=== PATIENT | female | born 1960 | race Caucasian/White ===

== ENCOUNTER → 2018-03-20 10:08 | Outpatient (CLI) | payer OTHER, SELFPAY ==
--- NOTE | 2018-03-20 10:01 | DI.REPORT_ITS ---
SYMPTOM/DIAGNOSIS: RIGHT BIMALLEOLAR FRACTURE RIGHT ANKLE: 03/20 Three views were obtained and show previously described bimalleolar fracture. The fracture appears to be healing with no gross interval change in alignment of fracture fragments in comparison with examination of February 18.
== END ==
PROVIDERS: Visit Provider Physician Assistant
DX: S82.841D Displaced bimalleolar fracture of right lower leg, subsequent encounter for closed fracture with routine healing (principal)
CPT/HCPCS: 73610

== ENCOUNTER 2018-04-28 17:05 | Outpatient (REF) | payer OTHER, SELFPAY | END 2018-04-28 17:25 | LOC: NCHCN 17:05 | PROVIDERS: Visit Provider Internal Medicine | DX: Z87.440 Personal history of urinary (tract) infections (principal) | CPT/HCPCS: 87077; 87086; 87186 ==

== ENCOUNTER 2019-01-13 14:50 | Outpatient (REF) | payer BC, SELFPAY ==
[2019-01-13 21:48] LABS: Anion Gap 11.3 mmol/L (3-11); BUN 12 mg/dL (7-18); CO2 27.7 mmol/L (21.0-32.0); CREATININE 0.53 mg/dL (0.55-1.02); Calcium 9.2 mg/dL (8.5-10.1); Chloride 104 mmol/L (98-107); Glucose 117 mg/dL (70-100); Potassium 3.9 mmol/L (3.5-5.1); Sodium 143 mmol/L (136-145)
[2019-01-13 22:27] LABS: Calculated LDL 113; Cholesterol 217 mg/dL (50-200); HDL Cholesterol 54 mg/dL (40-60); Triglyceride 250 mg/dL (30-150)
== END 2019-01-13 15:10 ==
LOC: NCHCN 14:50
PROVIDERS: PCP Family Medicine; Visit Provider Specialist/Technologist Athletic Trainer
DX: Z00.00 Encounter for general adult medical examination without abnormal findings (principal); Z13.220 Encounter for screening for lipoid disorders; Z13.228 Encounter for screening for other metabolic disorders
CPT/HCPCS: 80048; 80061; 83721

== ENCOUNTER 2019-01-26 00:27 | Outpatient (CLI) | payer BC, SELFPAY ==
--- NOTE | 2019-01-26 13:09 | DI.CTLCSR_ITS ---
SYMPTOM/DIAGNOSIS: SMOKER, F17.[address] FOR LUNG CANCER SCREENING: Comparison is made with 11/06/17. The heart size is normal. Coronary artery calcifications and mild aortic calcifications are noted. There are no pleural or pericardial effusions or evidence of adenopathy. There is underlying centrilobular emphysema. There is mild scarring in the medial right middle lobe and lingula. No pulmonary nodules are seen. Scoliosis and degenerative changes are noted in the spine. Gallstones are incidentally noted. IMPRESSION: Lung Rads, Category 1. Negative. Yearly low dose screening CT is recommended. Lung-RAD Category: Lung RADS Category 1- Negative
== END 2019-01-26 00:47 ==
PROVIDERS: PCP Family Medicine; Visit Provider Specialist/Technologist Athletic Trainer
DX: Z12.2 Encounter for screening for malignant neoplasm of respiratory organs (principal); F17.210 Nicotine dependence, cigarettes, uncomplicated; J98.4 Other disorders of lung
CPT/HCPCS: G0297

== ENCOUNTER 2020-01-28 00:34 | Outpatient (CLI) | payer OTHER, SELFPAY ==
--- NOTE | 2020-01-28 12:35 | DI.CTLCSR_ITS ---
EXAM: CT CHEST LUNG CANCER SCREEN CLINICAL HISTORY: The patient reportedly has a History of Smoking 30 pack years and presently smokes or has quit the past 15 years. TECHNIQUE: Imaging Protocol: Axial computed tomography images with coronal and sagittal reformatted images were created and reviewed COMPARISON: CT CT CHEST LUNG CANCER SCREEN from 01/26/2019 FINDINGS: Tracheobronchial tree: Patent where visualized. Mediastinum and Marquita: No dominant adenopathy or fluid collection. Pulmonary parenchyma: No consolidation or dominant measurable mass. Mild to moderate centrilobular em physema. Scattered areas of parenchymal scarring. Lung Nodules: None. Pleura: No effusion or pneumothorax. Heart: The heart is not dilated. Moderate coronary artery calcification is present. No significant p ericardial effusion. Aorta: Thoracic aorta non-dilated.Atherosclerosis. Upper abdomen: Fatty infiltration of the liver. Bones: Degenerative changes. Left convex scoliosis. Unchanged fusion of multiple left ribs and the left transverse processes in the upper thoracic spine. Soft Tissues: Unremarkable. IMPRESSION: No pulmonary nodules. Lung RADS Cat 1 - Negative: No nodules and definitely benign nodules Lung-RADS 1.0 CATEGORIES: Category 0 - Prior chest CT exam(s) being located for comparison. Category 1 - Annual screening in 12 months. No nodules or definitely benign nodules. Category 2 - Annual screening in 12 months. Benign appearance. Nodules with low likelihood of becomin g active cancer. Category 3 - 6-month follow-up. Probably benign. Short-term follow-up suggested. Nodules with low lik elihood of becoming active cancer. Category 4A - 3-month follow-up and CT/PET if >8 mm in size. Suspicious finding. Findings which requi re additional testing. Category 4B - Findings which require additional testing and tissue sampling. Suspicious finding. C Added to Any of the Above - History of prior lung cancer screening. S Added to Any of the Above - Significant unexpected other finding. RADIATION DOSE DELIVERED: Total DLP DATA REPOSITORY: All CT scans at this facility are submitted to the National Radiology Data Registry (NRDR) Dose Index Registry (DIR) with the [employer] (ACR). RADIATION OPTIMIZATION: All CT scans at this facility use at least one of these dose optimization te chniques: automated exposure control; mA and/or kV adjustment per patient size (includes targeted exa ms where dose is matched to clinical indication); or iterative reconstruction.
== END 2020-01-28 00:54 ==
PROVIDERS: PCP Internal Medicine; Visit Provider Internal Medicine
DX: Z12.2 Encounter for screening for malignant neoplasm of respiratory organs (principal); J43.8 Other emphysema; K76.0 Fatty (change of) liver, not elsewhere classified; Z87.891 Personal history of nicotine dependence
CPT/HCPCS: G0297

== ENCOUNTER 2020-03-26 13:32 | Outpatient (REF) | payer OTHER, SELFPAY | END 2020-03-26 13:52 | LOC: NCHCN 13:32 | PROVIDERS: PCP Internal Medicine; Visit Provider Internal Medicine | DX: R19.7 Diarrhea, unspecified (principal) | CPT/HCPCS: 87505; 82270; 83630 ==

== ENCOUNTER 2020-04-01 02:19 | Outpatient (CLI) | payer OTHER, SELFPAY ==
[2020-04-03 17:57] LABS: COVID-19 RT-PCR Result NEGATIVE (Negative)
== END 2020-04-01 02:39 ==
PROVIDERS: PCP Internal Medicine; Visit Provider Surgery
DX: Z01.818 Encounter for other preprocedural examination (principal)
CPT/HCPCS: U0003

== ENCOUNTER 2020-04-05 10:27 | Day surgery (SDC) | payer OTHER, SELFPAY ==
[2020-04-05 10:39] VITALS: BP 138/78; PULSE 97; RESP 18; TEMP 36.2; O2SAT 94
[2020-04-05] MEDS: Lactated Ringers 1,000 ML 80 ML IV (11:09)
--- NOTE | 2020-04-05 13:28 | BOWEL_PTH ---
PATIENT: Karen Ramos LOC: [facility] U#:[id number] AGE/SX: 60/F ROOM: RE04/05/[address]: Priti Salmeron MD : 1960 BED: DIS: 04/05/2020 SPEC #: [id number] RECD: 04/05/20 17:35 STATUS: JEFF REQ #: [id number] CECY: 04/05/20 13:[address]: Priti Salmeron DEPT: Surgical Specimen RECD BY: Sarah Ralph ENTERED: 04/05/20 17:37 SP TYPE: Bowel OTHR DR: Hawk Miller Tissues: 1 - STOMACH BIOPSY 2 - BIOPSY BOWEL Procedures: GROSS AND MICRO LEVEL 4 Comments: [id number]
--- NOTE | 2020-04-05 14:02 | W.PM.DSUDISC ---
Discharge Plan Disposition Patient Disposition: HOME Condition: Good Discharge Details Reason For Visit: EGD, Colonoscopy Attending Provider: Priti Salmeron Primary Care Provider: Hawk Miller Home Meds and New Rx's Prescriptions: New famotidine [Pepcid] 20 mg tablet 20 mg PO DAILY Qty: 30 RF: 2 Continued venlafaxine 75 mg capsule,extended release 24hr 75 mg PO DAILY RF: 0 Incruse Ellipta 62.5 mcg/actuation blister with device 1 inh IH DAILY RF: 0 naproxen sodium [Aleve] 220 MG tablet 440 mg PO BID RF: 0 albuterol sulfate [ProAir HFA] 8.5 GM HFA aerosol inhaler 2 puff Inhalation Q6H PRN RF: 0 Mucinex 1,200 MG tablet extended release 12hr 1,200 mg PO DAILY RF: 0 Advair HFA 60 PUFF/INH HFA aerosol inhaler 1 puff PO DAILY RF: 0 Discharge Instructions Additional Instructions: Findings: Your upper endoscopy showed inflammation in the esophagus and stomach. My office will contact you with biopsy results. If possible, limit the amount of Aleve taken as this can irritate the stomach. A daily antacid was sent to your pharmacy to treat this. One small polyp was removed from the colon. Follow up: If the colon polyp is adenomatous, plan for a colonoscopy in 5-7 years. Please call if you develop: fevers >101.5 Nausea or Vomiting Abdominal pain that is not transient DAY SURGERY UNIT POST COLONOSCOPY INSTRUCTIONS 1. Because there will be medication in your system for the next 24 hours, you may feel a little sleepy. Your coordination will be affected. Therefore: a. Do not drive or operate dangerous equipment for 24 hours. b. Do not drink alcohol beverages for 24 hours (not even beer). c. Plan to go home and rest for the day. 2. Generally there are no restrictions on your activity after a day or so has gone by, but you may feel a bit fatigued for a few days. 3 After you arrive home you may have a light meal and return to a normal diet as you can tolerate it without feeling sick to your stomach. 4. After surgery, you may feel pain or discomfort. This should be only transient, but if it persists please contact your doctor. 5. If there are any questions regarding the findings of your procedure, please feel free to contact your doctor. 6. If you are unable to contact your doctor with a problem, contact the hospital at [phone]. 7. Continue all your regular medications unless directed otherwise. I understand the above instructions and have no questions. Signature of Patient or Responsible Adult Escort Date/Time Name of Responsible Adult Escort Signature of Nurse Date/Time Activity:: Activity as Tolerated Diet:: As Tolerated Discharge Orders Discharge Orders: Discharge Order (Routine); Ordered 04/05/20 Ordered By: Priti Salmeron DS: Diagnosis Discharge Diagnosis (1) Esophagitis: Status: Acute (2) Gastritis: Status: Acute (3) Diverticulosis: Status: Acute (4) Colon polyp: Status: Acute
--- NOTE | 2020-04-05 14:05 | W.COLOREPORT ---
Date of service: 04/05/20 Time of Service: 14:06 Colonoscopy Report Date of procedure: 04/05/20 Pre-op diagnosis general: Dysphagia, screening colonoscopy Post-op diagnosis procedure note: other (Esophagitis, gastritis, diverticulosis, sigmoid polyp) Procedure: EGD with gastric biopsies Colonoscopy with cold forceps polypectomy Surgeon: Priti Salmeron Anesthesia proc note operative: MAC Indications: This 60 year old patient reports feeling like bread/spaghetti will get stuck in her esophagus. She is due for a screening colonoscopy. Her last one in 2007 showed polyps. No FH colon cancer. Procedure Description: The patient was placed in the left lateral position and propofol titrated to sedation. The endoscope was advanced into the esophagus under direct visualization. The scope was passed through the stomach and into the duodenum. There was mild duodenitis in the bulb but no ulceration noted. The stomach itself showed moderate gastritis including on retroflexed view of the fundus and lesser curvature. The antrum had a few very shallow ulcerations. Biopsies were taken from the gastric antrum. The GE junction was inspected and showed no significant stricture, masses or Barretts. There was mild reflux esophagitis noted. The scope was slowly withdrawn with no other esophageal lesions found. Digital rectal examination revealed no abnormalities. The scope was advanced to the cecum without difficulty. The ileocecal valve and appendiceal orifice were clearly identified. The prep was good. The scope was slowly withdrawn over the course of greater than 6 minutes with no abnormalities seen in the ascending, transverse, descending colon. In the sigmoid colon, mild diverticulosis was noted. A diminuitive polyp at 35cm was removed with the cold forcepts. The rectum was normal including on retroflexed view. The patient tolerated the procedure well and was stable to recovery. Plan for routine screening colonoscopy in 5-7 years if the polyp is adenomatous.
[2020-04-05 14:30] VITALS: BP 114/65; PULSE 81; RESP 16; TEMP 36.2; O2SAT 94
== END 2020-04-05 14:44 | disposition home or self-care (01) ==
PROVIDERS: PCP Internal Medicine; Visit Provider Surgery
PROC: (CPT 45380; principal; 2020-04-05 11:30)
DX: Z12.11 Encounter for screening for malignant neoplasm of colon (principal); D12.5 Benign neoplasm of sigmoid colon; K29.80 Duodenitis without bleeding; K29.70 Gastritis, unspecified, without bleeding; K21.0 Gastro-esophageal reflux disease with esophagitis
CPT/HCPCS: 45380; 43239; 88305; J2001; J2704

== ENCOUNTER 2020-04-22 14:44 | Inpatient (IN) | payer OTHER, SELFPAY ==
[2020-04-22] VITALS (77 sets, daily range): BP systolic 90–153; BP diastolic 45–117; PULSE 80–115; RESP 2–32; TEMP 36.4–37.1; O2SAT 87–100
--- NOTE | 2020-04-22 14:45 | RT.EKG_ITS ---
APPROVED REPORT Exam: Resting ECG Patient Location: E HR:87 bpm ECG Measurements Heart Rate [address] 148 P 0 QRSd 94 QRS 72 QT 394 T 32 QTc 474 Conclusion Sinus rhythm...normal P axis, V-rate 50- 99 Abnormal T, consider ischemia, anterior leads...T <-0.20mV, V2-V4 no old for comaprison
--- NOTE | 2020-04-22 15:00 | DI.RAD_ITS ---
EXAM: XR PORTABLE CHEST AP CLINICAL HISTORY: cough TECHNIQUE: 2D digital imaging was performed. COMPARISON: CR CHEST 2 VIEWS PA,LAT from 08/15/[address] CHEST LUNG CANCER SCREEN from 01/28/2020 FINDINGS: MEDIASTINUM: Normal. HEART: Normal. PULMONARY VASCULATURE: Normal. LUNGS: No focal consolidating infiltrates. Mild diffuse interstitial disease which appears chronic. PLEURAL SPACE: No pleural effusion or pneumothorax. BONE:Within normal limits for the patient's age. OTHER FINDINGS:Normal. IMPRESSION: No acute pulmonary findings. DATA REPOSITORY: RADIATION DOSE DELIVERED:
[2020-04-22 15:24] LABS: Abs Immature Grans 0.07 10^3/uL (0.0-0.06); Absolute Eosinophil Count 0.22 10^3/uL (0.0-0.7); Absolute Lymphocyte Count 3.19 10^3/uL (1.2-3.4); Basophils % 0.6; Eosinophils % 1.4; HCT 48.9 % (36.0-46.0); HGB 16.5 g/dL (11.2-15.7); Immature Grans % 0.5; Lymphocytes % 20.6; MCH 35.6 pg (27.0-33.0); MCHC 33.7 % (32.0-36.0); MCV 105.6 fL (80-95); MPV 10.4 fL (8.0-11.0); Monocytes % 11.5; Neutrophils % 65.4; Nucleated RBC 0 %; Platelet Count 247 10^3/uL (130-400); RBC 4.63 10^6/uL (3.93-5.22); RDW 13.1 % (11.7-14.6); RDW-SD 51.3 fL
[2020-04-22] MEDS: methylPREDNISolone SUCC 125 MG VIAL IVP (15:27)
[2020-04-22 15:34] LABS: Absolute Basophil Count 0.09 10^3/uL (0.0-0.2); Absolute Monocyte Count 1.78 10^3/uL (0.1-0.8); Absolute Neutrophil Count 10.14 10^3/uL (1.2-6.7)
[2020-04-22 15:37] LABS: Lactate 1.1 mmol/L (0.9-1.7)
[2020-04-22 15:43] LABS: Diff Comment Agrees w/ Instrument; Macrocytosis 1+; Polychromasia Present
[2020-04-22 15:56] LABS: ALT 44 U/L (14-59); AST 35 U/L (15-37); Albumin 3.7 g/dL (3.4-5.0); Alkaline Phosphatase 143 U/L (46-116); Anion Gap 8.8 mmol/L (3-11); BUN 5 mg/dL (7-18); Bilirubin, Total 1.3 mg/dL (0.2-1.0); CO2 31.2 mmol/L (21.0-32.0); CREATININE 0.63 mg/dL (0.55-1.02); Calcium 9.4 mg/dL (8.5-10.1); Chloride 98 mmol/L (98-107); Glucose 111 mg/dL (74-106); Potassium 3.1 mmol/L (3.5-5.1); Sodium 138 mmol/L (136-145); Total Protein 8.3 g/dL (6.4-8.2); Troponin I < 0.05 ng/mL (<0.06)
--- NOTE | 2020-04-22 16:00 | DI.CT_ITS ---
EXAM: CT CHEST PE CTA CLINICAL HISTORY: cough, shortness of breath, chest pain. TECHNIQUE: Imaging Protocol: Axial CT angiography was performed with multi-slice acquisition and mu lti-planar and/or 3D reconstructions. CONTRAST MATERIAL: Intravenous: Omnipaque 350 Contrast volume:100 ml COMPARISON: CT CT CHEST LUNG CANCER SCREEN from 01/28/2020 FINDINGS: Pulmonary Arteries: No evidence of filling defect to suggest pulmonary emboli. Tracheobronchial tree: Patent where visualized. Mediastinum and Marquita: No dominant adenopathy or fluid collection. Pulmonary parenchyma: Changes of centrilobular emphysema. Small area of atelectasis or infiltrate an teriorly in the right upper lobe. Pleura: No effusion or pneumothorax. Heart: The heart is not dilated. Moderate coronary artery calcifications are seen. Aorta: Thoracic aorta non-dilated. Upper abdomen: Unremarkable. Bones: Degenerative changes. IMPRESSION: No evidence of pulmonary embolism or other acute abnormality.. RADIATION DOSE DELIVERED: 361.56mGy.cm Total DLP DATA REPOSITORY: All CT scans at this facility are submitted to the National Radiology Data Registry (NRDR) Dose Index Registry (DIR) with the [employer] (ACR). RADIATION OPTIMIZATION: All CT scans at this facility use at least one of these dose optimization te chniques: automated exposure control; mA and/or kV adjustment per patient size (includes targeted exa ms where dose is matched to clinical indication); or iterative reconstruction.
[2020-04-22] MEDS: Omnipaque 350 MG/ML 100 ML BTL IJ (16:34)
[2020-04-22] MEDS: Normal Saline - Diluent 50 ML VIAL IV (16:36)
--- NOTE | 2020-04-22 16:52 | ED.GENADUL_ITS ---
Discharge Plan Disposition Patient Disposition: [facility] INPATIENT Condition: Serious Discharge Details Clinical Impression: Asthma exacerbation in COPD, Hypoxia Primary Care Provider: Hawk Miller ED Provider: Dean Jernigan Home Meds and New Rx's Prescriptions: No Action venlafaxine 75 mg capsule,extended release 24hr 75 mg PO DAILY RF: 0 Incruse Ellipta 62.5 mcg/actuation blister with device 1 inh IH DAILY RF: 0 naproxen sodium [Aleve] 220 MG tablet 440 mg PO BID RF: 0 albuterol sulfate [ProAir HFA] 8.5 GM HFA aerosol inhaler 2 puff Inhalation Q6H PRN RF: 0 Mucinex 1,200 MG tablet extended release 12hr 1,200 mg PO DAILY RF: 0 Advair HFA 60 PUFF/INH HFA aerosol inhaler 1 puff PO DAILY RF: 0 famotidine [Pepcid] 20 mg tablet 20 mg PO DAILY Qty: 30 RF: 2 Medical Decision Making 17:00 -- 60-year-old female with COPD here with productive cough, fatigue, shortness of breath, recent chest pain. Patient is hypoxic and requiring oxygen. Concern for pneumonia with COPD exacerbation versus pulmonary embolism. Patient received Solu-Medrol 125 mg IV. Will give albuterol inhaler. Screening ECG was reviewed and interpreted by me: 87 bpm, T wave inversions are noted anteriorly V1 to V3. Consider ACS. Will check troponin. Will attempt to obtain old ECG. Initial labs reviewed and leukocytosis noted. Lactate normal. Will initiate antibiotic coverage with cefepime 2 g IV. Patient does have hypokalemia of 3.1. I will give potassium chloride IV. Initial troponin negative. Chest x-ray reviewed and interpreted by radiology: No acute cardiopulmonary disease. Consider pulmonary embolism. Will obtain CT of the chest. --CT of the chest was reviewed and interpreted by radiology: No acute findings. Respiratory therapist is evaluating patient. --Increased air movement after neb treatments. 19:19 --despite multiple DuoNeb's and Solu-Medrol, respiratory therapy notes patient desaturating to mid 80s off oxygen at rest. Patient is not typically on oxygen at home. Plan will be to admit for COPD exacerbation. We will contact hospitalist. Will maintain PUI status. 19:25 --I spoke with Dr. Hannon, discussed ED presentation and course, he will admit the patient. Care transition to hospitalist service. HPI General Mode of arrival: EMS . Date/Time Provider Initiated Documentation: 04/22/20 15:05 . Limitations to Documentation: no limitations . Information obtained by: patient and EMS . HPI Narrative: 60-year-old female smoker with history of COPD, presents with chief complaint of difficulty breathing. Patient notes she has had shortness of breath for the past 1 week. Symptoms are worsening. She also notes productive cough. She is concerned that she may have pneumonia. Oxygen saturations lower than normal in the lower 80s today at home. Patient also notes generalized weakness, some dizziness, sinus congestion and headache frontal. Patient also notes that she has had some pain in her left chest that goes to her left shoulder since yesterday. This pain has seemed to be improved today. She denies leg swelling or calf pain. Patient has no recent travel, no contact with known Kovic illness. Related Data Home Medications Medication Instructions Recorded Confirmed Mucinex 1,200 mg PO DAILY 01/21/18 04/22/20 albuterol sulfate [ProAir HFA] 2 puff INHALATION Q6H PRN inhaler 01/21/18 04/22/20 naproxen sodium [Aleve] 440 mg PO BID 01/21/18 04/22/20 Advair HFA 1 puff PO DAILY 03/10/18 04/22/20 umeclidinium 62.5 mcg/actuation 1 inh IH DAILY 04/10/19 04/22/20 blister powder for inhalation venlafaxine 75 mg capsule,extended 75 mg PO DAILY 03/29/20 04/22/20 release 24 hr famotidine [Pepcid] 20 mg PO DAILY #30 tab 04/05/20 04/22/20 Previous Rx's Medication Instructions Recorded famotidine [Pepcid] 20 mg PO DAILY #30 tab 04/05/20 Allergies Allergy/AdvReac Type Severity Reaction Status Date / Time Sulfa (Sulfonamide AdvReac Severe LOWERS BP Unverified 04/22/20 14:59 Antibiotics) General Stated Complaint: SOB RADHA: 2 Review of Systems All systems reviewed & are unremarkable except as noted in HPI and below Constitutional Constitutional: Denies fever(s) Cardiovascular Cardiovascular: Reports as per HPI Respiratory Respiratory: Reports as per HPI [facility] Medical History Adenomatous colon polyp Alcohol abuse COPD (chronic obstructive pulmonary disease) Depression H/O recurrent urinary tract infection Lower back pain Smoker Varicose veins of both lower extremities Surgical History History of shoulder surgery Hx of cataract surgery bilat. Hx of tonsillectomy Tubal ligation status Family History Other Cancer Diabetes Heart disease Social History Smoking/Tobacco Use Status: Current every day Tobacco Type: cigarettes Alcohol Intake: current Alcohol Intake frequency: 0-2 drinks per day Alcohol type: hard liquor Drug use: Never Substance use type: does not use Do you feel safe at home: Yes Do you feel safe in your relationship?: Yes Exam Const General: cooperative HENMT Mouth: moist mucous membranes Eyes Conjunctivae: normal conjunctivae Sclera: normal sclerae Neck Neck: trachea midline and supple Resp Effort & Inspection: able to speak in complete sentences, cough and tachypneic Auscultation: no rales and wheezes Cardio Jugular venous pressure: no JVD Rate: regular rate and not tachycardic Rhythm: regular rhythm GI Palpation: soft, not firm, no guarding, no masses, not rigid and nontender Skin General skin exam: no rashes or lesions noted Neuro General: patient alert, patient awake, patient oriented x3 and tone normal Extrem General: no calf tenderness and no edema Psych Appearance: grossly normal Mental Status: mental status grossly normal Speech and Movement: speech and movement normal Course Vital Signs Vital signs: Vital Signs Temperature 37.1 C 04/22/20 14:48 Pulse 87 04/22/20 14:48 Respiratory Rate 20 04/22/20 14:48 Blood Pressure 134/78 04/22/20 14:48 Pulse Oximetry 97 04/22/20 14:48 Temperature 37.1 C 04/22/20 14:48 Temperature Source Skin 04/22/20 14:48 Pulse 87 04/22/20 14:48 Respiratory Rate 22 04/22/20 15:21 Respiratory Effort Labored 04/22/20 15:21 Respiratory Depth Shallow 04/22/20 15:21 Respiratory Pattern Irregular 04/22/20 15:21 Blood Pressure 134/78 04/22/20 14:48 Blood Pressure Position Supine 04/22/20 14:48 Pulse Oximetry 97 04/22/20 14:48 Oxygen Delivery Method Nasal Cannula 04/22/20 14:48 Oxygen Flow Rate 2 04/22/20 14:48 Pain Level 10 04/22/20 15:21 Lab/Test Results Lab/Test Results: 04/22/20 15:05 Blood Blood Culture - Pending 04/22/20 15:35 Blood Blood Culture - Pending Laboratory Tests Range/Units 04/22/20 04/22/20 04/22/20 15:20 15:20 15:20 WBC (4.4-10.8) 10^3/uL 15.50 H RBC (3.93-5.22) 10^6/uL 4.63 Hgb (11.2-15.7) g/dL 16.5 H Hct (36.0-46.0) % 48.9 H MCV (80-95) fL 105.6 H MCH (27.0-33.0) pg 35.6 H MCHC (32.0-36.0) % 33.7 RDW (11.7-14.6) % 13.1 Plt Count (130-400) 10^3/uL 247 MPV (8.0-11.0) fL 10.4 Immature Gran % 0.5 Neutrophils % 65.4 Lymphocytes % 20.6 Monocytes % 11.5 Eosinophils % 1.4 Basophils % 0.6 Nucleated RBC % % 0 Absolute Neutrophils (1.2-6.7) 10^3/uL 10.14 H Absolute Lymphocytes (1.2-3.4) 10^3/uL 3.19 Absolute Monocytes (0.1-0.8) 10^3/uL 1.78 H Absolute Eosinophils (0.0-0.7) 10^3/uL 0.22 Absolute Basophils (0.0-0.2) 10^3/uL 0.09 RBC Morphology See below Polychromasia Present Macrocytosis 1+ VBG Lactate (0.9-1.7) mmol/L 1.1 Cancelled Sodium (136-145) mmol/L 138 Potassium (3.5-5.1) mmol/L 3.1 L Chloride (98-107) mmol/L 98 Carbon Dioxide (21.0-32.0) mmol/L 31.2 Anion Gap (3-11) mmol/L 8.8 BUN (7-18) mg/dL 5 L Creatinine (0.55-1.02) mg/dL 0.63 Estimated GFR/1.73 m2 (mL/min/1.73m2) >= 60.00 Glucose (74-106) mg/dL 111 H Calcium (8.5-10.1) mg/dL 9.4 Total Bilirubin (0.2-1.0) mg/dL 1.3 H AST (15-37) U/L 35 ALT (14-59) U/L 44 Alkaline Phosphatase (46-116) U/L 143 H Troponin I (<0.06) ng/mL < 0.05 Total Protein (6.4-8.2) g/dL 8.3 H Albumin (3.4-5.0) g/dL 3.7
--- NOTE | 2020-04-22 17:10 | DI.VRAD_ITS ---
PROCEDURE INFORMATION: Exam: CT Angiography Chest With Contrast Exam date and time: 04/22/2020 4:41 PM Age: 60 years old Clinical indication: Shortness of breath TECHNIQUE: Imaging protocol: Computed tomographic angiography of the chest with intravenous contrast. 3D rendering (Not supervised by radiologist): MIP and/or 3D reconstructed images were created by the technologist. Radiation optimization: All CT scans at this facility use at least one of these dose optimization techniques: automated exposure control; mA and/or kV adjustment per patient size (includes targeted exams where dose is matched to clinical indication); or iterative reconstruction. Contrast material: OMNI 350; Contrast volume: 100 ml; Contrast route: INTRAVENOUS (IV); COMPARISON: CT CHEST LUNG CANCER SCREEN 01/28/2020 1:04 PM FINDINGS: Pulmonary arteries: No pulmonary emboli. Aorta: No aortic aneurysm. No aortic dissection. Lungs: Emphysematous change. No acute consolidation. Small nodular lesion in the periphery of the right upper lobe appearing since 01/28/2020, follow-up suggested. Pleural space: No pleural effusion. No pneumothorax. Heart: No cardiomegaly. No pericardial effusion. Coronary artery calcifications. Lymph nodes: No significant adenopathy. Bones/joints: No acute findings. Soft tissues: Unremarkable. IMPRESSION: No acute findings. Dictated and Authenticated by: Gokul Okeefe MD. Ordering:TONY Moran MD
[2020-04-22] MEDS: CEFEPIME 2 GM in Normal Saline 100 ML IVPB (17:36)
[2020-04-22] MEDS: POTASSIUM CHLORIDE 20 MEQ/100 ML BAG 50 MEQ IVPB (17:49)
[2020-04-22] MEDS: Albuterol/Ipratropium 3 ML UPD VIAL UPD ×2 (17:57→18:44)
[2020-04-22] MEDS: Albuterol/Ipratropium 3 ML UPD VIAL (18:24)
--- NOTE | 2020-04-22 19:30 | RT.EKG_ITS ---
APPROVED REPORT Exam: Resting ECG Patient Location: E HR:107 bpm ECG Measurements Heart Rate 107 AXIS [place] 154 P 74 QRSd 87 QRS 77 QT 360 T 132 QTc 479 Conclusion Sinus tachycardia...rate> 99 Atrial premature complex...SV complex w/ short R-R interval T wave inversions V2-3, st dep laterally
[2020-04-22 19:52] LABS: Troponin I < 0.05 ng/mL (<0.06)
--- NOTE | 2020-04-22 22:00 | HPE_ITS ---
Date of service: 04/22/20 Time of Service: 22:01 Assessment and Plan Assessment and plan (1) Asthma exacerbation in COPD: Status: Acute Assessment and plan: She is having marketed shortness of breath. Chest x- ray does not show an infiltrate. She got cefepime in the ER but will hold on further antibiotics given her lack of fever, negative CT scan, physical findings. I most of her symptoms are related to her underlying COPD. COVID is being ruled out. She received Solu-Medrol in the emergency room. I do not see much evidence of bronchospasm at this point. We will hold on further steroids at this point in time. (2) Hypoxia: Status: Acute Assessment and plan: Patient is not on oxygen at baseline. Her sats drop precipitously on room air to 86%. Will continue on supplemental oxygen currently 2 L/min to keep her sats above 90%. COVID testing is pending. (3) Alcohol abuse: Status: Chronic Assessment and plan: She has a history of regular daily alcohol intake described as 2 drinks of hard liquor per day. We will have her on CIWA scoring. She does not appear to be in withdrawal at this time. History of Present Illness History of Present Illness Chief Complaint: COPD exacerbation/rule out COVID Narrative: This is a 60-year-old woman with a heavy tobacco use history who comes in with about a weeks worth of productive cough, fatigue, shortness of breath. She was able to measure her oxygen saturation and found it was lower than normal. She got a reading in the low 80% range today at home. She has had some dizziness, sinus congestion, and frontal headache. She also describes some pain in her left chest that goes into her left shoulder since yesterday, improved today. She has had no swelling in her legs or calf pain. She does not travel. She is not been working at her job at a [employer] and has no known contact with COVID disease. She visits her father on a regular basis who has emphysema. In the emergency room she received oxygen supplementation, nebulizer treatments, Solu-Medrol, cefepime. She wanted to try to go home but when taken off oxygen her saturation plummeted. She received potassium supplementation. She is being admitted to the intensive care unit for closer monitoring. Review of Systems Narrative: She has a chronic cough and some shortness of breath from her 1-1/2 pack/day smoking habit. She is noted her symptoms have been worse in the last week or so. Her boyfriend has not been sick nor has her father been sick. She has not had contact with COVID disease but is concerned she might have COVID. Her cough is been productive of some greenish sputum. She has not had fever. She is not having diarrhea or abdominal discomfort. [facility] Medical History Adenomatous colon polyp Alcohol abuse COPD (chronic obstructive pulmonary disease) Depression H/O recurrent urinary tract infection Lower back pain Smoker Varicose veins of both lower extremities Surgical History History of shoulder surgery Hx of cataract surgery bilat. Hx of tonsillectomy Tubal ligation status Family History Other Cancer Diabetes Heart disease Social History Smoking/Tobacco Use Status: Current every day Tobacco Type: cigarettes Alcohol Intake: current Alcohol Intake frequency: 0-2 drinks per day Alcohol type: hard liquor Drug use: Never Substance use type: does not use Do you feel safe at home: Yes Do you feel safe in your relationship?: Yes Meds Home Medications and Allergies Home Medications Medication Instructions Recorded Confirmed Type Mucinex 1,200 mg PO DAILY 01/21/18 04/22/20 History albuterol sulfate [ProAir HFA] 2 puff INHALATION Q6H PRN inhaler 01/21/18 04/22/20 History naproxen sodium [Aleve] 440 mg PO BID 01/21/18 04/22/20 History Advair HFA 1 puff PO DAILY 03/10/18 04/22/20 History umeclidinium 62.5 mcg/actuation 1 inh IH DAILY 04/10/19 04/22/20 History blister powder for inhalation venlafaxine 75 mg capsule,extended 75 mg PO DAILY 03/29/20 04/22/20 History release 24 hr famotidine [Pepcid] 20 mg PO DAILY #30 tab 04/05/20 04/22/20 Rx Allergies Allergy/AdvReac Type Severity Reaction Status Date / Time Sulfa (Sulfonamide AdvReac Severe LOWERS BP Unverified 04/22/20 14:59 Antibiotics) Exam Narrative Exam Narrative: On exam she has mild dyspnea with normal conversation. She appeared in mild respiratory distress. She was fully cooperative with exam. Her posterior lung exam notable for somewhat distant breath sounds. No adventitial breath sounds were present. I did not hear any rales. Her heart sounds were distant and rapid. Her abdomen was obese but completely nontender. Her lower extremities showed no significant edema bilaterally. Neurologically she is moving all extremities and appears to be fully coherent. Results Imaging Chest x-ray: report reviewed (Read as no acute disease.) Imaging Studies: A CT angiogram showed no evidence of a pulmonary embolism or sequela of COVID disease. Labs Result diagrams: 04/22/20 15:20 04/22/20 15:20 Labs: Laboratory Results - last 24 hr 04/22/20 04/22/20 04/22/20 15:20 15:20 15:20 WBC 15.50 H RBC 4.63 Hgb 16.5 H Hct 48.9 H MCV 105.6 H MCH 35.6 H MCHC 33.7 RDW 13.1 Plt Count 247 MPV 10.4 Immature Gran % 0.5 Neutrophils % 65.4 Lymphocytes % 20.6 Monocytes % 11.5 Eosinophils % 1.4 Basophils % 0.6 Nucleated RBC % 0 Absolute Neutrophils 10.14 H Absolute Lymphocytes 3.19 Absolute Monocytes 1.78 H Absolute Eosinophils 0.22 Absolute Basophils 0.09 RBC Morphology See below Polychromasia Present Macrocytosis 1+ VBG Lactate 1.1 Cancelled Sodium 138 Potassium 3.1 L Chloride 98 Carbon Dioxide 31.2 Anion Gap 8.8 BUN 5 L Creatinine 0.63 Estimated GFR/1.73 m2 >= 60.00 Glucose 111 H Calcium 9.4 Total Bilirubin 1.3 H AST 35 ALT 44 Alkaline Phosphatase 143 H Troponin I < 0.05 Total Protein 8.3 H Albumin 3.7 04/22/20 19:12 WBC RBC Hgb Hct MCV MCH MCHC RDW Plt Count MPV Immature Gran % Neutrophils % Lymphocytes % Monocytes % Eosinophils % Basophils % Nucleated RBC % Absolute Neutrophils Absolute Lymphocytes Absolute Monocytes Absolute Eosinophils Absolute Basophils RBC Morphology Polychromasia Macrocytosis VBG Lactate Sodium Potassium Chloride Carbon Dioxide Anion Gap BUN Creatinine Estimated GFR/1.73 m2 Glucose Calcium Total Bilirubin AST ALT Alkaline Phosphatase Troponin I < 0.05 Total Protein Albumin Last Vital Signs Temp 37.1 C 04/22/20 14:48 Pulse 89 04/22/20 21:00 Resp 13 04/22/20 21:01 BP 112/54 L 04/22/20 21:00 Pulse Ox 93 04/22/20 21:01 COVID-19 Screening Have you,or household,traveled outside [place] in last 14 days?: No Had IN PERSON contact w/suspected or confirmed C-19 person: No
[2020-04-22] MEDS: POTASSIUM CHLORIDE/0.9% NACL 1,000 ML 100 MEQ IV (22:36)
[2020-04-23] VITALS (31 sets, daily range): BP systolic 88–142; BP diastolic 57–84; PULSE 70–102; RESP 8–27; TEMP 36.4–36.9; O2SAT 87–99
[2020-04-23] MEDS: Acetaminophen 325 MG TAB 650 MG PO ×2 (03:36→12:54)
[2020-04-23] MEDS: Nicotine 14 MG/24 HR PATCH TD (03:37)
[2020-04-23 06:03] LABS: Abs Immature Grans 0.11 10^3/uL (0.0-0.06); Absolute Monocyte Count 1.34 10^3/uL (0.1-0.8); Basophils % 0.2; HCT 46.5 % (36.0-46.0); HGB 15.3 g/dL (11.2-15.7); Immature Grans % 0.6; Lymphocytes % 10.2; MCH 35.5 pg (27.0-33.0); MCHC 32.9 % (32.0-36.0); MCV 107.9 fL (80-95); MPV 10.9 fL (8.0-11.0); Monocytes % 7.8; Neutrophils % 81.2; Nucleated RBC 0 %; Platelet Count 240 10^3/uL (130-400); RBC 4.31 10^6/uL (3.93-5.22); RDW 12.8 % (11.7-14.6); RDW-SD 51.9 fL
[2020-04-23 06:07] LABS: Absolute Basophil Count 0.03 10^3/uL (0.0-0.2); Absolute Lymphocyte Count 1.75 10^3/uL (1.2-3.4); Absolute Neutrophil Count 13.97 10^3/uL (1.2-6.7)
[2020-04-23 06:09] LABS: Anion Gap 9.8 mmol/L (3-11); BUN 6 mg/dL (7-18); CO2 26.2 mmol/L (21.0-32.0); CREATININE 0.66 mg/dL (0.55-1.02); Calcium 8.7 mg/dL (8.5-10.1); Chloride 103 mmol/L (98-107); Glucose 152 mg/dL (74-106); Potassium 3.8 mmol/L (3.5-5.1); Sodium 139 mmol/L (136-145)
[2020-04-23 06:34] LABS: Diff Comment Diff Reviewed; Macrocytosis 2+
[2020-04-23 07:35] LABS: COVID-19 RT-PCR UVMMC Result Negative (Negative)
[2020-04-23] MEDS: Umeclidinium 7 CAP INHALER 1 CAP IH (07:59)
[2020-04-23] MEDS: Budesonide/Formoterol 160/4.5 6 GM 60 PUFF INH IH ×2 (07:59→19:36)
[2020-04-23] MEDS: guaiFENesin 600 MG TABCR 1200 MG PO (08:34)
[2020-04-23] MEDS: Normal Saline Flush 10 ML SYR IVP ×2 (08:34→16:05)
[2020-04-23] MEDS: Venlafaxine 37.5 MG CAPCR 75 MG PO (08:34)
[2020-04-23] MEDS: Famotidine 20 MG TAB PO (08:34)
[2020-04-23] MEDS: Folic Acid 1 MG TAB PO (08:34)
[2020-04-23] MEDS: Multivitamin TAB 1 TAB PO (08:35)
[2020-04-23] MEDS: Thiamine 100 MG TAB PO (08:35)
[2020-04-23] MEDS: Enoxaparin 40 MG/0.4 ML SYR SC (08:35)
--- NOTE | 2020-04-23 08:42 | INITIAL_ITS ---
- If Service Date Differs Date of service: 04/23/20 Time of Service: 08:42 Care Management Initial Assess REASON FOR HOSPITALIZATION:: Asthma exacerbation in COPD PAST MEDICAL HISTORY/PAST SURGICAL HISTORY:: Medical History . Adenomatous colon polyp. Alcohol abuse. COPD (chronic obstructive pulmonary disease). Depression. H/O recurrent urinary tract infection. Lower back pain. Smoker. Varicose veins of both lower extremities. Surgical History . History of shoulder surgery. Hx of cataract surgery. bilat. Hx of tonsillectomy. Tubal ligation status PREVIOUS FUNCTIONAL STATUS/SOCIAL/FAMILY SUPPORTS:: Karen lives in [place], [place] in a single family home with her significant other Denzel. They have been together for many years and she describes him as very supportive. Karen also has a son who lives in [place] and 4 grandchildren. Karen has not been able to work since the Covid pandemic started because she is unable to wear a mask as she has COPD. She is independent with ADLs and does not receive any services at home. She shared that she does help to care for her elderly father who has emphysema. CURRENT FUNCTIONAL STATUS:: Karen was sitting up in bed when CM met with her. She was pleasant and agreeable to conversation. Karen shared that she has been sick for about a week. She stated she usually gets better in a few days when she gets these episodes but this time it is worse. Karen has not had home oxygen in the past, but now qualifies based on the exercise oximetry assessment performed today. RT is working to get her set up with oxygen at home tomorrow and plans to provide her with a nebulizer as well. ADVANCE DIRECTIVES:: none on file Has patient been provided with info about the portal/API?: Yes Did the patient sign up for the portal?: No CODE STATUS:: Full Code INSURANCE COVERAGE / FINANCIAL ISSUES:: [employer] U IDs only CURRENT HOME/COMMUNITY SERVICES/EQUIPMENT:: None currently PRIMARY CARE PHYSICIAN:: Hawk Miller MD POTENTIAL DISCHARGE NEEDS:: Followup with PCP and discharge plan of care PATIENT/FAMILY EDUCATION NEEDS:: Discharge and follow up plans, limitations, [employer] TRANSPORTATION:: via private vehicle with Denzel PLAN:: Karen will be discharged home with new home O2 and a nebulizer. She will follow up with her PCP and discharge plan of care and transport with her significant other. CM will continue to support patient, family and discharge planning concerns.
--- NOTE | 2020-04-23 08:50 | PGE_ITS ---
Date of Service Date of service: 04/23/20 Time of Service: 15:55 Assessment and Plan Assessment and plan (1) Acute exacerbation of chronic obstructive pulmonary disease (COPD): Status: Acute Assessment and plan: COVID-19 negative. Does appear to have a bacterial component with purulent sputum and elevated procalcitonin. I started the patient on azithromycin and ceftriaxone. Continue prednisone. I have scheduled nebs. Add acapella. Obtain sputum culture. (2) Acute CHF: Status: Acute Assessment and plan: Check echo. BNP mildly elevated. Will give 1 dose of lasix now. (3) Hypoxia: Status: Acute Assessment and plan: Multifactorial and likely crhonic. We will reassess O2 levels tomorrow. For now, continue treatment of COPD exacerbations and what appears to be acute CHF. Patient is not on oxygen at baseline. COVID-19 negative. (4) Alcohol abuse: Status: Chronic Assessment and plan: Continue CIWA/vitamins, prn Po lorazepam. (5) Diarrhea: Status: Chronic Assessment and plan: Check stool studies. EGD/colonscopy on 04/05/2020: chemical gastropathy and tubular adenoma. (6) Folliculitis: Status: Acute Assessment and plan: Warm compresses (7) Fungal dermatitis: Status: Acute Assessment and plan: Will start antifungal ointment (8) Chronic back pain: Status: Chronic Assessment and plan: The patient denies LE weakness, saddle anesthesia. However, does report both fecal and urinary incontinence. We will obtain an MRI of lumbar spine on Saturday. (9) DVT prophylaxis: Status: Acute Assessment and plan: SC lovenox (10) Discharge planning issues: Status: Acute Assessment and plan: Code status changed to DNR/DNI. Transfer out of ICU. Subjective Subjective Interval history since last seen: Breathing feels better than normal. Needs 1 L at rest and 3 L with activity, per ambulatory pulse ox testing. Denies dizziness, chest pain. Endorses sputum production (yellow-green). Endorses diarrhea since before colonoscopy 3 weeks ago, but has had some leakage since. States her colonoscopy was negative. Also reports boils on her labia that she just popped. She says it happens on both sides of her labia. Nursing reported crackles B posteriorly [facility] up - IVF stopped. 94% on 2L. Not on O2 at home. No nebulizer machine at home. Wants to be DNR/DNI. Not scoring on CIWA. Afebrile. COVID neg. Exam Narrative Exam Narrative: General: pleasant middle-aged female with a wet productive cough, A&Ox3, no difficulty talking to me laying flat, on O2 HEENT: EOMI, MMM Heart: RRR, no m/r/g Lungs: crackles 1/[address] B lungs Abdomen: soft, nontender, nondistended Genital exam: remnants of what appears to be folliculitis (less likely cebacious cysts) on L labia; fungal dermatitis in the groin Extremities: +1 BLE edema Objective Last Vital Signs Temp 36.5 C 04/23/20 04:30 Pulse 87 04/22/20 23:46 Resp 17 04/22/20 23:46 BP 132/79 04/22/20 23:46 Pulse Ox 92 04/23/20 00:02 Laboratory Results - last 24 hr 04/22/20 04/22/20 04/22/20 15:20 15:20 15:20 WBC 15.50 H RBC 4.63 Hgb 16.5 H Hct 48.9 H MCV 105.6 H MCH 35.6 H MCHC 33.7 RDW 13.1 Plt Count 247 MPV 10.4 Immature Gran % 0.5 Neutrophils % 65.4 Lymphocytes % 20.6 Monocytes % 11.5 Eosinophils % 1.4 Basophils % 0.6 Nucleated RBC % 0 Absolute Neutrophils 10.14 H Absolute Lymphocytes 3.19 Absolute Monocytes 1.78 H Absolute Eosinophils 0.22 Absolute Basophils 0.09 RBC Morphology See below Polychromasia Present Macrocytosis 1+ VBG Lactate 1.1 Cancelled Sodium 138 Potassium 3.1 L Chloride 98 Carbon Dioxide 31.2 Anion Gap 8.8 BUN 5 L Creatinine 0.63 Estimated GFR/1.73 m2 >= 60.00 Glucose 111 H Calcium 9.4 Total Bilirubin 1.3 H AST 35 ALT 44 Alkaline Phosphatase 143 H Troponin I < 0.05 Total Protein 8.3 H Albumin 3.7 COVID-19 PCR Nasopharyn COVID-19 PCR Ref Test Perform Site 04/22/20 04/22/20 04/23/20 15:35 19:12 05:30 WBC RBC Hgb Hct MCV MCH MCHC RDW Plt Count MPV Immature Gran % Neutrophils % Lymphocytes % Monocytes % Eosinophils % Basophils % Nucleated RBC % Absolute Neutrophils Absolute Lymphocytes Absolute Monocytes Absolute Eosinophils Absolute Basophils RBC Morphology Polychromasia Macrocytosis VBG Lactate Sodium 139 Potassium 3.8 D Chloride 103 Carbon Dioxide 26.2 Anion Gap 9.8 BUN 6 L Creatinine 0.66 Estimated GFR/1.73 m2 >= 60.00 Glucose 152 H Calcium 8.7 Total Bilirubin AST ALT Alkaline Phosphatase Troponin I < 0.05 Total Protein Albumin COVID-19 PCR Negative Nasopharyn COVID-19 PCR Not Applicable Ref Test Perform Site [facility] lab 04/23/20 05:30 WBC 17.20 H RBC 4.31 Hgb 15.3 Hct 46.5 H MCV 107.9 H MCH 35.5 H MCHC 32.9 RDW 12.8 Plt Count 240 MPV 10.9 Immature Gran % 0.6 Neutrophils % 81.2 Lymphocytes % 10.2 Monocytes % 7.8 Eosinophils % 0.0 Basophils % 0.2 Nucleated RBC % 0 Absolute Neutrophils 13.97 H Absolute Lymphocytes 1.75 Absolute Monocytes 1.34 H Absolute Eosinophils 0.00 Absolute Basophils 0.03 RBC Morphology See below Polychromasia Macrocytosis 2+ VBG Lactate Sodium Potassium Chloride Carbon Dioxide Anion Gap BUN Creatinine Estimated GFR/1.73 m2 Glucose Calcium Total Bilirubin AST ALT Alkaline Phosphatase Troponin I Total Protein Albumin COVID-19 PCR Nasopharyn COVID-19 PCR Ref Test Perform Site Objective Narrative Objective Narrative: CXR; 1. Mild vascular congestion. 2. Lungs are well aerated without a focal area of consolidation.
--- NOTE | 2020-04-23 09:31 | DI.VRAD_ITS ---
PROCEDURE INFORMATION: Exam: XR Chest, 1 View Exam date and time: 04/23/2020 9:10 AM Age: 60 years old Clinical indication: Other: Crackles TECHNIQUE: Imaging protocol: XR of the chest Views: 1 view. COMPARISON: CR XR PORTABLE CHEST AP 04/22/2020 3:18 PM FINDINGS: Lungs: Mild prominence and indistinctness of the pulmonary vasculature centrally. Mild prominence of the interstitium diffusely suggest mild edema. Lungs are well aerated without a focal area of consolidation. Pleural space: Unremarkable. No pleural effusion. No pneumothorax. Heart/Mediastinum: Cardiomegaly. Bones/joints: Unremarkable. IMPRESSION: 1. Mild vascular congestion. 2. Lungs are well aerated without a focal area of consolidation. Dictated and Authenticated by: Gustavo Jaime MD. Ordering:PAZ Turner MD
--- NOTE | 2020-04-23 09:40 | DI.RAD_ITS ---
EXAM: XR PORTABLE CHEST AP CLINICAL HISTORY: crackles TECHNIQUE: 2D digital imaging was performed. COMPARISON: CR XR PORTABLE CHEST AP from 04/22/2020 FINDINGS: MEDIASTINUM: Normal. HEART: Within normal limits given the projection. PULMONARY VASCULATURE: Mild prominence of the interstitium and pulmonary vasculature. LUNGS: No focal consolidating infiltrate. PLEURAL SPACE: No pleural effusion or pneumothorax. BONE:Left convex curvature of the spine. OTHER FINDINGS:Normal. IMPRESSION: Prominence of the interstitium and indistinct pulmonary vasculature which may reflect pulmonary edema . No focal consolidating infiltrates. DATA REPOSITORY: RADIATION DOSE DELIVERED:
[2020-04-23 09:43] LABS: Procalcitonin 0.2 ng/mL
[2020-04-23] MEDS: cefTRIAXone 1 GM/50 ML BAG IVPB (12:49)
[2020-04-23] MEDS: predniSONE 20 MG TAB 40 MG PO (13:03)
[2020-04-23] MEDS: Albuterol/Ipratropium 3 ML UPD VIAL UPD ×2 (13:19→18:10)
[2020-04-23 13:52] LABS: NT-proBNP 316 pg/mL (<300)
[2020-04-23] MEDS: Normal Saline 500 ML IV (14:35)
[2020-04-23] MEDS: AZITHROMYCIN 500 MG in Normal Saline 250 ML 250 MG IVPB (14:36)
[2020-04-23] MEDS: Furosemide 20 MG/2 ML VIAL IVP (16:05)
[2020-04-23 16:58] LABS: Troponin I < 0.05 ng/mL (<0.06)
[2020-04-23] MEDS: diphenhydrAMINE 25 MG CAP PO (19:50)
[2020-04-24] VITALS (9 sets, daily range): BP systolic 95–130; BP diastolic 60–84; PULSE 82–92; RESP 8–22; TEMP 35.8–36.6; O2SAT 90–99
[2020-04-24] MEDS: Albuterol/Ipratropium 3 ML UPD VIAL UPD ×5 (00:25→23:00)
[2020-04-24] MEDS: Albuterol 2.5 MG/3 ML INH SOLN VIAL UPD (03:08)
[2020-04-24] MEDS: Acetaminophen 325 MG TAB 650 MG PO ×2 (03:08→12:26)
[2020-04-24] MEDS: Nicotine 14 MG/24 HR PATCH TD (03:14)
[2020-04-24] MEDS: LORazepam 1 MG TAB PO/SL ×2 (03:14→15:24)
[2020-04-24] MEDS: Budesonide/Formoterol 160/4.5 6 GM 60 PUFF INH IH ×2 (08:23→21:03)
[2020-04-24 08:37] LABS: Abs Immature Grans 0.07 10^3/uL (0.0-0.06); Absolute Eosinophil Count 0.03 10^3/uL (0.0-0.7); Absolute Lymphocyte Count 3.75 10^3/uL (1.2-3.4); Absolute Neutrophil Count 9.21 10^3/uL (1.2-6.7); Basophils % 0.3; Eosinophils % 0.2; HCT 44.3 % (36.0-46.0); HGB 14.5 g/dL (11.2-15.7); Immature Grans % 0.5; Lymphocytes % 25.9; MCH 35.2 pg (27.0-33.0); MCHC 32.7 % (32.0-36.0); MCV 107.5 fL (80-95); MPV 10.4 fL (8.0-11.0); Monocytes % 9.5; Neutrophils % 63.6; Nucleated RBC 0 %; Platelet Count 254 10^3/uL (130-400); RBC 4.12 10^6/uL (3.93-5.22); RDW-SD 51.8 fL; WBC 14.48 10^3/uL (4.4-10.8)
[2020-04-24 08:38] LABS: Absolute Basophil Count 0.04 10^3/uL (0.0-0.2); Absolute Monocyte Count 1.38 10^3/uL (0.1-0.8)
[2020-04-24 08:49] LABS: Anion Gap 9.2 mmol/L (3-11); BUN 6 mg/dL (7-18); CO2 28.8 mmol/L (21.0-32.0); CREATININE 0.59 mg/dL (0.55-1.02); Calcium 8.9 mg/dL (8.5-10.1); Chloride 103 mmol/L (98-107); Glucose 108 mg/dL (74-106); Magnesium 2.2 mg/dL (1.8-2.4); Sodium 141 mmol/L (136-145)
[2020-04-24 08:52] LABS: Potassium 2.6 mmol/L (3.5-5.1)
[2020-04-24] MEDS: Enoxaparin 40 MG/0.4 ML SYR SC (09:03)
[2020-04-24] MEDS: Venlafaxine 37.5 MG CAPCR 75 MG PO (09:04)
[2020-04-24] MEDS: Folic Acid 1 MG TAB PO (09:04)
[2020-04-24] MEDS: Famotidine 20 MG TAB PO (09:04)
[2020-04-24] MEDS: Multivitamin TAB 1 TAB PO (09:04)
[2020-04-24] MEDS: Thiamine 100 MG TAB PO (09:04)
[2020-04-24] MEDS: guaiFENesin 600 MG TABCR 1200 MG PO (09:04)
[2020-04-24] MEDS: predniSONE 20 MG TAB 40 MG PO (09:05)
--- NOTE | 2020-04-24 09:40 | PHA.REVIEW ---
Pharmacy Admission Review - Admission Clinical Review (Last Reviewed 04/22/20 @ 22:04 by Sam Hannon MD) Acute CHF (Acute) Discharge planning issues (Acute) DVT prophylaxis (Acute) Fungal dermatitis (Acute) Folliculitis (Acute) Acute exacerbation of chronic obstructive pulmonary disease (COPD) (Acute) Asthma exacerbation in COPD (Acute) Hypoxia (Acute) Sulfa (Sulfonamide Antibiotics) Adverse Reaction (Severe, Unverified 04/22/20 14:59) LOWERS BP Height 5 ft 6 in Weight 82.7 kg - Renal Dosing Renal Dosing: BUN 6 mg/dL (7-18) L 04/24/20 08:22 Creatinine 0.59 mg/dL (0.55-1.02) 04/24/20 08:22 Medications needing adjustments: Reviewed (crcl ~71ml/min) - Anticoagulation Anticoagulation: Hgb 14.5 g/dL (11.2-15.7) 04/24/20 08:22 Hct 44.3 % (36.0-46.0) 04/24/20 08:22 Plt Count 254 10^3/uL (130-400) 04/24/20 08:22 Creatinine 0.59 mg/dL (0.55-1.02) 04/24/20 08:22 DVT Prohphylaxis: Reviewed Medications: Enoxaparin Therapeutic Anticoagulation: N/A - Relevant Labs Sodium 141 mmol/L (136-145) 04/24/20 08:22 Potassium 2.6 mmol/L (3.5-5.1) L* D 04/24/20 08:22 Chloride 103 mmol/L (98-107) 04/24/20 08:22 Magnesium 2.2 mg/dL (1.8-2.4) 04/24/20 08:22 Electrolytes, C-Reactive P, ESR: Reviewed (KCL replacement ordered) - DM Control DM Control: Glucose 108 mg/dL (74-106) H 04/24/20 08:22 Insulin Dosing: N/A - Heart Failure/GA Heart Failure/GA: Troponin I < 0.05 ng/mL (<0.06) 04/23/20 13:25 NT-Pro-B Natriuret Pep 316 pg/mL (<300) H 04/23/20 13:25 EF%, ABDI's, B-Blockers, Diuretics: N/A - BP Control BP Control: Blood Pressure 105/63 Blood Pressure 130/84 If elevated: N/A - Home Meds Relevent Home Meds Not ordered & why?: symbicort ordered instead of home med incruse ellipta - Current meds Current Medication Order Review: Reviewed (CIWA protocol and meds ordered) Antibiotic Activity - Pharmacy Antibiotic Review Pharmacy Antibiotic Activity: Abx regimen adjustment (abx started due to purulent sputum and procalcitonin elevation. ceftriaxone and azithromycin. made provider aware of possible qt prolongation with azithromycin and home med venlafaxine. provider ordered tele)
[2020-04-24] MEDS: Potassium Chloride 20 MEQ TABCR 40 MEQ PO ×2 (09:42→15:24)
[2020-04-24] MEDS: Mylanta Suspension 30 ML CUP PO (10:31)
[2020-04-24] MEDS: POTASSIUM CHLORIDE 20 MEQ/100 ML BAG 50 MEQ IVPB ×2 (10:32→15:57)
--- NOTE | 2020-04-24 11:35 | PDOC.CMPRO ---
- If Service Date Differs Date of service: 04/24/20 Time of Service: 11:35 Care Management Progress Note S/O:Karen continues to slowly improve. Her WBC is trending down, she is afebrile and her electrolytes have normalized. She is to have an ECHO tomorrow and likely discharge early in the week. She will have new home oxygen if a repeat exercise oximetry confirms the need. A: Karen is a 60 year old woman admitted on 04/23/20 with COPD and asthma P: Karen will be discharged home with new home O2 and a nebulizer. She will follow up with her PCP and discharge plan of care and transport with her significant other. CM will continue to support patient, family and discharge planning concerns.
[2020-04-24] MEDS: cefTRIAXone 1 GM/50 ML BAG IVPB (13:27)
[2020-04-24] MEDS: AZITHROMYCIN 500 MG in Normal Saline 250 ML 250 MG IVPB (14:30)
[2020-04-24 15:18] LABS: Anion Gap 7.5 mmol/L (3-11); BUN 8 mg/dL (7-18); CO2 27.5 mmol/L (21.0-32.0); CREATININE 0.93 mg/dL (0.55-1.02); Calcium 8.8 mg/dL (8.5-10.1); Chloride 103 mmol/L (98-107); Glucose 256 mg/dL (74-106); Potassium 4.2 mmol/L (3.5-5.1); Sodium 138 mmol/L (136-145)
--- NOTE | 2020-04-24 16:53 | W.PM.PROGNOT ---
Date of Service Date of service: 04/24/20 Time of Service: 16:53 Assessment and Plan Assessment and plan (1) Acute exacerbation of chronic obstructive pulmonary disease (COPD): Status: Acute Assessment and plan: Due to acute bacterial bronchitis. Continue empiric azithromycin, ceftriaxone. Await sputum culture. COVID-19 negative. Continue scheduled and prn nebs, prednisone, acapella. (2) Acute CHF: Status: Acute Assessment and plan: Redose with lasix. Check echo. Monitor I/O's and daily weights. (3) Hypoxia: Status: Acute Assessment and plan: Multifactorial and likely crhonic. Seems to be stable. Continue to diurese and treat COPD exacerbation. Patient is not on oxygen at baseline and will likely need a new script. COVID-19 negative. (4) Alcohol abuse: Status: Chronic Assessment and plan: Continue CIWA/vitamins, prn Po lorazepam. (5) Diarrhea: Status: Resolved Assessment and plan: Continue probioitics. EGD/colonscopy on 04/05/2020: chemical gastropathy and tubular adenoma. (6) Folliculitis: Status: Acute Assessment and plan: Continue Warm compresses (7) Fungal dermatitis: Status: Acute Assessment and plan: Continue antifungal ointment (8) Chronic back pain: Status: Chronic Assessment and plan: The patient denies LE weakness, saddle anesthesia. However, does report both fecal and urinary incontinence. Await MRI of lumbar spine. (9) Steroid-induced hyperglycemia: Status: Acute Assessment and plan: Check A1C. Change diet to carb consistent. Provide SSI. (10) DVT prophylaxis: Status: Acute Assessment and plan: SC lovenox (11) Discharge planning issues: Status: Acute Assessment and plan: DNR/DNI. Possible discharge home tomorrow. Subjective Subjective Interval history since last seen: Feels better. No headache, feels less nauseated. Breathing is better. Still has a productive cough, still green-yellow sputum. No diarrhea today at all. Exam Narrative Exam Narrative: General: pleasant middle-aged female who looks better today, A&Ox3, on O2, laying flat in bed, does not appear short of breath HEENT: EOMI, MMM Heart: RRR, no m/r/g Lungs: crackles 1/[address] B lungs Abdomen: soft, nontender, nondistended Extremities: trace BLE edema, improving Objective Last Vital Signs Temp 36.2 C L 04/24/20 16:10 Pulse 84 04/24/20 16:10 Resp 22 04/24/20 16:10 BP 110/68 04/24/20 16:10 Pulse Ox 92 04/24/20 16:10 Laboratory Results - last 24 hr 04/23/20 04/24/20 04/24/20 13:25 08:22 08:22 WBC 14.48 H RBC 4.12 Hgb 14.5 Hct 44.3 MCV 107.5 H MCH 35.2 H MCHC 32.7 RDW 13.0 Plt Count 254 MPV 10.4 Immature Gran % 0.5 Neutrophils % 63.6 Lymphocytes % 25.9 Monocytes % 9.5 Eosinophils % 0.2 Basophils % 0.3 Nucleated RBC % 0 Absolute Neutrophils 9.21 H Absolute Lymphocytes 3.75 H Absolute Monocytes 1.38 H Absolute Eosinophils 0.03 Absolute Basophils 0.04 Sodium 141 Potassium 2.6 L* D Chloride 103 Carbon Dioxide 28.8 Anion Gap 9.2 BUN 6 L Creatinine 0.59 Estimated GFR/1.73 m2 >= 60.00 Glucose 108 H Calcium 8.9 Magnesium 2.2 Troponin I < 0.05 04/24/20 15:05 WBC RBC Hgb Hct MCV MCH MCHC RDW Plt Count MPV Immature Gran % Neutrophils % Lymphocytes % Monocytes % Eosinophils % Basophils % Nucleated RBC % Absolute Neutrophils Absolute Lymphocytes Absolute Monocytes Absolute Eosinophils Absolute Basophils Sodium 138 Potassium 4.2 D Chloride 103 Carbon Dioxide 27.5 Anion Gap 7.5 BUN 8 Creatinine 0.93 Estimated GFR/1.73 m2 >= 60.00 Glucose 256 H D Calcium 8.8 Magnesium Troponin I
[2020-04-24] MEDS: Furosemide 20 MG/2 ML VIAL IVP (17:52)
[2020-04-24] MEDS: Normal Saline Flush 10 ML SYR IVP (17:52)
[2020-04-25 03:30] VITALS: BP 120/75; PULSE 82; RESP 18; TEMP 37; O2SAT 93
[2020-04-25 06:05] LABS: Vitamin D 25 Total 9.1 ng/ml (30-100)
--- NOTE | 2020-04-25 08:00 | DI.MRI_ITS ---
EXAM: MR LUMBAR SPINE WO CLINICAL HISTORY: incontinence of stool and urine; chronic back pain. TECHNIQUE: Multiplanar multisequence MRI was performed. COMPARISON: CR LUMBAR SPINE COMPLETE from 12/29/2010 CT ABD PELVIS WO CONTRAST from 01/05/2011 FINDINGS: There is a mild dextroscoliosis. There is mild red marrow reconversion. No compression fractures ar e seen. The conus medullaris appears normal. The aorta is normal in diameter. The L1-2 level shows a endplate osteophytes projecting anteriorly. There is minimal disc bulging and anteriorly projecting osteophytes at L2-3. There are mild facet de generative changes. There is mild concentric disc bulging and small endplate osteophytes at L3-4. There are facet joint degenerative changes and ligamentous hypertrophy but no significant central canal stenosis or neural foraminal narrowing. The L4-5 level shows a left lateral disc protrusion which appears to impinge on the nerve root. Ther e is neural foraminal narrowing on the left. There are facet joint degenerative changes and ligament ous hypertrophy but no significant central canal stenosis. There is minimal bulging of the L5-S1 disc. There are mild facet degenerative changes. There is no central canal stenosis or neural foraminal narrowing. IMPRESSION: left foraminal disc protrusion causing nerve root impingement. DATA REPOSITORY:
--- NOTE | 2020-04-25 08:00 | DI.US_ITS ---
APPROVED REPORT EXAM: Comprehensive 2D, Doppler, and color-flow Echocardiogram Patient Location: In-Patient Room/Bed: 229 Automation Qa Tester: Anjali Shepard RDCS (AE) Indications: CHF Other Information Study Quality: Adequate Conclusion Left Ventricle : The left ventricle is normal size. The left ventricular systolic function is normal. The left ventricular ejection fraction is within the normal range. There is normal left ventricular wall thickness. There is normal LV segmental wall motion. The left ventricular diastolic function is normal. LVEF is 56%. Right Ventricle : The right ventricle is normal size. The right ventricular systolic function is norm al. The RVSP is 24.6 mmHg. Atria : The left atrium size is normal. The right atrium size is normal. Aortic Valve : Aortic valve is trileaflet. There is no aortic valvular stenosis. Trivial aortic regur gitation. Mitral Valve : Mild mitral annular calcification. Mild mitral regurgitation. No evidence of mitral va lve stenosis. Great Vessels : The aortic root is normal in size. The ascending aorta is mildly dilated. Aortic arch is not well visualized. IVC is normal in size and collapses >50% with inspiration. See remainder of study for further details. Wall motion Left Ventricle The left ventricle is normal size. The left ventricular systolic function is normal. The left ventric ular ejection fraction is within the normal range. There is normal left ventricular wall thickness. T here is normal LV segmental wall motion. The left ventricular diastolic function is normal. There is no ventricular septal defect visualized. LVEF is 56%. Right Ventricle The right ventricle is normal size. The right ventricular systolic function is normal. The RVSP is 24 .6 mmHg. Atria The left atrium size is normal. The right atrium size is normal. The interatrial septum is intact wit h no evidence for an atrial septal defect. Aortic Valve Aortic valve is trileaflet. There is no aortic valvular stenosis. Trivial aortic regurgitation. Mitral Valve Mild mitral annular calcification. No evidence of mitral valve stenosis. Mild mitral regurgitation. Tricuspid Valve The tricuspid valve is normal in structure. There is no tricuspid valve stenosis. Trace tricuspid reg urgitation. Pulmonic Valve The pulmonary valve is normal in structure. There is no pulmonic valvular stenosis. Trace pulmonic re gurgitation. Great Vessels The aortic root is normal in size. The ascending aorta is mildly dilated. Aortic arch is not well vis ualized. IVC is normal in size and collapses >50% with inspiration. Pericardium Prominent anterior epicardial fat pad is present. 2D Dimensions IVSD d PLAX 0.96 cm F: 0.6-1.0 LV Vol A2C d MOD 78.1 mL LVPW d PLAX 0.96 cm F: 0.6 - 1.0 LV Vol A4C d MOD 76.3 mL LVID d PLAX 4.96 cm F: 3.8 - 5.2 LA vol/ BSA A2C s A-L 24.4 mL/m2 LVDs 3.55 cm F: 2.2 - 3.5 LA vol/ BSA A4C s A-L 16.1 mL/m2 Ao Root d 2.48 cm F: 2.7 - 3.3 LA Vol/ BSA Biplane s A-L 20.5 mL/m2 RA Area A4C 14.92 cm2 LA Area A4C s MOD 13.43 cm2 RA Vol/ BSA A4C s A-L 21.5 mL/m2 LA Area A2C s MOD 17.15 cm2 Ao Asc Diam d 3.29 cm F: 2.3 - 3.1 LV EF A4C MOD 56.7 % LV EF Teichholz 54.2 % LV EF A2C MOD 56.1 % LVEF (Iyer's) 54.99 % F: 54 - 74 LV EF Biplane MOD 55.0 % LV Volume 59.86 mL F: 46 - 106 SV 43.30 mL LV Volume Index 31.17 mL/m2 F: 29 - 61 SV Index 22.53 mL/m2 LV Vol Biplane MOD 78.7 mL FS 28.10 % M-Mode TAPSE 2.37 cm (M/F) >1.7 LV Diastology MV E' medial 0.073 (>0.07 m/s) E/A Ratio 1.1 LV E/e MED 11.55 (<14) MV E Vmax 0.85 (0.4-1.3 m/s) MV E' lateral 0.103 (>0.1 m/s) MV A Vmax 0.75 (0.4-1.3 m/s) LV E/e LAT 8.25 (<14) MV E/A Ratio 1.10 MV E/E' medial 11.58 MV E/E' lateral 8.27 Aortic Valve LVOT Area 3.07 cm2 AoV Area Vmax 2.36 cm2 LVOT Vmax 1.19 m/s AoV Area/ BSA (Vmax) 1.23 cm2/m2 LVOT Mean Jose Carlos. 0.80 m/s MK Mean Jose Carlos. 2.24 cm2 LVOT Peak Grad 5.7 mmHg MK Mean Jose Carlos. Index 1.17 cm2/m2 LVOT Mean Grad 3.0 mmHg LVOT VTI 0.234 m LVOT Diam s 1.95 cm AoV Vmax 1.54 m/s Velocity Ratio 0.77 AoV Mean Jose Carlos. 1.09 m/s AoV Peak Grad 9.5 mmHg LVOT SV 71.87 mL AoV Mean Grad 5.3 mmHg AoV VTI 0.295 m AoV Area VTI 2.44 cm2 AoV Area/ BSA (VTI) 1.27 cm/m2 Mitral Valve MV DT 191 (160-240 msec) MV PHT 55 msec MV Area PHT 3.98 cm2 Pulmonary Valve PV Vmax 0.96 (0.5-1.5 m/s) RVOT Peak Gr. 1.70 mmHg PV Peak Grad 3.7 mmHg RVOT Mean Gr. 0.90 mmHg PV Mean Grad 2.0 mmHg RVOT VTI 0.132 m PV VTI 0.176 m RVOT Vmax 0.65 m/s Tricuspid Valve TR Peak Grad 21.5 mmHg TR Vmax 2.32 m/s RA Pressure 3.00 mmHg RVSP (TR) 24.6 mmHg
[2020-04-25] MEDS: Enoxaparin 40 MG/0.4 ML SYR SC (08:01)
[2020-04-25] MEDS: guaiFENesin 600 MG TABCR 1200 MG PO (08:02)
[2020-04-25] MEDS: Famotidine 20 MG TAB PO (08:02)
[2020-04-25] MEDS: Thiamine 100 MG TAB PO (08:02)
[2020-04-25] MEDS: Venlafaxine 37.5 MG CAPCR 75 MG PO (08:03)
[2020-04-25] MEDS: Folic Acid 1 MG TAB PO (08:03)
[2020-04-25] MEDS: Acetaminophen 325 MG TAB 650 MG PO ×2 (08:03→14:01)
[2020-04-25] MEDS: predniSONE 20 MG TAB 40 MG PO (08:03)
[2020-04-25] MEDS: Multivitamin TAB 1 TAB PO (08:03)
[2020-04-25 08:07] LABS: Abs Immature Grans 0.07 10^3/uL (0.0-0.06); Absolute Monocyte Count 1.74 10^3/uL (0.1-0.8); Basophils % 0.3; Eosinophils % 0.5; HCT 47.8 % (36.0-46.0); HGB 15.7 g/dL (11.2-15.7); Immature Grans % 0.4; Lymphocytes % 24.6; MCH 35.6 pg (27.0-33.0); MCHC 32.8 % (32.0-36.0); MCV 108.4 fL (80-95); MPV 10.7 fL (8.0-11.0); Monocytes % 9.9; Neutrophils % 64.3; Nucleated RBC 0 %; Platelet Count 286 10^3/uL (130-400); RBC 4.41 10^6/uL (3.93-5.22); RDW 12.9 % (11.7-14.6); RDW-SD 51.5 fL; WBC 17.53 10^3/uL (4.4-10.8)
[2020-04-25] MEDS: Budesonide/Formoterol 160/4.5 6 GM 60 PUFF INH IH (08:11)
[2020-04-25 08:12] LABS: Absolute Basophil Count 0.05 10^3/uL (0.0-0.2); Absolute Eosinophil Count 0.09 10^3/uL (0.0-0.7); Absolute Lymphocyte Count 4.31 10^3/uL (1.2-3.4); Absolute Neutrophil Count 11.27 10^3/uL (1.2-6.7)
[2020-04-25 08:23] VITALS: BP 118/82; PULSE 85; RESP 19; TEMP 36.7; O2SAT 92
[2020-04-25 08:29] LABS: Hemoglobin A1C 5.7 % (<5.7)
[2020-04-25 08:31] LABS: Diff Comment Agrees w/ Instrument; Macrocytosis 3+
--- NOTE | 2020-04-25 09:20 | PDOC.CMDIS ---
LACE Index Scoring Tool - Questions: Length of Stay (in days): 2 Acuity (Admit via E.D.?): Yes Comorbidities: Chronic Pulmonary Disease E.D. Visits: 1 - Answers: Total Score: 8 Risk of Readmission: Low Risk Care Management Discharge Reason for Hospitalization: Asthma exacerbation in COPD Discharge Plan: Karen will be discharged home with new home O2 and a nebulizer, per MD and coordinated by RT. She will follow up with her PCP and discharge plan of care and transport with her significant other. Patient/Family Education Needs: Review discharge instructions, discuss Ask Me Three. Services Needed at Discharge: DME Agency (O2, nebulizer)
[2020-04-25 10:01] LABS: Anion Gap 7.8 mmol/L (3-11); BUN 10 mg/dL (7-18); CO2 30.2 mmol/L (21.0-32.0); CREATININE 0.61 mg/dL (0.55-1.02); Calcium 9.4 mg/dL (8.5-10.1); Chloride 99 mmol/L (98-107); Glucose 83 mg/dL (74-106); Magnesium 2.1 mg/dL (1.8-2.4); Potassium 4.2 mmol/L (3.5-5.1); Sodium 137 mmol/L (136-145); Vitamin B12 714 pg/mL (193-986)
[2020-04-25 10:30] VITALS: PULSE 102; PULSE 83; PULSE 86; PULSE 88; RESP 24; RESP 32; O2SAT 86; O2SAT 92; O2SAT 93; O2SAT 95
[2020-04-25] MEDS: cefTRIAXone 1 GM/50 ML BAG IVPB (12:40)
[2020-04-25] MEDS: Insulin Aspart 300 UNITS/3 ML PEN SC (12:40)
[2020-04-25 12:49] VITALS: PULSE 82; RESP 2; O2SAT 95
[2020-04-25] MEDS: Albuterol/Ipratropium 3 ML UPD VIAL UPD (12:49)
[2020-04-25 12:58] VITALS: BP 108/67; PULSE 81; RESP 18; TEMP 37.4; O2SAT 98
[2020-04-25 13:01] VITALS: PULSE 95; RESP 16; RESP 8; O2SAT 95
[2020-04-25] MEDS: Normal Saline Flush 10 ML SYR IVP (14:01)
[2020-04-25] MEDS: AZITHROMYCIN 500 MG in Normal Saline 250 ML 250 MG IVPB (14:01)
[2020-04-25] MEDS: LORazepam 1 MG TAB PO/SL (14:31)
--- NOTE | 2020-04-25 15:02 | W.PM.DS.N ---
Date of service: 04/25/20 Time of Service: 15:03 DS: Diagnosis Discharge Diagnosis (1) Acute exacerbation of chronic obstructive pulmonary disease (COPD): Status: Acute (2) Acute bacterial bronchitis: Status: Acute (3) Acute CHF: Status: Resolved (4) Hypoxia: Status: Chronic (5) Pulmonary hypertension: Status: Acute (6) Lumbar nerve root impingement: Status: Acute (7) Alcohol abuse: Status: Chronic (8) Diarrhea: Status: Resolved (9) Folliculitis: Status: Acute (10) Fungal dermatitis: Status: Acute (11) Steroid-induced hyperglycemia: Status: Resolved Asessment and Plan: A1C 5.7 (12) Snoring: Status: Chronic (13) Hypokalemia: Status: Resolved (14) Chemical gastritis: Status: Chronic (15) Tobacco abuse: Status: Chronic (16) COVID-19 ruled out by laboratory testing: Status: Ruled-out Discharge Plan Disposition Patient Disposition: HOME Condition: Stable Discharge Details Reason For Visit: COPD EXACERBATION/RULE OUT COVID Admit Date/Time: 04/23/20 16:00 Admit Provider: Sam Hannon Attending Provider: Yue Sánchez Primary Care Provider: Hawk Miller [facility] Hospital Course: Ms Ramos is a 60 year old female with PMHx of COPD (previously, not requiring oxygen), as well as history of chronic back pain, chemical gastritis per EGD within the last month, tobacco and alcohol abuse, who was a patient on [facility] hospitalist service from 04/22/2020 until 04/25/2020 for multifactorial hypoxia, due to both acute exacerbation of COPD with acute bacterial bronchitis component and due to acute fluid overload/HFpEF. The patient was treatd with empiric antibiotics (azithromycin, ceftriaxone), prednisone, nebulizer treatments, diuretics, and markedly improved. She would benefit from having a nebulizer machine at home. Her ambulatory pulse ox at the time of discharge demonstrates O2 sats >90% at rest on room air, but she does desaturate to 87% with activity, and requires 1 L of O2 to saturate 92%. COVID-19 was ruled out. She is improving and will need to complete 2 more days of antibiotics and steroids on discharge. As far as her CHF, she had preserved EF and no evidence of diastolic dysfunction, but she has evidence of mild pulmonary hypertension. She does snore, and we recommend a sleep study on discharge (referral is being sent). She did benefit from diuresis while she was here and is going home with 2 more days of PO lasix. We discussed her getting a scale as an outpatient to weigh herself daily - PCP will need to follow up. The patient did report to us intermittent nausea - she had an EGD 3 weeks ago with chemical gastritis. We are recommending a gastritis diet and a PPI on discharge. She has a history of chronic diarrhea, worse since her colonoscopy. We are recommending probiotics. Because the patient endorsed incontinence of both urine and stool as well as back pain, she did undergo an MRI of lumbar spine to ensure she did not have cord impingement. She was found to have an L4-L5 disc protrusion with nerve root impingement on the left, for which a referral is being sent to neurosurgery. She is not ready to quit drinking and smoking, but was advised to. The patient is medically stable for discharge home today. Care for patient as well as completion of her discharge summary on day of discharge took 45 minutes. Home Meds and New Rx's Prescriptions: New acetaminophen [Tylenol] 325 mg Tablet 650 mg PO Q4H PRN PRNQty: 0 RF: 0 ipratropium-albuterol 0.5 mg-3 mg(2.5 mg base)/3 mL Solution For Nebulization 3 ml UPD Q4H PRN PRN (Reason: shortness of breath or wheezing) Qty: 180 RF: 0 multivitamin [Multiple Vitamins] Tablet 1 tab PO DAILY Qty: 30 RF: 0 prednisone 20 mg Tablet 40 mg PO DAILY Qty: 4 RF: 0 thiamine mononitrate (vit B1) [Vitamin B-1 (mononitrate)] 100 mg Tablet 100 mg PO DAILY Qty: 30 RF: 0 pantoprazole [Protonix] 40 mg tablet,delayed release (DR/EC) 40 mg PO DAILY Qty: 30 RF: 0 Lactobacillus acidophilus Capsule 1,000 mmu cells PO DAILY Qty: 30 RF: 0 azithromycin 250 mg tablet 250 mg PO DAILY Qty: 2 RF: 0 cefuroxime axetil 250 mg tablet 250 mg PO BID Qty: 4 RF: 0 nystatin 100,000 unit/gram powder 1 applic topical TID Qty: 30 RF: 0 furosemide 20 mg tablet 20 mg PO DAILY Qty: 2 RF: 0 Continued venlafaxine 75 mg capsule,extended release 24hr 75 mg PO DAILY RF: 0 Incruse Ellipta 62.5 mcg/actuation blister with device 1 inh IH DAILY RF: 0 albuterol sulfate [ProAir HFA] 8.5 GM HFA aerosol inhaler 2 puff Inhalation Q6H PRN RF: 0 Mucinex 1,200 MG tablet extended release 12hr 1,200 mg PO DAILY RF: 0 Advair HFA 60 PUFF/INH HFA aerosol inhaler 1 puff PO DAILY RF: 0 Discontinued naproxen sodium [Aleve] 220 MG tablet 440 mg PO BID RF: 0 famotidine [Pepcid] 20 mg tablet 20 mg PO DAILY Qty: 30 RF: 2 Discharge Instructions Instructions: Cefuroxime (By mouth), Prednisone (By mouth), Azithromycin (By mouth), Pantoprazole (By mouth), Heart Failure (DC), Snoring (DC), How to Stop Smoking (DC), Diet for Stomach Ulcers and Gastritis (ED), Acute Bronchitis (ED), COPD (Chronic Obstructive Pulmonary Disease) (DC), Abuse of Alcohol (DC) Additional Instructions: Return to the hospital with any fever, bleeding, chest pain, or shortness of breath. Do not smoke while wearing oxygen. Wear 1 L of oxygen with activity. You must stop smoking and decrease use of alcohol! Purchase a scale and weigh yourself every day. Keep a log of your weights and bring it to your PCP for follow up. Follow up with your PCP within 1 week. Follow up with neurosurgery. Follow up for your sleep study - both referrals are sent. Referrals: NEUROSURGERY,[facility] [place] [OTHER] - (L4-5 left lateral disc protrusion with nerve root impingement.) [facility] CLINIC,[facility] [OTHER] - Hawk Miller MD [Primary Care Provider] - Activity:: Activity as Tolerated Equipment/Supplies:: 1 L w/ act; nebulizer Diet:: As Tolerated Discharge Orders Discharge Orders: Discharge Order (Routine); Ordered 04/25/20 Ordered By: Yue Sánchez DS: Summary Status at Discharge Functional status at discharge: independent ambulation Overall status at discharge: patient is back to baseline Mental Status: mental status grossly normal Speech and Movement: speech and movement normal Mood: congruent mood Affect: normal affect Exam Narrative Exam Narrative: General: pleasant middle-aged female, A&Ox3, on O2, looks better; wearing civilian clothes HEENT: EOMI, MMM Heart: RRR, no m/r/g Lungs: faint rhonchi today and very few crackles heard Abdomen: soft, nontender, nondistended Extremities: trace BLE edema, improving Psych Mental Status: mental status grossly normal Speech and Movement: speech and movement normal Mood: congruent mood Affect: normal affect DS: Data Vitals/I&O Vitals and I&O: Vital Signs Temperature 37.4 C 04/25/20 12:58 Temperature Source Temporal Artery Scan 04/25/20 12:58 Pulse 95 H 04/25/20 13:01 Pulse Rhythm Regular 04/25/20 10:13 Pulse 87 04/23/20 16:01 Respiratory Rate 16 04/25/20 13:01 Respiratory Effort 04/25/20 10:13 Respiratory Depth Normal 04/25/20 10:13 Respiratory Pattern Normal 04/25/20 10:13 Blood Pressure 108/67 04/25/20 12:58 Blood Pressure Mean 90 04/23/20 16:01 Blood Pressure Position Supine 04/23/20 13:26 Pulse Oximetry 95 04/25/20 13:01 Oxygen Delivery Method Nasal Cannula 04/25/20 12:58 Oxygen Flow Rate 1 04/25/20 12:58 Pain Level 8 04/25/20 14:01 Comment 04/23/20 20:10 Intake & Output 04/24/20 04/25/20 04/25/20 23:59 11:59 23:59 Intake Total 650 / 659.85 250 / 730 480 / 730 Output Total 900 / 900 950 / 950 Balance -250 / -240.15 -700 / -220 480 / -220 Weight 82.5 kg Intake: IV 650 / 659.85 Oral 250 / 730 480 / 730 Output: Urine 900 / 900 950 / 950 Other: Urine Color Yellow Yellow Urine Appearance Clear Clear Urine Odor None Normal Stool Size Small Stool Characteristics Soft Brown Voiding Methods Toilet Toilet Data Completed and Pending Completed studies during hospitalization [Text1]: CXR 04/22/2020: No acute pulmonary findings. CTA chest: No acute findings. CXR 04/23/2020: 1. Mild vascular congestion. 2. Lungs are well aerated without a focal area of consolidation. Echo 04/25/2020: Left Ventricle : The left ventricle is normal size. The left ventricular systolic function is normal. The left ventricular ejection fraction is within the normal range. There is normal left ventricular wall thickness. There is normal LV segmental wall motion. The left ventricular diastolic function is normal. LVEF is 56%. Right Ventricle : The right ventricle is normal size. The right ventricular systolic function is normal. The RVSP is 24.6 mmHg. Atria : The left atrium size is normal. The right atrium size is normal. Aortic Valve : Aortic valve is trileaflet. There is no aortic valvular stenosis. Trivial aortic regurgitation. Mitral Valve : Mild mitral annular calcification. Mild mitral regurgitation. No evidence of mitral valve stenosis. Great Vessels : The aortic root is normal in size. The ascending aorta is mildly dilated. Aortic arch is not well visualized. IVC is normal in size and collapses >50% with inspiration. MRI LS spine: left foraminal disc protrusion causing nerve root impingement (L4-L5) Labs on day of discharge: Labs from last 24 hours 04/25/20 04/25/20 04/25/20 08:25 07:15 07:15 WBC 17.53 H RBC 4.41 Hgb 15.7 Hct 47.8 H MCV 108.4 H MCH 35.6 H MCHC 32.8 RDW 12.9 Plt Count 286 MPV 10.7 Immature Gran % 0.4 Neutrophils % 64.3 Lymphocytes % 24.6 Monocytes % 9.9 Eosinophils % 0.5 Basophils % 0.3 Nucleated RBC % 0 Absolute Neutrophils 11.27 H Absolute Lymphocytes 4.31 H Absolute Monocytes 1.74 H Absolute Eosinophils 0.09 Absolute Basophils 0.05 RBC Morphology See below Macrocytosis 3+ Sodium Potassium Chloride Carbon Dioxide Anion Gap BUN Creatinine Estimated GFR/1.73 m2 Glucose Hemoglobin A1c 5.7 Calcium Magnesium Vitamin B12 25-OH Vitamin D Total Folate Stool Campylobacter PCR Pending Stool Salmonella PCR Pending Stool Shigella PCR Pending Shiga Toxin (PCR) Pending 04/25/20 04/25/20 04/24/20 07:15 05:35 15:05 WBC RBC Hgb Hct MCV MCH MCHC RDW Plt Count MPV Immature Gran % Neutrophils % Lymphocytes % Monocytes % Eosinophils % Basophils % Nucleated RBC % Absolute Neutrophils Absolute Lymphocytes Absolute Monocytes Absolute Eosinophils Absolute Basophils RBC Morphology Macrocytosis Sodium 137 138 Potassium 4.2 4.2 D Chloride 99 103 Carbon Dioxide 30.2 27.5 Anion Gap 7.8 7.5 BUN 10 8 Creatinine 0.61 0.93 Estimated GFR/1.73 m2 >= 60.00 >= 60.00 Glucose 83 D 256 H D Hemoglobin A1c Calcium 9.4 8.8 Magnesium 2.1 Vitamin B12 714 Cancelled 25-OH Vitamin D Total Folate 12.0 Cancelled Stool Campylobacter PCR Stool Salmonella PCR Stool Shigella PCR Shiga Toxin (PCR) 04/24/20 08:22 WBC RBC Hgb Hct MCV MCH MCHC RDW Plt Count MPV Immature Gran % Neutrophils % Lymphocytes % Monocytes % Eosinophils % Basophils % Nucleated RBC % Absolute Neutrophils Absolute Lymphocytes Absolute Monocytes Absolute Eosinophils Absolute Basophils RBC Morphology Macrocytosis Sodium Potassium Chloride Carbon Dioxide Anion Gap BUN Creatinine Estimated GFR/1.73 m2 Glucose Hemoglobin A1c Calcium Magnesium Vitamin B12 25-OH Vitamin D Total 9.1 L Folate Stool Campylobacter PCR Stool Salmonella PCR Stool Shigella PCR Shiga Toxin (PCR) Preliminary micro results at discharge 04/23/20 16:45 Sputum Culture - Preliminary Sputum - Expectorated Normal Marilyn 04/23/20 13:00 Sputum Culture - Preliminary Sputum Normal Marilyn 04/22/20 15:05 Blood Culture - Preliminary Blood NO GROWTH 48 HOURS 04/22/20 15:35 Blood Culture - Preliminary Blood NO GROWTH 48 HOURS PFS Medical History Adenomatous colon polyp Alcohol abuse COPD (chronic obstructive pulmonary disease) Depression H/O recurrent urinary tract infection Lower back pain Smoker Varicose veins of both lower extremities Surgical History History of shoulder surgery Hx of cataract surgery bilat. Hx of tonsillectomy Tubal ligation status Family History Other Cancer Diabetes Heart disease Social History Smoking/Tobacco Use Status: Current every day Tobacco Type: cigarettes Alcohol Intake: current Alcohol Intake frequency: 0-2 drinks per day Alcohol type: hard liquor Drug use: Never Substance use type: does not use Do you feel safe at home: Yes Do you feel safe in your relationship?: Yes
[2020-05-02 13:20] LABS: Campylobacter PCR Negative (Negative); Salmonella PCR Negative (Negative); Shiga Toxin PCR Negative (Negative); Shigella/Enteroinvasive Ecoli Negative (Negative)
== END 2020-04-25 16:38 | disposition home or self-care (01) | DRG 202 ==
LOC: ER 21:33 → ICU 21:37 → MS 04-25 09:02
PROVIDERS: Admitting Provider Family Medicine; Emergency Provider Student in an Organized Health Care Education/Training Program; PCP Internal Medicine; Visit Provider Internal Medicine
DX: J20.8 Acute bronchitis due to other specified organisms (principal); J44.0 Chronic obstructive pulmonary disease with (acute) lower respiratory infection; J44.1 Chronic obstructive pulmonary disease with (acute) exacerbation; Z03.818 Encounter for observation for suspected exposure to other biological agents ruled out; R09.02 Hypoxemia; F10.10 Alcohol abuse, uncomplicated; F17.210 Nicotine dependence, cigarettes, uncomplicated; M54.5 Low back pain; I83.93 Asymptomatic varicose veins of bilateral lower extremities; I50.9 Heart failure, unspecified; L73.9 Follicular disorder, unspecified; B37.2 Candidiasis of skin and nail; G89.29 Other chronic pain; I27.20 Pulmonary hypertension, unspecified; R19.7 Diarrhea, unspecified; R06.83 Snoring; R73.9 Hyperglycemia, unspecified; T38.0X5A Adverse effect of glucocorticoids and synthetic analogues, initial encounter; E87.6 Hypokalemia; K29.60 Other gastritis without bleeding; M51.16 Intervertebral disc disorders with radiculopathy, lumbar region
CPT/HCPCS: 36415; 71275; 80048; 80053; 82306; 84145; 87040; 87505; 90686; 93005; 94618; 94640; 96365; 96366; 96368; 96375; 99222; 99232; 99233; 99239; 99285; J1650; U0003; 71045; 72148; 82607; 82746; 83036; 83605; 83735; 83880; 84484; 85025; 87070; 87205; 87324; 93010; 93306; 94667; 99219; G0378; J0456; J0696; J1941; J2930; J3480; J3490; J7512; J7613; J7620

== ENCOUNTER 2020-04-22 18:02 | Outpatient (REF) | payer OTHER, SELFPAY | END 2020-04-22 18:22 | LOC: NCHCN 18:02 | PROVIDERS: PCP Internal Medicine; Visit Provider Nurse Practitioner Family | DX: Z20.828 Contact with and (suspected) exposure to other viral communicable diseases (principal) | CPT/HCPCS: U0003 ==

== ENCOUNTER 2020-05-16 08:28 | Outpatient (REF) | payer OTHER, SELFPAY ==
[2020-05-16 20:51] LABS: Abs Immature Grans 0.05 10^3/uL (0.0-0.06); Absolute Basophil Count 0.08 10^3/uL (0.0-0.2); Absolute Eosinophil Count 0.42 10^3/uL (0.0-0.7); Absolute Lymphocyte Count 2.84 10^3/uL (1.2-3.4); Absolute Monocyte Count 1.28 10^3/uL (0.1-0.8); Absolute Neutrophil Count 9.43 10^3/uL (1.2-6.7); Basophils % 0.6; HCT 48.3 % (36.0-46.0); HGB 16.1 g/dL (11.2-15.7); Immature Grans % 0.4; Lymphocytes % 20.1; MCH 35.7 pg (27.0-33.0); MCHC 33.3 % (32.0-36.0); MCV 107.1 fL (80-95); MPV 10.8 fL (8.0-11.0); Monocytes % 9.1; Neutrophils % 66.8; Nucleated RBC 0 %; Platelet Count 298 10^3/uL (130-400); RBC 4.51 10^6/uL (3.93-5.22); RDW 12.6 % (11.7-14.6); WBC 14.12 10^3/uL (4.4-10.8)
[2020-05-16 21:02] LABS: Iron 122 ug/dL (50-170); Total Iron Binding Capacity 323 ug/dL (250-450); Transferrin Sat 38 % (15-50)
[2020-05-16 21:16] LABS: Anion Gap 5.9 mmol/L (3-11); BUN 6 mg/dL (7-18); CO2 36.1 mmol/L (21.0-32.0); CREATININE 0.68 mg/dL (0.55-1.02); Calcium 9.2 mg/dL (8.5-10.1); Chloride 102 mmol/L (98-107); Ferritin 211 ng/mL (8-252); Glucose 147 mg/dL (74-106); Potassium 3.7 mmol/L (3.5-5.1); Sodium 144 mmol/L (136-145); TSH (W/Ref FT4) 2.16 uIU/mL (0.36-3.74)
[2020-05-16 21:17] LABS: Diff Comment RBC Morph Reviewed; Macrocytosis 1+
[2020-05-16 22:05] LABS: NT-proBNP 77 pg/mL (<300)
[2020-05-18 10:40] LABS: Transferrin 254 mg/dL (201-352)
[2020-05-20 11:15] LABS: Thiamine (Vitamin B1), WB 234 nmol/L (70-180)
== END 2020-05-16 08:48 ==
LOC: NCHCN 08:28
PROVIDERS: PCP Internal Medicine; Visit Provider Family Medicine
DX: I50.9 Heart failure, unspecified (principal); I27.20 Pulmonary hypertension, unspecified; D75.1 Secondary polycythemia; D75.89 Other specified diseases of blood and blood-forming organs; E55.9 Vitamin D deficiency, unspecified; F10.10 Alcohol abuse, uncomplicated; G47.34 Idiopathic sleep related nonobstructive alveolar hypoventilation; J44.9 Chronic obstructive pulmonary disease, unspecified
CPT/HCPCS: 80048; 82728; 83540; 83550; 83880; 84425; 84443; 84466; 85025

== ENCOUNTER 2020-05-24 12:26 | Outpatient (REF) | payer OTHER, SELFPAY ==
--- NOTE | 2020-05-24 10:45 | PAPFT_PTH ---
PATIENT: Karen Ramos LOC: [facility] U#:[id number] AGE/SX: 60/F ROOM: RE05/24/[address]: Edgardo Licea MD : 1960 BED: DIS: 05/24/2020 SPEC #: [id number] RECD: 05/24/20 12:56 STATUS: JEFF REQ #: [id number] CECY: 05/24/20 10:[address]: Edgardo Licea DEPT: [facility] Cytology RECD BY: Sarah Ralph ENTERED: 05/24/20 12:57 SP TYPE: PAPFT OTHR DR: Hawk Miller Tissues: 1 - CX/ENDOCX FOR PAP SMEARS Procedures: PAP THIN PREP/UVM Screening HPV DNA PROBE Comments: [id number] ([id number] [facility])
== END 2020-05-24 12:46 ==
LOC: LBN 12:26
PROVIDERS: PCP Internal Medicine; Visit Provider Obstetrics & Gynecology
DX: Z12.4 Encounter for screening for malignant neoplasm of cervix (principal); Z11.51 Encounter for screening for human papillomavirus (HPV)
CPT/HCPCS: 88142; 87624

== ENCOUNTER 2020-06-10 03:13 | Outpatient (CLI) | payer OTHER, SELFPAY ==
--- NOTE | 2020-06-10 09:00 | DI.MAMMO_ITS ---
EXAM: MG MAMMO SCREENING CLINICAL HISTORY: SCREENING,Z12.39 TECHNIQUE: Bilateral full field digital CC and MLO mammographic images were obtained with 3D tomosyn thesis and utilizing computer aided detection (CAD). COMPARISON: Available for comparison. FINDINGS: Masses/Architectural Distortion: None seen. Microcalcifications: No suspicious pleomorphic-type are seen. Skin Thickening/Nipple Retraction: None. IMPRESSION: 1. No significant interval change with no specific features of malignancy noted. 2. Unless there is more urgent need, screening mammography is recommended, as per [place] [employer] guidelines. BI-RADS Category 1 - Negative Breast Density - Category B - Scattered areas of fibroglandular density A negative radiographic report should not delay biopsy if a dominant or clinically suspicious mass is present. Up to ten percent of cancers are not identified on mammography. A negative report may reinforce clinical impression. Adenosis and dense breasts may obscure an underlying neoplasm. False positive reports average 6 to 10%. Patient will receive a letter notifying them of these results.
== END 2020-06-10 03:33 ==
PROVIDERS: PCP Internal Medicine; Visit Provider Nurse Practitioner Family
DX: Z12.31 Encounter for screening mammogram for malignant neoplasm of breast (principal)
CPT/HCPCS: 77063; 77067

== ENCOUNTER 2020-08-03 15:28 | Outpatient (REF) | payer OTHER, SELFPAY ==
[2020-08-03 13:40] LABS: Ferritin 204 ng/mL (8-252)
== END 2020-08-03 15:48 ==
LOC: NCHCN 15:28
PROVIDERS: PCP Internal Medicine; Visit Provider Internal Medicine
DX: M25.561 Pain in right knee (principal)
CPT/HCPCS: 82728

== ENCOUNTER 2021-05-16 10:38 | Outpatient (REF) | payer OTHER, SELFPAY ==
[2021-05-16 14:01] LABS: HCT 51.2 % (36.0-46.0); HGB 17.1 g/dL (11.2-15.7); MCH 35.6 pg (27.0-33.0); MCHC 33.4 % (32.0-36.0); MCV 106.4 fL (80-95); MPV 11.7 fL (8.0-11.0); Platelet Count 193 10^3/uL (130-400); RBC 4.81 10^6/uL (3.93-5.22); RDW 12.6 % (11.7-14.6); RDW-SD 50.6 fL; WBC 12.67 10^3/uL (4.4-10.8)
[2021-05-16 14:33] LABS: Anion Gap 10.9 mmol/L (3-11); BUN 10 mg/dL (7-18); CO2 27.1 mmol/L (21.0-32.0); CREATININE 0.7 mg/dL (0.55-1.02); Calcium 9.4 mg/dL (8.5-10.1); Chloride 102 mmol/L (98-107); Glucose 143 mg/dL (74-106); Potassium 4.2 mmol/L (3.5-5.1); Sodium 140 mmol/L (136-145)
[2021-05-16 14:50] LABS: Hemoglobin A1C 6.1 % (<5.7)
== END 2021-05-16 10:39 | disposition home or self-care (01) ==
LOC: NCHCN 10:38
PROVIDERS: PCP Internal Medicine; Visit Provider Internal Medicine
DX: R73.09 Other abnormal glucose (principal); J44.9 Chronic obstructive pulmonary disease, unspecified; R91.8 Other nonspecific abnormal finding of lung field; D75.1 Secondary polycythemia
CPT/HCPCS: 80048; 85027; 83036

== ENCOUNTER 2021-11-13 13:44 | Outpatient (REF) | payer OTHER, SELFPAY ==
[2021-11-13 16:41] LABS: Abs Immature Grans 0.04 10^3/uL (0.0-0.06); Absolute Eosinophil Count 0.41 10^3/uL (0.0-0.7); Absolute Lymphocyte Count 2.97 10^3/uL (1.2-3.4); Absolute Monocyte Count 1.09 10^3/uL (0.1-0.8); Absolute Neutrophil Count 7.85 10^3/uL (1.2-6.7); Basophils % 0.6; Eosinophils % 3.3; HCT 49.1 % (36.0-46.0); HGB 16.3 g/dL (11.2-15.7); Immature Grans % 0.3; Lymphocytes % 23.9; MCH 35.1 pg (27.0-33.0); MCHC 33.2 % (32.0-36.0); MCV 105.8 fL (80-95); MPV 11.7 fL (8.0-11.0); Monocytes % 8.8; Neutrophils % 63.1; Platelet Count 216 10^3/uL (130-400); RBC 4.64 10^6/uL (3.93-5.22); RDW 13.6 % (11.7-14.6); RDW-SD 53.8 fL; WBC 12.44 10^3/uL (4.4-10.8)
[2021-11-13 16:42] LABS: Absolute Basophil Count 0.07 10^3/uL (0.0-0.2)
[2021-11-13 16:50] LABS: ALT 56 U/L (14-59); AST 54 U/L (15-37); Albumin 3.9 g/dL (3.4-5.0); Alkaline Phosphatase 116 U/L (46-116); BUN 9 mg/dL (7-18); Bilirubin, Total 0.9 mg/dL (0.2-1.0); CREATININE 0.6 mg/dL (0.55-1.02); Calcium 9.1 mg/dL (8.5-10.1); Chloride 102 mmol/L (98-107); Glucose 135 mg/dL (74-106); Potassium 3.8 mmol/L (3.5-5.1); Sodium 139 mmol/L (136-145); Total Protein 7.7 g/dL (6.4-8.2)
[2021-11-13 17:06] LABS: Diff Comment Agrees w/ Instrument; Macrocytosis 1+
== END 2021-11-13 13:45 | disposition home or self-care (01) ==
LOC: NCHCN 13:44
PROVIDERS: PCP Internal Medicine; Visit Provider Family Medicine
DX: R73.03 Prediabetes (principal); D75.1 Secondary polycythemia; F10.21 Alcohol dependence, in remission; J44.9 Chronic obstructive pulmonary disease, unspecified
CPT/HCPCS: 80053; 85025

== ENCOUNTER 2022-06-26 14:12 | Outpatient (REF) | payer OTHER, SELFPAY ==
[2022-06-26 14:45] LABS: HCT 48.8 % (36.0-46.0); HGB 15.8 g/dL (11.2-15.7); MCH 34.3 pg (27.0-33.0); MCHC 32.4 % (32.0-36.0); MCV 106 fL (80-95); MPV 10.9 fL (8.0-11.0); Platelet Count 233 10^3/uL (130-400); RBC 4.61 10^6/uL (3.93-5.22); RDW 12.8 % (11.7-14.6); RDW-SD 50.4 fL; WBC 12.85 10^3/uL (4.4-10.8)
[2022-06-26 15:20] LABS: ALT 54 U/L (14-59); AST 61 U/L (15-37); Albumin 3.9 g/dL (3.4-5.0); Alkaline Phosphatase 129 U/L (46-116); Anion Gap 7.4 mmol/L (3-11); BUN 7 mg/dL (7-18); Bilirubin, Total 1.4 mg/dL (0.2-1.0); CO2 31.6 mmol/L (21.0-32.0); CREATININE 0.7 mg/dL (0.55-1.02); Chloride 98 mmol/L (98-107); Estimated GFR 98.34 (mL/min/1.73m2); Glucose 133 mg/dL (74-106); NT-proBNP 93 pg/mL (<300); Potassium 3.9 mmol/L (3.5-5.1); Sodium 137 mmol/L (136-145); Total Protein 8.1 g/dL (6.4-8.2)
== END 2022-06-26 14:13 | disposition home or self-care (01) ==
LOC: NCHCN 14:12
PROVIDERS: PCP Internal Medicine; Visit Provider Family Medicine
DX: R73.03 Prediabetes (principal); J44.9 Chronic obstructive pulmonary disease, unspecified; R60.9 Edema, unspecified; G47.33 Obstructive sleep apnea (adult) (pediatric)
CPT/HCPCS: 80053; 85027; 83880; 84443

== ENCOUNTER 2022-08-21 02:04 | Outpatient (CLI) | payer OTHER, SELFPAY ==
--- NOTE | 2022-08-21 07:49 | DI.US_ITS ---
APPROVED REPORT EXAM: Comprehensive 2D, Doppler, and color-flow Echocardiogram Patient Location: Out-Patient Bulk Sealer Operator: Anjali Shepard RDCS (AE) Indications: Edema, Orthopnea, CHF Other Information Study Quality: Adequate Conclusion Normal left ventricular wall thickness and chamber size. Estimated ejection fraction is 55 to 60%. Wall motion is normal Normal right ventricular size and systolic function Both atria are normal in size There are no structural valvular abnormalities Mild mitral regurgitation Trace to mild tricuspid regurgitation. Estimated right ventricular systolic pressure is 41 mmHg Wall motion Left Ventricle The left ventricle is normal size. The left ventricular systolic function is normal. The left ventric ular ejection fraction is within the normal range. There is normal left ventricular wall thickness. T here is normal LV segmental wall motion. There is no ventricular septal defect visualized. LVEF is 59 %. Right Ventricle The right ventricle is normal size. The right ventricular systolic function is normal. The RVSP is 41 .1mmHg. Atria The left atrium size is normal. The right atrium size is normal. The interatrial septum is intact wit h no evidence for an atrial septal defect. Aortic Valve The aortic valve is normal in structure. Aortic valve is trileaflet. There is no aortic valvular sten osis. No aortic regurgitation is present. Mitral Valve The mitral valve is normal in structure. No evidence of mitral valve stenosis. Mild mitral regurgitat ion. Tricuspid Valve The tricuspid valve is normal in structure. There is no tricuspid valve stenosis. Trace to mild tricu spid regurgitation. Pulmonic Valve The pulmonary valve is normal in structure. There is no pulmonic valvular stenosis. Trace pulmonic re gurgitation. Great Vessels The aortic root is normal in size. The ascending aorta is normal in size. IVC is normal in size and c ollapses >50% with inspiration. Pericardium There is no pericardial effusion. Prominent anterior epicardial fat pad is present. 2D Dimensions IVSD d PLAX 0.96 cm F: 0.6-1.0 LV Vol A2C d MOD 74.8 mL LVPW d PLAX 0.95 cm F: 0.6 - 1.0 LV Vol A4C d MOD 75.5 mL LVID d PLAX 5.19 cm F: 3.8 - 5.2 LA vol/ BSA A2C s A-L 19.8 mL/m2 LVDs 3.65 cm F: 2.2 - 3.5 LA vol/ BSA A4C s A-L 28.1 mL/m2 Ao Root d 2.67 cm F: 2.7 - 3.3 LA Vol/ BSA Biplane s A-L 24.5 mL/m2 RA Area A4C 13.14 cm2 LA Area A4C s MOD 19.27 cm2 RA Vol/ BSA A4C s A-L 16.0 mL/m2 LA Area A2C s MOD 15.58 cm2 Ao Asc Diam d 3.18 cm F: 2.3 - 3.1 LV EF A4C MOD 59.6 % LV EF Teichholz 55.2 % LV EF A2C MOD 58.5 % LVEF (Iyer's) 56.88 % F: 54 - 74 LV EF Biplane MOD 56.9 % LV Volume 59.29 mL F: 46 - 106 SV 44.43 mL LV Volume Index 30.72 mL/m2 F: 29 - 61 SV Index 23.01 mL/m2 LV Vol Biplane MOD 78.1 mL FS 28.85 % M-Mode TAPSE 2.09 cm (M/F) >1.7 LV Diastology MV E' medial 0.078 (>0.07 m/s) E/A Ratio 1.4 LV E/e MED 12.25 (<14) MV E Vmax 0.96 (0.4-1.3 m/s) MV E' lateral 0.084 (>0.1 m/s) MV A Vmax 0.70 (0.4-1.3 m/s) LV E/e LAT 11.40 (<14) MV E/A Ratio 1.30 MV E/E' medial 12.29 MV E/E' lateral 11.43 Aortic Valve LVOT Area 3.07 cm2 AoV Area Vmax 2.20 cm2 LVOT Vmax 1.15 m/s AoV Area/ BSA (Vmax) 1.14 cm2/m2 LVOT Mean Jose Carlos. 0.78 m/s MK Mean Jose Carlos. 2.17 cm2 LVOT Peak Grad 5.3 mmHg MK Mean Jose Carlos. Index 1.12 cm2/m2 LVOT Mean Grad 2.9 mmHg LVOT VTI 0.260 m LVOT Diam s 1.95 cm AoV Vmax 1.61 m/s Velocity Ratio 0.71 AoV Mean Jose Carlos. 1.10 m/s AoV Peak Grad 10.3 mmHg LVOT SV 79.60 mL AoV Mean Grad 5.5 mmHg AoV VTI 0.321 m AoV Area VTI 2.48 cm2 AoV Area/ BSA (VTI) 1.28 cm/m2 Mitral Valve MV DT 185 (160-240 msec) MR Vmax 4.52 m/s MV PHT 54 msec MR VTI 1.490 m MV Area PHT 4.10 cm2 MR Peak Grad 81.8 mmHg MV VTI 0.286 m MR Mean Grad 59.5 mmHg MV VTI Annulus 0.303 m MV Area VTI 2.95 (4.0-6.0 cm2) Pulmonary Valve PV Vmax 0.84 (0.5-1.5 m/s) RVOT Peak Gr. 1.60 mmHg PV Peak Grad 2.8 mmHg RVOT Mean Gr. 0.70 mmHg PV Mean Grad 1.6 mmHg RVOT VTI 0.130 m PV VTI 0.174 m RVOT Vmax 0.63 m/s Tricuspid Valve TR Peak Grad 38.0 mmHg TR Vmax 3.09 m/s RA Pressure 3.00 mmHg RVSP (TR) 41.1 mmHg
== END 2022-08-21 02:24 ==
PROVIDERS: PCP Internal Medicine; Visit Provider Family Medicine
DX: R60.9 Edema, unspecified (principal); R06.01 Orthopnea
CPT/HCPCS: 93306

== ENCOUNTER 2022-11-27 04:39 | Outpatient (CLI) | payer OTHER, MEDICARE, SELFPAY ==
--- NOTE | 2022-11-27 | DI.CTLCSR_ITS ---
Exam(s) CT CHEST LUNG CANCER SCREEN EXAM: CT CHEST LUNG CANCER SCREEN CLINICAL HISTORY: CURRENT SMOKER, F17.210,SCREENING FOR LUNG CA. TECHNIQUE: Imaging Protocol: Low Dose Technique CONTRAST MATERIAL: None COMPARISON: CT CT CHEST LUNG CANCER SCREEN from 06/08/2021 FINDINGS: CHEST: LUNGS: There are no new ominous pulmonary nodules. Tiny subpleural 2 millimeter nodule in the lateral aspect of the right upper lobe is unchanged from 2020. Another small 2 millimeter subpleural nodule in the anterior segment of the right upper lobe is also unchanged. There is mild infiltrate in the medial segment of the right middle lobe up against the right heart border. No pleural effusion. In the opposite-left lung there is mild infiltrate in the inferior lingular segment, similar to pre vious.. Some scarring in the medial aspect of the left lung base is unchanged. No new left lung fin dings. No pleural effusions. No new findings in the trachea and mainstem bronchi. MEDIASTINUM: There is no obvious hilar nor mediastinal adenopathy. CARDIAC: Heart size is normal. There is no pericardial effusion.Caliber of the thoracic aorta is wit hin normal limits. OTHER: Hepatomegaly and hepatic steatosis again evident. Spleen size remains normal. OSSEOUS: No significant osseous lesions.. IMPRESSION: 1. Benign-appearing lung findings which appear unchanged from prior study of May 2021. No new o minous pulmonary nodules. 2. No pleural effusions nor intrathoracic adenopathy. 3. Lung RADS Cat 2 - Benign Appearance / Behavior: Nodules with a very low likelihood of becoming a c linically active cancer due to size or lack of growth Lung-RADS 1.0 CATEGORIES: Category 0 - Prior chest CT exam(s) being located for comparison. Category 1 - Annual screening in 12 months. No nodules or definitely benign nodules. Category 2 - Annual screening in 12 months. Benign appearance. Nodules with low likelihood of becomin g active cancer. Category 3 - 6-month follow-up. Probably benign. Short-term follow-up suggested. Nodules with low lik elihood of becoming active cancer. Category 4A - 3-month follow-up and CT/PET if >8 mm in size. Suspicious finding. Findings which requi re additional testing. Category 4B - Findings which require additional testing and tissue sampling. Category 4X - Category 3 or 4 nodules with additional features or imaging findings that increases the suspicion of malignancy. Modifier S- Potentially clinically significant findings (non lung cancer) RADIATION DOSE DELIVERED: 72.24mGy.cm Total DLP DATA REPOSITORY: All CT scans at this facility are submitted to the National Radiology Data Registry (NRDR) Dose Index Registry (DIR) with the [employer] (ACR). RADIATION OPTIMIZATION: All CT scans at this facility use at least one of these dose optimization te chniques: automated exposure control; mA and/or kV adjustment per patient size (includes targeted exa ms where dose is matched to clinical indication); or iterative reconstruction.
== END 2022-11-27 04:59 ==
PROVIDERS: PCP Internal Medicine; Visit Provider Family Medicine
DX: F17.210 Nicotine dependence, cigarettes, uncomplicated (principal); J44.9 Chronic obstructive pulmonary disease, unspecified
CPT/HCPCS: 71271

== ENCOUNTER 2023-01-02 15:20 | Outpatient (REF) | payer OTHER, MEDICARE, SELFPAY ==
[2023-01-02 15:19] LABS: HCT 45.8 % (36.0-46.0); HGB 15.2 g/dL (11.2-15.7); MCH 35.9 pg (27.0-33.0); MCHC 33.2 % (32.0-36.0); MCV 108 fL (80-95); MPV 10.5 fL (8.0-11.0); Platelet Count 216 10^3/uL (130-400); RBC 4.23 10^6/uL (3.93-5.22); RDW 13.8 % (11.7-14.6); RDW-SD 55.5 fL; WBC 12.14 10^3/uL (4.4-10.8)
[2023-01-02 15:42] LABS: ALT 66 U/L (14-59); AST 65 U/L (15-37); Albumin 3.7 g/dL (3.4-5.0); Alkaline Phosphatase 134 U/L (46-116); Anion Gap 6.6 mmol/L (3-11); BUN 6 mg/dL (7-18); Bilirubin, Total 0.6 mg/dL (0.2-1.0); CO2 30.4 mmol/L (21.0-32.0); CREATININE 0.7 mg/dL (0.55-1.02); Calcium 8.9 mg/dL (8.5-10.1); Chloride 101 mmol/L (98-107); Estimated GFR 98.34 (mL/min/1.73m2); Glucose 205 mg/dL (74-106); Sodium 138 mmol/L (136-145)
[2023-01-02 16:20] LABS: Hemoglobin A1C 6.6 % (<5.7)
== END 2023-01-02 15:21 | disposition home or self-care (01) ==
LOC: NCHCN 15:20
PROVIDERS: PCP Internal Medicine; Visit Provider Family Medicine
DX: R73.03 Prediabetes (principal); D75.1 Secondary polycythemia; F17.210 Nicotine dependence, cigarettes, uncomplicated; J44.9 Chronic obstructive pulmonary disease, unspecified; Z99.81 Dependence on supplemental oxygen
CPT/HCPCS: 80053; 85027; 83036

== ENCOUNTER 2024-02-19 09:55 | Emergency (ER) | payer OTHER, MEDICARE, SELFPAY ==
[2024-02-19 10:00] VITALS: BP 106/39; PULSE 100; RESP 20; TEMP 36.3; O2SAT 85
--- NOTE | 2024-02-19 10:26 | ED.GENADUL_ITS ---
Discharge Plan Disposition Patient Disposition: Home Condition: Stable Discharge Details Clinical Impression: Acute bacterial conjunctivitis of right eye, Sinusitis, Impacted cerumen of right ear Primary Care Provider: Hawk Miller ED Provider: Marquita Silva Home Meds and New Rx's Prescriptions: New amoxicillin-pot clavulanate 875-125 mg tablet 1 tab PO BID 7 Days Qty: 14 0RF polymyxin B sulf-trimethoprim 10,000 unit- 1 mg/mL drops 1 drp ophthalmic (eye) Q3H 7 Days Qty: 10 0RF Rx Instructions: while awake; do not exceed 6 doses in 24 hours Continued venlafaxine 75 mg capsule,extended release 24hr 75 mg PO DAILY Incruse Ellipta 62.5 mcg/actuation blister with device 1 inh IH DAILY oxybutynin chloride [Ditropan XL] 5 mg tablet extended release 24hr 5 mg PO DAILY Qty: 30 3RF albuterol sulfate [ProAir HFA] 8.5 GM HFA aerosol inhaler 2 puff Inhalation Q6H PRN guaifenesin [Mucinex] 1,200 MG tablet extended release 12hr 1,200 mg PO DAILY fluticasone propion-salmeterol [Advair HFA] 60 PUFF/INH HFA aerosol inhaler 1 puff PO DAILY acetaminophen [Tylenol] 325 mg Tablet 650 mg PO Q4H PRN PRNQty: 0 0RF ipratropium-albuterol 0.5 mg-3 mg(2.5 mg base)/3 mL Solution For Nebulization 3 ml UPD Q4H PRN PRN (Reason: shortness of breath or wheezing) Qty: 180 0RF multivitamin [Multiple Vitamins] Tablet 1 tab PO DAILY Qty: 30 0RF prednisone 20 mg Tablet 40 mg PO DAILY Qty: 4 0RF thiamine mononitrate (vit B1) [Vitamin B-1 (mononitrate)] 100 mg Tablet 100 mg PO DAILY Qty: 30 0RF pantoprazole [Protonix] 40 mg tablet,delayed release (DR/EC) 40 mg PO DAILY Qty: 30 0RF Lactobacillus acidophilus Capsule 1,000 mmu cells PO DAILY Qty: 30 0RF Rx Instructions: administer with a meal nystatin 100,000 unit/gram powder 1 applic topical TID Qty: 30 0RF Rx Instructions: apply to reddened area in the groin/skin folds furosemide 20 mg tablet 20 mg PO DAILY Qty: 2 0RF Discharge Instructions Instructions: How to Use Eye Drops, Ear Wax Impaction ED, Conjunctivitis ([facility]) ED Additional Instructions: Pinkeye is very contagious for at least 3 days, please wash your hands before touching your eye, you may use a warm compress to the eye, clean pillowcases and do not share towels. A oral antibiotic was also sent to the pharmacy on file. You are given the first Augmentin here in the department today to treat for possible sinusitis. Please use the eyedrops as directed 1 to 2 drops every 3-4 hours while awake for the next 5 to 7 days. Please follow-up with your primary care provider within the next 5 to 7 days for recheck. Return to the ER for worsening headache, blurry vision that does not get better after the next 3 days, worsening fever or chills, weakness in your arms or legs, chest pain worsening shortness of breath or concerns. Referrals: Hawk Miller MD [Primary Care Provider] - 5 days Discharge Data Discharge Date/Time-TO BE ENTERED AT DEPARTURE: 02/19/24 11:08 HPI General Mode of arrival: wheelchair . Date/Time Provider Initiated Documentation: 02/19/24 10:12 . Limitations to Documentation: no limitations . Information obtained by: patient, RN notes reviewed and old records reviewed . HPI Narrative: 63-year-old female presents to the ER with a chief complaint of right injection, right forehead pain, and drainage to the right eye with crusty's for the last 2 to 3 days. She reports that her portable oxygen concentrator broke and so her upon arrival her O2 sat is 85%. She normally is on 2 to 4 L home O2 with activity and at night. She was placed on 2 L nasal cannula here in the department and is satting 91 to 94%. She does have a past medical history of COPD, emphysema, she is a daily smoker, does have CHF. She denies any chest pain, denies any increase shortness of breath or change in productive cough, she denies any new swelling noted to her lower extremities. She is alert and oriented x 4, denies any recent head injuries. She has no facial droop, no signs or symptoms of CVA at this time. Related Data Home Medications ?Medication ?Instructions ?Recorded ?Confirmed albuterol sulfate 90 mcg/actuation 2 puff inhalation Q6H PRN 01/21/18 02/19/24 aerosol inhaler (ProAir HFA) guaifenesin 1,200 mg tablet, 1,200 mg PO DAILY 01/21/18 02/19/24 extended release 12 hr (Mucinex) fluticasone propionate 230 1 puff PO DAILY 03/10/18 02/19/24 mcg-salmeterol 21 mcg/actuation HFA inhaler (Advair HFA) umeclidinium 62.5 mcg/actuation 1 inh inhalation DAILY 04/10/19 02/19/24 blister powder for inhalation (Incruse Ellipta) venlafaxine 75 mg capsule,extended 75 mg PO DAILY 03/29/20 02/19/24 release 24 hr Lactobacillus acidophilus 1,000 mmu cells PO DAILY #30 caps 04/25/20 02/19/24 acetaminophen 325 mg tablet 650 mg (2 x 325 mg) PO Q4H PRN PRN 04/25/20 02/19/24 (Tylenol) #0 tabs furosemide 20 mg tablet 20 mg PO DAILY #2 tabs 04/25/20 02/19/24 ipratropium 0.5 mg-albuterol 3 mg 3 ml UPD Q4H PRN PRN shortness of 04/25/20 02/19/24 (2.5 mg base)/3 mL nebulization breath or wheezing #180 mL soln multivitamin (Multiple Vitamins 1 tab PO DAILY #30 tabs 04/25/20 02/19/24 tablet) nystatin 100,000 unit/gram topical 1 applic topical TID #30 grams 04/25/20 02/19/24 powder pantoprazole 40 mg tablet,delayed 40 mg PO DAILY #30 tabs 04/25/20 02/19/24 release (Protonix) prednisone 20 mg tablet 40 mg (2 x 20 mg) PO DAILY #4 tabs 04/25/20 02/19/24 thiamine mononitrate (vit B1) 100 100 mg PO DAILY #30 tabs 04/25/20 02/19/24 mg tablet (Vitamin B-1 (mononitrate)) oxybutynin chloride 5 mg 5 mg PO DAILY #30 tabs 05/24/20 02/19/24 tablet,extended release 24 hr (Ditropan XL) amoxicillin 875 mg-potassium 1 tab PO BID 7 days #14 tabs 02/19/24 clavulanate 125 mg tablet polymyxin B sulfate 10,000 1 drp ophthalmic (eye) Q3H 02/19/24 unit-trimethoprim 1 mg/mL eye drops conjunctivitis 7 days #10 mL Previous Rx's ?Medication ?Instructions ?Recorded Lactobacillus acidophilus 1,000 mmu cells PO DAILY #30 caps 04/25/20 acetaminophen 325 mg tablet 650 mg (2 x 325 mg) PO Q4H PRN PRN 04/25/20 (Tylenol) #0 tabs furosemide 20 mg tablet 20 mg PO DAILY #2 tabs 04/25/20 ipratropium 0.5 mg-albuterol 3 mg 3 ml UPD Q4H PRN PRN shortness of 04/25/20 (2.5 mg base)/3 mL nebulization breath or wheezing #180 mL soln multivitamin (Multiple Vitamins 1 tab PO DAILY #30 tabs 04/25/20 tablet) nystatin 100,000 unit/gram topical 1 applic topical TID #30 grams 04/25/20 powder pantoprazole 40 mg tablet,delayed 40 mg PO DAILY #30 tabs 04/25/20 release (Protonix) prednisone 20 mg tablet 40 mg (2 x 20 mg) PO DAILY #4 tabs 04/25/20 thiamine mononitrate (vit B1) 100 100 mg PO DAILY #30 tabs 04/25/20 mg tablet (Vitamin B-1 (mononitrate)) oxybutynin chloride 5 mg 5 mg PO DAILY #30 tabs 05/24/20 tablet,extended release 24 hr (Ditropan XL) amoxicillin 875 mg-potassium 1 tab PO BID 7 days #14 tabs 02/19/24 clavulanate 125 mg tablet polymyxin B sulfate 10,000 1 drp ophthalmic (eye) Q3H 02/19/24 unit-trimethoprim 1 mg/mL eye drops conjunctivitis 7 days #10 mL Allergies Allergy/AdvReac Type Severity Reaction Status Date / Time Sulfa (Sulfonamide AdvReac Severe LOWERS BP Unverified 04/22/20 14:59 Antibiotics) General Stated Complaint: EyeProblem RADHA: 3 Review of Systems All systems reviewed & are unremarkable except as noted in HPI and below Constitutional Constitutional: Reports as per HPI, Denies chills, Denies fever(s), Denies frequent falls and Reports headache(s) Eyes Eyes: Reports eye discharge, Reports irritation, Reports itchy eyes, Reports eye pain and Denies seeing flashes ENT Ears, Nose, Mouth, and Throat: Reports as per HPI and Reports headache(s) Cardiovascular Cardiovascular: Denies chest pain and Denies dyspnea Respiratory Respiratory: Denies dyspnea Gastrointestinal Gastrointestinal: Denies abdominal pain, Denies diarrhea, Denies nausea and Denies vomiting Neurologic Neurologic: Denies frequent falls and Reports headache(s) Allergic/Immunologic Allergic/Immunologic: Reports itchy eyes Exam Narrative Exam Narrative: Constitutional: Alert and oriented x3. Appears stated age. Obese body habitus. Head: Normocephalic, no trauma. Eyes: Pupils PERRL, Red reflex noted, EOM's intact. Right conjunctive injected diffusely, purulent discharge noted with crusts, ENT: Unable to visualize right TM due to cerumen impaction,, External ear normal to inspection, no mastoid TTP, swelling, or erythema, Nasal turbinates WNL, no nasal discharge. Normal dentition, Posterior pharynx WNL, no exudate. Chest: RRR, Normal S1, S2, distal pulses intact. She does have chronic appearing bilateral edema noted to her lower extremities, she reports no change. Resp: Lungs clear to auscultation bilaterally, no wheezes, rales, or rhonchi. Abdomen: Soft, non-distended, Normoactive bowel sounds all 4 quads. Musculoskeletal: Normal gait, Moves all 4 extremities without difficulty. Skin: No suspicious rashes or lesions. Capillary refill less than 2 sec. Neurologic: Cranial nerves II-XII intact. Alert and oriented x 3. Motor: No deficits noted. Sensory: Intact bilaterally all 4 extremities. No facial droop, no pronator drift, intact dorsiflexion pedal flexion. Hematologic/Lymphatic: No ecchymosis, no lymphadenopathy. Course Vital Signs Vital signs: Vital Signs Temperature 36.3 C L 02/19/24 10:00 Pulse 100 H 02/19/24 10:00 Respiratory Rate 20 02/19/24 10:00 Blood Pressure 106/39 L 02/19/24 10:00 Pulse Oximetry 85 L 02/19/24 10:00 Temperature 36.3 C L 02/19/24 10:00 Temperature Source Temporal Artery Scan 02/19/24 10:00 Pulse 100 H 02/19/24 10:00 Respiratory Rate 20 02/19/24 10:00 Blood Pressure 106/39 L 02/19/24 10:00 Blood Pressure Position Sitting 02/19/24 10:00 Pulse Oximetry 85 L 02/19/24 10:00 Oxygen Delivery Method Room Air 02/19/24 10:00 Oxygen Flow Rate 0 02/19/24 10:00 Pain Level 9 02/19/24 10:00 Comment Has not had any OTC pain meds today 02/19/24 10:00 Medical Decision Making 63-year-old female presents to the ER with a chief complaint of right injection, right forehead pain, and drainage to the right eye with crusty's for the last 2 to 3 days. She reports that her portable oxygen concentrator broke and so her upon arrival her O2 sat is 85%. She normally is on 2 to 4 L home O2 with activity and at night. She was placed on 2 L nasal cannula here in the department and is satting 91 to 94%. She does have a past medical history of COPD, emphysema, she is a daily smoker, does have CHF. She denies any chest pain, denies any increase shortness of b reath or change in productive cough, she denies any new swelling noted to her lower extremities. She is alert and oriented x 4, denies any recent head injuries. She has no facial droop, no signs or symptoms of CVA at this time. On exam she does have injected conjunctiva, purulent drainage noted, EOMs are intact, PERRLA, Right TM is obstructed due to cerumen impaction. She is complaining of de creased hearing in her right ear. She does report headache and photosensitivity for the last few days. Shared decision making discussed with patient regarding workup including labs head CT imaging at this time there is no evidence of CVA no focal neuromotor deficit she is alert and oriented x 4. She is just requesting antibiotics at this point. I will give her polymyxin eyedrops here in the department and Augmentin for possible sinus infection. Will instruct to follow-up with PCP within the next 3 to 5 days return to the ER for any worsening symptoms. This text was generated using [employer] system, please disregard any oddities of phrase or misspellings. Medical Records Medical records reviewed: Yes I reviewed the patient's medical records. Quality:SDOH Health Related Social Needs: No Data to Display PFSH All Active Problems Impacted cerumen of right ear (Acute) Sinusitis (Acute) Acute bacterial conjunctivitis of right eye (Acute) COPD (chronic obstructive pulmonary disease) (Acute) Mixed stress and urge urinary incontinence (Acute) Screening for malignant neoplasm of cervix (Acute) Urinary, incontinence, stress female (Acute) Acute bacterial bronchitis (Acute) Chemical gastritis (Chronic) Tobacco abuse (Chronic) Pulmonary hypertension (Acute) Snoring (Chronic) Lumbar nerve root impingement (Acute) Discharge planning issues (Acute) DVT prophylaxis (Acute) Chronic back pain (Chronic) Fungal dermatitis (Acute) Folliculitis (Acute) Acute exacerbation of chronic obstructive pulmonary disease (COPD) (Acute) Asthma exacerbation in COPD (Acute) Hypoxia (Chronic) Colon polyp (Acute) Diverticulosis (Acute) Gastritis (Acute) Esophagitis (Acute) Hearing loss in left ear (Acute) Cataract, left eye (Acute) Multiple lung nodules (Acute) Macrocytosis (Acute) Exertional dyspnea (Acute) Intermittent palpitations (Acute) Lump of right breast (Acute) Cough (Acute) Dysphagia (Acute) Colon cancer screening (Acute) Nausea & vomiting (Acute) Diarrhea (Acute) Varicose veins of both lower extremities (Acute) Depression (Chronic) Alcohol abuse (Chronic) Medical History Smoker Adenomatous colon polyp H/O recurrent urinary tract infection Lower back pain Surgical History Tubal ligation status Hx of tonsillectomy History of shoulder surgery Hx of cataract surgery bilat. Family History Other Cancer Diabetes Heart disease Social History Smoking/Tobacco Use Status: Current every day Tobacco Type: cigarettes Smoking risk assessment performed?: Yes Alcohol Intake: current Alcohol Intake frequency: 0-2 drinks per day Alcohol type: hard liquor Drug use: Never Substance use type: does not use Do you feel safe at home: Yes Do you feel safe in your relationship?: Yes
[2024-02-19] MEDS: Polymyxin B/Trimethoprim Ophth Soln 10 ML BTL OD (10:34)
[2024-02-19] MEDS: Amox. 875/Clav. 125, 2 TABS/BTL 1 TAB PO (11:04)
[2024-02-19] MEDS: Amoxicillin 875/Clav. 125 TAB PO (11:04)
[2024-02-19 11:05] VITALS: BP 108/68; PULSE 94; O2SAT 96
--- OUTSIDE RECORDS SUMMARY | 2024-02-19 11:25 | XMS_ITS | Clinical Summary ---
Author Organization [facility] Address [address] [place] [address] Care Team Providers Care Tube Tester Name Role Phone Hawk Miller MD Primary Care Provider [phone] Allergies Active Allergy Reactions Criticality Noted Date Comments Sulfa (Sulfonamide Antibiotics) 01/26 Low blood pressure Medications Medication Sig Dispensed Refills Start Date End Date Status tiotropium (SPIRIVA WITH HANDIHALER) 18 mcg inhalation capsule Inhale 18 mcg as directed daily. Active ACETAMINOPHEN (TYLENOL ORAL) Take by mouth as needed. Active cyclobenzaprine (FLEXERIL) 10 mg tablet Take 10 mg by mouth at bedtime. 02/02/2011 Active Active Problems Problem Noted Date Diagnosed Date Thyroid nodule 02/08/2010 Overview: Right Social History Tobacco Use Types Packs/Day Years Used Date Smoking Tobacco: Never Assessed Interpersonal Safety Answer Date Record ed Physically Hurt Never 04/22/2020 Verbally Threaten Not on file 04/22/2020 Sex and Gender Information Value Date Recorded Sex Assigned at Not on file Gender Identity Not on file Sexual Orientation Not on file Obstetrics History Last Filed Vital Signs Vital Sign Reading Time Taken Comments Blood Pressure 98/66 02/02/2011 1301 EDT Pulse 80 02/02/2011 1301 EDT Temperature - - Respiratory Rate - - Oxygen Saturation - - Inhaled Oxygen Concentration - - Weight 80.3 kg (177 lb) 02/02/2011 1301 EDT Height 164.5 cm (5' 4.75) 02/02/2011 1301 EDT Body Mass Index 29.68 02/02/2011 1301 EDT Plan of Treatment Health Maintenance Due Date Last Done Comments Hepatitis C Screen 1960 RSV Immunization ( o r 60+ Years) (1 - 1-dose 60+ series) 2021 COVID-19 Vaccine ( - 2022-24 season) 2023 Care Teams Tube Tester Relationship Specialty Start Date End Date Hawk Miller MD [address] [place] [id number] PCP - General 02/01/11
--- OUTSIDE RECORDS SUMMARY | 2024-02-19 11:25 | XMS_ITS | Encounter Summary ---
Author Organization [facility] [place] [address] Care Team Providers Care Edge Sawyer Name Role Phone Hawk Miller MD Primary Care Provider Reason for Visit * Consultation (Routine) - Closed Specialty Diagnoses / Procedures Referred By Contac t Referred To Contact Neurosurgery Diagnoses L4-5 LEFT LATERAL DISC PROTRUSION WITH NERVE ROOT IMPINGEMENT Yue Sánchez MD [address] [place] [address] [facility] [address] [place] [address] Referral ID Status Reason Start Date Expiration Date V isits Requested Visits Authorized [id number] Closed Consult, Test & Treat Connection Center PCP Updated and/or Approved 04/26/2020 04/26/2021 6 6 Encounter Details Date Type Department Care Team (Latest Contact Info) Description 05/24/2020 2:15 PM EDT TH Visit (TeleHealth) [place] [address] Simón Henning PA [facility] [place] [address] Lumbar disc herniation Social History Tobacco Use Types Packs/Day Years Used Date Smoking Tobacco: Never Assessed Sex and Gender Information Value Date Recorded Sex Assigned at Not on file Gender Identity Not on file Sexual Orientation Not on file documented as of this encounter Progress Notes * Simón Henning PA - 05/24/2020 2:15 PM EDT Images from the original note were not included. Section of Neurosurgery Initial Consultation Note - Telephone Office Visit 05/24/2020 Yue Sánchez MD [address] [place] [address] RE: Karen Ramos : [address] Sánchez: Thank you for referring your patient Karen Ramos to the Neurosurgery Clinic at [facility] for evaluation of lumbar disc herniation. As you know, Ms. Ramos is a pleasant 60 y.o. female who has a 45 year history of chronic back pain. She was recently admitted to [facility] for COPD exacerbation and complained of bowel and urinary incontinence. She got a MRI of the lumbar spine to rule out cauda equina. While this did not show cauda equina there was a left extra foraminal disc herniation at L4-5 that contacts the exiting L4 nerve root. Pertinent to this finding, Ms. Ramos atthis time denies radicular leg pain, focal motor weakness, and sensory disturbances. Her back pain which did flare during her hospitalization has improved. She no longer has bowel or bladder complaints. 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 PAST MEDICAL HISTORY: COPD CHF Chronic back pain PAST SURGICAL HISTORY: No past surgical history on file. SOCIAL HISTORY: Social History Tobacco Use ??? Smoking status: Not on file Substance Use Topics ??? Alcohol use: Not on file ??? Drug use: Not on file FAMILY HISTORY: No family history on file. CURRENT MEDICATIONS: No current outpatient medications on file. ALLERGIES: Not on File REVIEW OF SYSTEMS: Genitourinary: Per HPI. Gastrointestinal: Per HPI. Musculoskeletal: Per HPI. Neurological: Per HPI. PHYSICAL EXAMINATION: Telephone RADIOGRAPHIC STUDIES: MRI lumbar spine wo contrast 04/25/2020 Left extra foraminal disc herniation L4-5 contacting exiting L4 nerve root. IMPRESSION AND PLAN: Ms. Ramos is a 60 y.o. female presenting with asymptomatic small left L4-5 extraforaminal disc herniation No radicular symptoms. L4-5 disc herniation is an asymptomatic finding. Back pain is overall improving with GBP and cessation in manufacturing/assembly line type work. No indication for neurosurgicalintervention at this time. Ms. Ramos may follow up on an as needed basis. It was my pleasure to have consulted with Ms. Ramos today. Thank you again for your referral. Please don't hesitate to contact me if you have any further questions. Patient verbally consents to this telephone visit and understands that this visit may be billed, similar to a clinic office visit. I provided care to the patient today via telephone call. The total time associated with this visit was 20 minutes. Sincerely, Simón Henning PA-C, MS Physician Methods Examiner [facility] Department of Neurosurgery [address] [place] [phone] CC: Hawk Miller MD CC: Yue Sánchez MD [address] [place] [address] This message is confidential, intended only for the named recipient(s) and may contain information that is privileged or exempt from disclosure under applicable law. If you are not the intended recipient(s), you are notified that the dissemination, distribution or copying of this information is strictly prohibited. If you received this message in error, please notify the sender then delete this message. documented in this encounter Plan of Treatment Not on file documented as of this encounter Visit Diagnoses Diagnosis Lumbar disc herniation Displacement of lumbar intervertebral disc without myelopathy documented in this encounter Care Teams Edge Sawyer Relationship Specialty Start Date End Date Hawk Miller MD [address] [place] [address] PCP - General Internal Medicine 04/28/20 documented as of this encounter
--- OUTSIDE RECORDS SUMMARY | 2024-02-19 11:25 | XMS_ITS | Encounter Summary ---
Author Organization [facility] Address [address] [place] [address] Care Team Providers Care Nurse Technician Name Role Phone Hawk Miller MD Primary Care Provider [phone] Encounter Details Date Type Department Care Team (Late st Contact Info) Description 04/25/2020 Lab Requisition [facility] Pathology & Laboratory Medicine - [address] [address] Outr Resulting Lab, Provider Social History Tobacco Use Types Packs/Day Years Used Date Smoking Tobacco: Never Assessed Interpersonal Safety Answer Date Record ed Physically Hurt Never 04/22/2020 Verbally Threaten Not on file 04/22/2020 Sex and Gender Information Value Date Recorded Sex Assigned at Not on file Gender Identity Not on file Sexual Orientation Not on file documented as of this encounter Plan of Treatment Not on file documented as of this encounter Procedures Procedure Name Priority Date/Time Associated Diagnosis Comments FECAL BACTERIAL PATHOGENS BY PCR Routine 04/25/2020 8:25 EDT documented in this encounter Results * FECAL BACTERIAL PATHOGENS BY PCR (04/25/2020 8:25 EDT) Salmonella PCR Negative Negative 05/02/2020 13:10 EDT [facility] Shigella/Enteroin vasive E. coli Negative Negative 05/02/2020 13:10 EDT [facility] HN LAB CAMPYLOBACTER PCR Negative Negative 05/02/2020 13:10 EDT [facility] Shiga Toxin PCR Negative Negative 0 13:10 EDT [facility] Feces SPECIMEN FROM RECTUM / Unknown 04/25/2020 8:25 EDT 04/25/2020 17:19 EDT Narrative [facility] - 05/02/2020 13:10 EDT No Yersinia enterocolitica or Vibrio species recovered. ? Testing performed by [facility] via culture method. PCR test will be credited. Provider Outr Resulting Lab MICROBIOLOGY - GENERAL ORDERABLES [facility] [address] [place] [address] documented in this encounter Visit Diagnoses Not on filedocumented in this encounter Care Teams Nurse Technician Relationship Specialty Start Date End Date Hawk Miller MD [address] [place] [id number] PCP - General 02/01/11 documented as of this encounter
--- OUTSIDE RECORDS SUMMARY | 2024-02-19 11:25 | XMS_ITS | Encounter Summary ---
Author Organization [facility] [place] [address] [place] [address] Care Team Providers Care Knit Tubing Dyer Name Role Phone Miranda Pulido MD Primary Care Provider Encounter Details Date Type Department Care Team (Late st Contact Info) Description 04/25/2020 Ancillary Procedure [place] [id number] Hawk Miller MD [address] [place], [place] [address] Social History Tobacco Use Types Packs/Day Years Used Date Smoking Tobacco: Never Assessed Sex and Gender Information Value Date Recorded Sex Assigned at Not on file Gender Identity Not on file Sexual Orientation Not on file documented as of this encounter Plan of Treatment Not on file documented as of this encounter Procedures Procedure Name Priority Date/Time Associated Diagnosis Comments FILM LIBRARY STORAGE ONLY MR SPINE Routine 04/25/2020 12:00 AM EDT documented in this encounter Results * Film Library- Storage Only MR Spine (04/25/2020 12:00 AM EDT) Narrative [facility] - 04/29/2020 12:01 PM EDT This exam is auto-finalizing. It's purpose is for storage only. Hawk Miller MD IMG FILM LIBRARY ORD ERABLES [place], [place] documented in this encounter Visit Diagnoses Not on filedocumented in this encounter Care Teams Knit Tubing Dyer Relationship Specialty Start Date End Date Miranda Pulido MD [address] [place], [place] [address] PCP - General 06/20/10 04/27/20 documented as of this encounter
--- OUTSIDE RECORDS SUMMARY | 2024-02-19 11:25 | XMS_ITS | Clinical Summary ---
[place] [address] Care Team Providers Care Manual Lathe Machinist Name Role Phone Hawk Miller MD Primary Care Provider Social History Tobacco Use Types Packs/Day Years Used Date Smoking Tobacco: Never Assessed Sex and Gender Information Value Date Recorded Sex Assigned at Not on file Gender Identity Not on file Sexual Orientation Not on file Plan of Treatment Health Maintenance Due Date Last Done Comments CT Colonography 1961 Colonoscopy 1961 Colorectal Cancer Screening 1961 FIT DNA 1961 FIT 1961 Sigmoidoscopy (10 year) with FIT yearly 1961 Sigmoidoscopy 1961 HIV screen 1979 Hepatitis C Screening 1979 Tdap adult 1980 Tetanus vaccine 1980 HPV test 1991 PAP Smear 1991 Breast Cancer Share Decision Needed 2001 Breast Cancer screening 2001 Zoster vaccine (1 of 2) 2011 Advance Directive 2016 Covid-19 Vaccine ( season) 2023 Influenza (Flu) vaccine (1 o f 1 - Influenza standard series) 03/29/2024 Care Teams Manual Lathe Machinist Relationship Specialty Start Date End Date Hawk Miller MD [address] [place] [address] PCP - General Internal Medicine 04/28/20
--- OUTSIDE RECORDS SUMMARY | 2024-02-19 11:25 | XMS_ITS | Referral Summary ---
Author Organization [facility] Address [address] [place] [address] Care Team Providers Care Pulp Roller Name Role Phone Hawk Miller MD Primary Care Provider [phone] Allergies Active Allergy Reactions Criticality Noted Date [...] on file Sexual Orientation Not on file Last Filed Vital Signs Vital Sign Reading Time Taken Comments Blood Pressure 98/66 02/02/2011 1301 EDT Pulse 80 02/02/2011 1301 EDT Temperature - - Respiratory Rate - - Oxygen Saturation - - Inhaled Oxygen Concentration - - Weight 80.3 kg (177 lb) 02/02/2011 1301 EDT Height 164.5 cm (5' 4.75) 02/02/2011 1301 EDT Body Mass Index 29.68 02/02/2011 1301 EDT Plan of Treatment Not on file Care Teams Pulp Roller Relationship Specialty Start Date End Date Hawk Miller MD [address] [place] [address] PCP - General 02/01/11
--- OUTSIDE RECORDS SUMMARY | 2024-02-19 11:25 | XMS_ITS | Encounter Summary ---
Author Organization [facility] Address [address] [place] [address] Care Team Providers Care Optical Engineering Manager Name Role Phone Hawk Miller MD Primary Care Provider [phone] Encounter Details Date Type Department Care Team (Late st Contact Info) Description 05/17/2020 Lab Requisition [facility] Pathology & Laboratory Medicine - [facility] [address] [place], [place] [address] Outr Resulting Lab, Provider Social History Tobacco [...] Procedure Name Priority Date/Time Associated Diagnosis Comments TRANSFERRIN Routine 05/16/2020 8:05 EDT documented in this encounter Results * TRANSFERRIN (05/16/2020 8:05 EDT) Transferrin 254 201 - 352 mg/dL 05/18/2020 10:35 EDT [facility] Blood VENOUS BLOOD / Unknown 05/16/2020 8:05 EDT 05/17/2020 16:58 EDT Provider Outr Resulting Lab CHEMISTRY & BLOOD GAS ORDERABLES [facility] [address] [place] [address] documented in this encounter Visit Diagnoses Not on filedocumented in this encounter Care Teams Optical Engineering Manager Relationship Specialty Start Date End Date Hawk Miller MD [address] [place] [address] PCP - General 02/01/11 documented as of this encounter
--- OUTSIDE RECORDS SUMMARY | 2024-02-19 11:26 | XMS_ITS | Encounter Summary ---
Author Organization [facility] Address [address] [place] [address] Care Team Providers Care C Python Developer Name Role Phone Unavailable Primary Care Provider Unavailabl e Encounter Details Date Type Department Care Team (Late st Contact Info) Description 12/31/2007 Results Only [facility] [address] [place] [address] Pj Taylor FNP [address] [place], [place] [id number] Social History Tobacco Use Types Packs/Day Years Used Date Smoking Tobacco: Never Assessed Sex and Gender Information Value Date Recorded Sex Assigned at Not on file Gender Identity Not on file Sexual Orientation Not on file documented as of this encounter Plan of Treatment Not on file documented as of this encounter Procedures Procedure Name Priority Date/Time Associated Diagnosis Comments CYTOPATHOLOGY Routine 12/31/2007 0:00 EDT documented in this encounter Results * CYTOPATHOLOGY (12/31/2007 0:00 EDT) Pathology Report: CYTOPATHOLOGY REPORT Reports generated via electronic interface contain original data; however they are lacking the format of the original report. Caution should be taken when reading/interpreti ng unformatted reports. Name: ? KAREN MORALES ? Accession #: ? [id number] : ? 1960 (Age: 47) ??F ?Collect Date: ? 12/31/2007 Location: ? [facility] ? Receive Date: ? 01/01/2008 Provider: ?PJ TAYLOR DIRECTOR OF ONLINE EDUCATION Copy to: ? Specimen/Source: ?ThinPrep Pap Test, Cervix/Endocervix, processed on [employer] ThinPrep Imaging System, with manual evaluation Last Menstrual Period: ? 12/17/07 Previous Gynecologic Pathology: ? Yes: Remote hx abnormal Other: ? HPVA - HPV testing requested if ASC-US on the current ThinPrep Pap test. ? SPECIMEN ADEQUACY ? Satisfactory for Evaluation - transformation zone component present GENERAL CATEGORIZATION ? Negative for Intraepithelial Lesion or Malignancy ? Document reviewed and electronically signed by: ? CAPRICE Mendoza(ASCP) ? Report Date: ??01/05/2008 08:50 End of Report [facility] 12/31/2007 01/01/2008 Pj Taylor DIRECTOR OF ONLINE EDUCATION PATHOLOGY ORDERABLES [facility] CUEV[facility] [address] [place] [address] documented in this encounter Visit Diagnoses Not on filedocumented in this encounter
--- OUTSIDE RECORDS SUMMARY | 2024-02-19 11:26 | XMS_ITS | Encounter Summary ---
Author Organization [facility] Address [address] [place] [address] Care Team Providers Care Silverware Washer Name Role Phone Hawk Miller MD Primary Care Provider [phone] Encounter Details Date Type Department Care Team (Late st Contact Info) Description 04/01/2020 Lab Requisition [facility] Pathology & Laboratory Medicine - [facility] [address] [place], [place] [address] Outr Resulting Lab, Provider Social History Tobacco [...] Procedure Name Priority Date/Time Associated Diagnosis Comments DO NOT ORDER STANDALONE - BROAD COVID TEST Today 04/01/2020 9:27 EDT COVID-19 TESTING Routine 04/01/2020 9:27 EDT documented in this encounter Results * DO NOT ORDER STANDALONE - BROAD COVID TEST (04/01/2020 9:27 EDT) COVID-19 rt-PCR Result NEGATIVE Negative 04/03/2020 15:18 EDT [facility] Comment: 2019-novel Coronavirus (2019-nCoV) not detected by the qRT-PCR assay. Consider testing for other respiratory viruses or re-collecting for 2019-nCoV testing. Note: Optimum timing for peak viral levels during infections caused by 2019-nCoV have not been determined. Collection of multiple specimens from the same patient may be necessary to detect the virus. Limitations Positive results are indicative of active infection with SARS-CoV-2 but do not rule out bacterial infection or co-infection with other viruses. The agent detected may not be the definite cause of disease. In addition, detection of viral RNA may not indicate the presence of infectious virus or that SARS-CoV-2 is the causative agent for clinical symptoms. Negative results do not preclude SARS-CoV-2 infection and should not be used as the sole basis for patient management decisions. Negative results must be combined with clinical observations, patient history, and epidemiological information. False negative results may also occur if amplification inhibitors are present in the specimen or if inadequate numbers of organisms are present in the specimen. Optimum specimen types and timing for peak viral levels during infections caused by SARS-CoV-2 have not been fully determined. Collection of multiple specimens (types and time points) from the same patient may be necessary to detect the virus. The test was validated for use with upper respiratory specimens obtained via nasopharyngeal or oropharyngeal swabs in VTM, UTM, M4, M5, M6, saline, and MTM media. The performance of this test has not been established for other specimens. Specimens collected using other FDA recommended Specimen Collection Materials listed in the FDA COVID-19 [employer] communication (October 22, 2019) are processed with the caveat that they were not all validated for use with this test and the result must be interpreted in this context. Furthermore, a false negative results may occur if a specimen is improperly collected, transported or handled. If the virus mutates in the RT-PCR target region, SARS-CoV-2 may not be detected or may be detected less predictably. Inhibitors or other types of interference may produce a false negative result. An interference study evaluating the effect of common cold medications was not performed. This test is not FDA-cleared but its performance characteristics were established by our CLIA-certified, CAP-accredited, high complexity laboratory in accordance with CLIA regulations, [employer] [place] [employer] (CAP) guidelines (Oct 15, 2019), and FDA guidance (Sep 26, 2019). This test is only for use under the Food and Drug Administration's Emergency Use Authorization. Swab ENTIRE NASOPHARYNX / Unknown 04/01/2020 9:27 EDT 04/01/2020 15:39 EDT Provider Outr Resulting Lab MICROBIOLOGY - GENERAL ORDERABLES [facility] [place], [place] * COVID-19 TESTING (04/01/2020 9:27 EDT) COVID-19 rt-PCR Result NEGATIVE Negative 04/03/2020 17:53 EDT [facility] Comment: 2019-novel Coronavirus (2019-nCoV) not detected by the qRT-PCR assay. Consider testing for other respiratory viruses or re-collecting for 2019-nCoV testing. Note: Optimum timing for peak viral levels during infections caused by 2019-nCoV have not been determined. Collection of multiple specimens from the same patient may be necessary to detect the virus. Limitations Positive results are indicative of active infection with SARS-CoV-2 but do not rule out bacterial infection or co-infection with other viruses. The agent detected may not be the definite cause of disease. In addition, detection of viral RNA may not indicate the presence of infectious virus or that SARS-CoV-2 is the causative agent for clinical symptoms. Negative results do not preclude SARS-CoV-2 infection and should not be used as the sole basis for patient management decisions. Negative results must be combined with clinical observations, patient history, and epidemiological information. False negative results may also occur if amplification inhibitors are present in the specimen or if inadequate numbers of organisms are present in the specimen. Optimum specimen types and timing for peak viral levels during infections caused by SARS-CoV-2 have not been fully determined. Collection of multiple specimens (types and time points) from the same patient may be necessary to detect the virus. The test was validated for use with upper respiratory specimens obtained via nasopharyngeal or oropharyngeal swabs in VTM, UTM, M4, M5, M6, saline, and MTM media. The performance of this test has not been established for other specimens. Specimens collected using other FDA recommended Specimen Collection Materials listed in the FDA COVID-19 [employer] communication (October 22, 2019) are processed with the caveat that they were not all validated for use with this test and the result must be interpreted in this context. Furthermore, a false negative results may occur if a specimen is improperly collected, transported or handled. If the virus mutates in the RT-PCR target region, SARS-CoV-2 may not be detected or may be detected less predictably. Inhibitors or other types of interference may produce a false negative result. An interference study evaluating the effect of common cold medications was not performed. This test is not FDA-cleared but its performance characteristics were established by our CLIA-certified, CAP-accredited, high complexity laboratory in accordance with CLIA regulations, [employer] [place] [employer] (CAP) guidelines (Oct 15, 2019), and FDA guidance (Sep 26, 2019). This test is only for use under the Food and Drug Administration's Emergency Use Authorization. Performing Lab [facility] [place] 04/03/2020 17:[address] [facility] Swab 04/01/2020 9:27 EDT 04/01/2020 15:39 EDT Provider Outr Resulting Lab MICROBIOLOGY - GENERAL ORDERABLES [facility] [address] [place] [address] [facility] [place], [place] documented in this encounter Visit Diagnoses Not on filedocumented in this encounter Care Teams Silverware Washer Relationship Specialty Start Date End Date Hawk Miller MD [address] [place] [address] PCP - General 02/01/11 documented as of this encounter
--- OUTSIDE RECORDS SUMMARY | 2024-02-19 11:26 | XMS_ITS | Encounter Summary ---
Author Organization [facility] Address [address] [place] [address] Care Team Providers Care Audiology Director Name Role Phone Unavailable Primary Care Provider Unavailabl e Encounter Details Date Type Department Care Team (Late st Contact Info) Description 02/08/2010 Abstract [facility] Endocrinology - [address] [id number] Angeles Mccormick MD PhD [address] [facility] [address] [place] [address] Social History Tobacco Use Types Packs/Day Years Used Date Smoking Tobacco: Never Assessed Sex and Gender Information Value Date Recorded Sex Assigned at Not on file Gender Identity Not on file Sexual Orientation Not on file documented as of this encounter Plan of Treatment Not on file documented as of this encounter Visit Diagnoses Not on filedocumented in this encounter Historical Medications * This list may reflect changes made after this encounter. Medication Sig Dispensed Refills Start Date End Date ACETAMINOPHEN (TYLENOL ORAL) Take by mouth as needed. tiotropium (SPIRIVA WITH HANDIHALER) 18 mcg inhalation capsule Inhale 18 mcg as directed daily. added in this encounter
--- OUTSIDE RECORDS SUMMARY | 2024-02-19 11:26 | XMS_ITS | Encounter Summary ---
Author Organization [facility] Address [address] [place] [address] Care Team Providers Care Buyer Assistant Name Role Phone Hawk Miller MD Primary Care Provider [phone] Reason for Visit * Reason Comments Goiter New Patient Encounter Details Date Type Department Care Team (Latest Contact Info) Description 02/02/2011 13:00 EDT Office Visit [facility] Endocrinology - [address] [address] Angelina Munoz MD PhD [address] [place] [address] [place] [phone] Galactorrhea female (Primary Dx); Thyroid nodule Social History Tobacco Use Types Packs/Day Years Used Date Smoking Tobacco: Never Assessed Sex and Gender Information Value Date Recorded Sex Assigned at Not on file Gender Identity Not on file Sexual Orientation Not on file documented as of this encounter Last Filed Vital Signs Vital Sign Reading Time Taken Comments Blood Pressure 98/66 02/02/2011 1301 EDT Pulse 80 02/02/2011 1301 EDT Temperature - - Respiratory Rate - - Oxygen Saturation - - Inhaled Oxygen Concentration - - Weight 80.3 kg (177 lb) 02/02/2011 1301 EDT Height 164.5 cm (5' 4.75) 02/02/2011 1301 EDT Body Mass Index 29.68 02/02/2011 1301 EDT documented in this encounter Patient Instructions * Patient Instructions* Angelina Munoz MD - 02/02/2011 13:33 EDT A: This woman had a thyroid nodule 3 yrs ago--and the size is not greater, and in fact it may be slightly smaller after the bx. The bx was benign and unless the area grows rapidly (particularly > 4 cm) or obstructive symptoms arise (Monica's test was negative today), she does not need surgery. As for the breast discharge, this can occur with severe hyothyroidism which was ruled out by her recent blood test or hyperprolactinemia or could be due to normal levels of hormone, but nipple stimulation. I don't see that she is on any medication that would cause hyperprolactinemia. P:1) RTC 1 yr for check 2) Get prolactin level when able. Do in AM. documented in this encounter Progress Notes * Angelina Munoz MD - 02/02/2011 5533 EDT This 50 year old woman is seen in the Endcrine clinic for follow up of a rt thyroid nodule 2.7cm . It was bx here :CYTOLOGIC DIAGNOSIS: Thyroid, right, ultrasound-guided fine needle aspiration: - Benign thyroid nodule. See comment. COMMENT: The specimen consists of bland-appearing follicular cells present predominantly in macrofollicular sheets. There is abundant watery colloid present in the background. Several of the aspirate smears show numerous histiocytes and debris, suggesting a component of cystic degeneration. (Dr. Maier)/lgk Denies dysphagia, occ hoarseness, no diarrhea or constip,no muscle cramping. Appetite is down and wt is stable. Smokes cigs. Notes nipple discharge bilat, used to be milky 2-3 yrs ago, now charcoal-colored. Notes that at times the nodule seems larger than other times. Feels pressure or burning/pruritis in breast, squeezes nipple and gets discharge. Recent mammogram was read as benign findings 2 wks ago. Menses-not done--can have intervals of 6 months between menses cycle. TSH was 1.59 in Nov, 2010. BP 98/66 Pulse 80 Ht 164.5 cm (64.75) Wt 80.287 kg (177 lb) BMI 29.68 kg/m2 LMP 01/25/2011 Neck: Palpable non-fixed nodule at about 2.5 cm. Breasts: gurrola nipple discharge elicited by pt. No bruits. Lungs are clear. Heart is regular without murmur. No leg edema, signs of mild-moderate varicose veins. Reflexes are not delayed. A: This woman had a thyroid nodule 3 yrs ago--and the size is not greater, and in fact it may be slightly smaller after the bx. Prior to bx, this was 27 x 27 x 29 mm. On the U/SD today it is a partially solid and cystic lesion at 2.25x1.77x2.95 cm. The bx was benign and unless the area grows rapidly (particularly > 4 cm) or obstructive symptoms arise (Monica's test was negative today), she does not need surgery. As for the breast discharge, this can occur with severe hyothyroidism which was ruled out by her recent blood test or hyperprolactinemia or could be due to normal levels of hormone, but nipple stimulation. I don't see that she is on any medication that would cause hyperprolactinemia. This is unlikely related to menopause as low estrogen states would not allow galactorrhea. P:1) RTC 1 yr for check 2) Get prolactin level when able. Do in AM. 3) Consider smoking cessation due to chronic cough. documented in this encounter Miscellaneous Notes * Scanned Note-Null - Electronics Manufacturer, Scan - 02/02/2011 1517 EDTAssociated Order(s): RADIOLOGY - SCANNED documented in this encounter Plan of Treatment Not on file documented as of this encounter Procedures Procedure Name Priority Date/Time Associated Diagnosis Comments RADIOLOGY - SCANNED 02/02/2011 1 5:17 EDT END[facility] CLINIC US THYROID Routine 02/02/2011 Thyroid nodule documented in this encounter Results * RADIOLOGY - SCANNED (02/02/2011 15:17 EDT) Anatomical Region Laterality Modality Other 02/02/2011 15:1 7 EDT Narrative Procedure Note Electronics Manufacturer, Scan - 02/02/2011 15:17 EDT Scan Electronics Manufacturer IMG OTHER IMAGING OR DERABLES * ENDOCRINE CLINIC US THYROID (02/02/2011) Anatomical Region Laterality Modality Other Narrative 02/02/2011 Utilizing a Sonosite System, a biplanar B-mode ultrasound was performed of the thyroid and neck structures. ??The right lobe of the thyroid is replaced by a well demarcated nodule of 2.25x1.77x2.95 centimeters. ??The left lobe of the thyroid measures 1.23x1.5x3.58 centimeters. ??The isthmus of the gland is not thickened. ??The echotexture of the gland is midly heterogenous on the left. ??There are two nodules in the gland, as described on the rt and a small 0.26 cm lesion mid-left. ??There is no lymphadenopathy identified. Impression: ??Stable partly cystic-solid nodule, 2.9 cm. Interpreted by: ANGELINA MUNOZ MD 02/02/2011 13:49 Angelina Munoz MD PhD IMG US ORDERABLES documented in this encounter Visit Diagnoses Diagnosis Galactorrhea female- Primary Galactorrhea associated with childbirth, unspecified as to episode of care Thyroid nodule Nontoxic uninodular goiter documented in this encounter Historical Medications * This list may reflect changes made after this encounter. Medication Sig Dispensed Refills Start Date End Date cyclobenzaprine (FLEXERIL) 10 mg tablet Take 10 mg by mouth at bedtime. 02/02/2011 added in this encounter Care Teams Buyer Assistant Relationship Specialty Start Date End Date Hawk Milelr MD [address] [place] [id number] PCP - General 02/01/11 documented as of this encounter
--- OUTSIDE RECORDS SUMMARY | 2024-02-19 11:26 | XMS_ITS | Encounter Summary ---
Author Organization [facility] Address [address] [place] [address] Care Team Providers Care Immigration Paralegal Name Role Phone Hawk Miller MD Primary Care Provider [phone] Encounter Details Date Type Department Care Team (Late st Contact Info) Description 04/06/2020 Lab Requisition [facility] Pathology & Laboratory Medicine - [address] [address] Priti Salmeron MD [address] [place], [place] [phone] Encounter for other general examination Social History Tobacco Use Types Packs/Day Years Used Date Smoking Tobacco: Never Assessed Sex and Gender Information Value Date Recorded Sex Assigned at Not on file Gender Identity Not on file Sexual Orientation Not on file documented as of this encounter Plan of Treatment Not on file documented as of this encounter Procedures Procedure Name Priority Date/Time Associated Diagnosis Comments SURGICAL PATHOLOGY Today 04/05/2020 13 :28 EDT Encounter for other general examination documented in this encounter Results * SURGICAL PATHOLOGY (04/05/2020 13:28 EDT) Final Diagnosis A. STOMACH, BIOPSY: - Antral mucosa with reactive (chemical) gastropathy. - Negative for Helicobacter pylori microorganisms on H&E stained sections. B. COLON, 35 CM, POLYP, BIOPSY: - Tubular adenoma. 04/06/2020 17:19 [facility] Attestation By the signature below, the attending physician certifies that they have 1) personally conducted a gross and/or microscopic examination of the described specimen(s), and/or personally interpreted the results of laboratory testing of the described specimen(s), and 2) personally rendered or confirmed the above diagnosis. 04/06/2020 17:19 [facility] at 1719 Clinical History Dysphagia; Colon cancer screening 04/06/2020 17:19 [facility] Gross Description A. Received in formalin labelled with proper patient identification (initials C, L) and 1. Gastric Bx's are 2 hood-brown tissues (0.2 x 0.2 x 0.1 cm and 0.3 x 0.3 x 0.2 cm). Submitted in toto in A1. B. Received in formalin labelled with proper patient identification (initials C, L) and 2. Colon polyp 35 cm are 2 hood-brown tissue fragments (0.2 x 0.2 x 0.1 cm and 0.3 x 0.2 x 0.2 cm). Submitted in toto in B1. Christina Lopez 04/06/2020 8:37 04/06/2020 17:19 [facility] Performing Lab [facility] 04/06/2020 17:19 [facility] Scanned Images 04/06/2020 17:19 [facility] Tissue STOMACH STRUCTURE / Unknown 04/05/2020 13:28 EDT 04/06/2020 7:40 EDT Tissue specimen (specimen) POLYP OF COLON / Unknown 04/05/2020 13:28 EDT 04/06/2020 7:40 EDT Priti Salmeron MD PATHOLOGY ORDERABLES [facility] [address] [place] [address] documented in this encounter Visit Diagnoses Diagnosis Encounter for other general examination documented in this encounter Care Teams Immigration Paralegal Relationship Specialty Start Date End Date Hawk Miller MD [address] [place] [address] PCP - General 02/01/11 documented as of this encounter
--- OUTSIDE RECORDS SUMMARY | 2024-02-19 11:26 | XMS_ITS | Encounter Summary ---
Author Organization [facility] Address [address] [place] [address] Care Team Providers Care Ring Spinner Name Role Phone Unavailable Primary Care Provider Unavailabl e Encounter Details Date Type Department Care Team (Late st Contact Info) Description 01/28/2004 Results Only [facility] - Maple conversion [address] [place] [address] Edmundo Walker, [place]ARDEN [address] [place], [place] [address] Social History Tobacco Use Types Packs/Day Years Used Date Smoking Tobacco: Never Assessed Sex and Gender Information Value Date Recorded Sex Assigned at Not on file Gender Identity Not on file Sexual Orientation Not on file documented as of this encounter Plan of Treatment Not on file documented as of this encounter Procedures Procedure Name Priority Date/Time Associated Diagnosis Comments CYTOPATHOLOGY Routine 01/28/2004 0:00 EDT documented in this encounter Results * CYTOPATHOLOGY (01/28/2004 0:00 EDT) Pathology Report: CYTOPATHOLOGY REPORT Reports generated via electronic interface contain original data; however they are lacking the format of the original report. Caution should be taken when reading/interpreti ng unformatted reports. Name: ? KAREN MORALES ? Accession #: ? [id number] : ? 1960 (Age: 43) ??F ?Collect Date: ? 01/28/2004 Location: ? [facility] ? Receive Date: ? 02/02/2004 Provider: ?EDMUNDO WALKER PR[place] WARDEN Copy to: ? Specimen/Source: ?ThinPrep Pap Test, Cervix/Endocervix Last Menstrual Period: ? 01/07/2004 Previous Gynecologic Pathology: ? Yes: abn pap Other: ? Additional clinical information: previous tubal preg HPVA - HPV testing requested if ASC-US on the current ThinPrep Pap test. ? SPECIMEN ADEQUACY ? Satisfactory for Evaluation - transformation zone component absent GENERAL CATEGORIZATION ? Negative for Intraepithelial Lesion or Malignancy ? Document reviewed and electronically signed by: ? CAPRICE Aldridge(ASCP) ? Report Date: ??02/08/2004 10:44 End of Report [facility] 01/28/2004 02/02/2004 Edmundo Walker NP PATHOLOGY ORDERABLES [facility] [address] [place] [address] documented in this encounter Visit Diagnoses Not on filedocumented in this encounter
--- OUTSIDE RECORDS SUMMARY | 2024-02-19 11:26 | XMS_ITS | Encounter Summary ---
Author Organization [facility] Address [address] [place] [address] Care Team Providers Care Auctioneer Automobile Name Role Phone Hawk Miller MD Primary Care Provider [phone] Encounter Details Date Type Department Care Team (Late st Contact Info) Description 03/29/2018 Historical Results Only [facility] - [facility] [place] [address] [place], [place] [address] Dee Monae NP [address] [facility] [address] [place], [place] [id number] Social History Tobacco Use Types Packs/Day Years Used Date Smoking Tobacco: Never Assessed Sex and Gender Information Value Date Recorded Sex Assigned at Not on file Gender Identity Not on file Sexual Orientation Not on file documented as of this encounter Plan of Treatment Not on file documented as of this encounter Procedures Procedure Name Priority Date/Time Associated Diagnosis Comments RHEUMATOID SCREEN/TITRE Routine 03/29/2018 12:40 EDT COMPLETE BLOOD COUNT WITH DIFFERENTIAL (AUTO) Routine 03/29/2018 12:40 EDT C REACTIVE PROTEIN Routine 03/29/2018 12 :40 EDT ANTI NUCLEAR AB ([place]), IFA Routine 03/29/2018 12:40 EDT documented in this encounter Results * ANTI NUCLEAR ANTIBODY (03/29/2018 12:40 EDT) Pathologist [facility] Antinuclear Ab, S <1:80 <1:80 04/01/2018 13:17 EDT [facility] 03/29/2018 12:4 0 EDT 03/29/2018 19:23 EDT Dee Monae NP IMMUNOLOGY AND SEROLOGY ORDERABLES [facility] * (ABNORMAL) C REACTIVE PROTEIN (03/29/2018 12:40 EDT) Pathologist [facility] C-Reactive Protein 45.4(H) <10.0 mg/L 03/29/2018 19:59 EDT [facility] 03/29/2018 12:4 0 EDT 03/29/2018 19:24 EDT Dee Monae NP CHEMISTRY & BLOOD GAS ORDERABLES [facility] * (ABNORMAL) COMPLETE BLOOD COUNT WITH DIFFERENTIAL (AUTO) (03/29/2018 12:40 EDT) Pathologist [facility] ABSOLUTE NEUTROPHIL COUN - [facility] 7.22(H) 1.7 - 7.0 10e3/ul 03/29/2018 19:39 EDT [facility] BASO # - [facility] 0.05 0.0 - 0.3 10e3/uL 03/29/2018 19:39 EDT [facility] BASO % - [facility] 0 0 - 2 % 03/29/2018 19:39 EDT [facility] EOS # - [facility] 0.38 0.05 - 0.5 10e3/uL 03/29/2018 19:39 EDT [facility] EOS % - [facility] 3 0 - 5 % 03/29/2018 19:39 EDT [facility] GRAN % - [facility] 62 40 - 80 % 03/29/2018 19:39 EDT [facility] HEMATOCRIT - [facility] 46.6 34.0 - 47.0 % 03/29/2018 19:39 [facility] HEMOGLOBIN - [facility] 15.5 11.2 - 15.7 g/dl 03/29/2018 19:39 [facility] IG# - [facility] 0.05 0 - 0.07 10e3/uL 03/29/2018 19:39 [facility] IG% - [facility] 0.4 0 - 0.9 % 03/29/2018 19:39 [facility] LYMPH # - [facility] 2.81 0.9 - 2.9 10e3/uL 03/29/2018 19:39 [facility] LYMPH% - [facility] 24 20 - 40 % 03/29/2018 19:39 [facility] MEAN CORPUSCULAR HGB - [facility] 36.0(H) 26 - 34 pg 03/29/2018 19:39 [facility] MEAN CORPUSCULAR HGB CONC - [facility] 33.3 31 - 36 g/dL 03/29/2018 19:39 [facility] MEAN CELL VOLUME - [facility] 108.1(H) 77 - 100 fl 03/29/2018 19:39 [facility] MONO # - [facility] 1.11(H) 0.3 - 0.9 10e3/uL 03/29/2018 19:39 [facility] MONO% - [facility] 10 0 - 12 % 03/29/2018 19:39 [facility] PLATELET COUNT 274 150 - 400 10e3/ul 03/29/2018 19:39 [facility] RED BLOOD COUNT - [facility] 4.31 3.8 - 5.2 10e6/ul 03/29/2018 19:39 [facility] RED CELL DISTRI WIDTH - [facility] 13.9 11.8 - 15.6 % 03/29/2018 19:39 [facility] WHITE BLOOD COUNT - [facility] 11.6(H) 3.5 - 10.5 10e3/ul 03/29/2018 19:39 [facility] 03/29/2018 12:4 0 EDT 03/29/2018 19:24 EDT Dee Monae STUDENT OFFICER HEMATOLOGY & PF4 ORDERABLES [facility] * RHEUMATOID SCREEN/TITRE - [facility] (03/29/2018 12:40 EDT) RHEUMATOID FACTOR SCREEN - [facility] NEG NEG 03/29/2018 20:01 EDT [facility] 03/29/2018 12:4 0 EDT 03/29/2018 19:24 EDT Dee Monae STUDENT OFFICER CHEMISTRY & BLOOD GAS ORDERABLES Performing Organization Address City[facility] Co de Phone Number [facility] documented in this encounter Visit Diagnoses Not on filedocumented in this encounter Care Teams Auctioneer Automobile Relationship Specialty Start Date End Date Hawk Miller MD [address] [place] [id number] PCP - General 02/01/11 documented as of this encounter
--- OUTSIDE RECORDS SUMMARY | 2024-02-19 11:26 | XMS_ITS | Encounter Summary ---
Author Organization [facility] Address [address] [place] [address] Care Team Providers Care Director Of Placement Name Role Phone Unavailable Primary Care Provider Unavailabl e Encounter Details Date Type Department Care Team (Late st Contact Info) Description 03/15/2008 Before PRISM Converted Visit (Maple) [facility] - Maple conversion [address] [place] [address] Kelby Dumont MD [address] [place] [address] Social History Tobacco Use Types Packs/Day Years Used Date Smoking Tobacco: Never Assessed Sex and Gender Information Value Date Recorded Sex Assigned at Not on file Gender Identity Not on file Sexual Orientation Not on file documented as of this encounter Plan of Treatment Not on file documented as of this encounter Procedures Procedure Name Priority Date/Time Associated Diagnosis Comments SURGICAL PATHOLOGY Routine 03/15/2008 0:00 EDT documented in this encounter Results * SURGICAL PATHOLOGY (03/15/2008 0:00 EDT) Pathology Report: SURGICAL PATHOLOGY REPORT ? Reports generated via electronic interface contain original data; ? however they are lacking the format of the original report. ? Caution should be taken when reading/interpreti ng unformatted reports. ? Name: ? CORROW, KAREN S ? Accession #: ? [id number] ? : ? 1960 (Age: 47) ??F ? Collect Date: ? 03/15/2008 ? Location: ? [facility] ? Receive Date: ? 03/15/2008 ? Provider: KELBY DUMONT MD ? Copy to: VIOLETTE D FINE MD ? Final Pathologic Diagnosis: ? A. ?Colon, sigmoid, biopsy: ? 1. ?Tubular adenoma. ? B. ?Colon, rectum, 10 cm, biopsies: ? 1. ?Fragments of tubular adenoma(s). ? 2. ? Cauterized fragment, probable hyperplastic polyp. ? Document reviewed and electronically signed by: ? Hilton Akers MD ? Report ??Date: 2008 16:33 ? By the signature above, the attending physician certifies that he/she has ? personally conducted a gross and/or microscopic examination of the described ? specimens and rendered or confirmed the above diagnosis. ? Specimen(s) Received: ? A. ?Sigmoid bx (#1) ? B. ? Rectum 10 cm bx (#2) ? Clinical History: ? Rectal bleeding, FOB, intermittent diarrhea ? Gross Description: ? Received in Kapt[employer] Audio[employer]'s solution labelled Corrow and sigmoid biopsy is a single 0.3 x 0.2 x 0.2 cm pink-hood irregular soft tissue. ??Submitted in toto in (A). ? Received in Kapt[employer] Audio[employer]'s solution labelled Corrow and rectum 10 cm are six ? pink-hood irregular soft tissues ranging from 0.2 x 0.2 x 0.2 cm to 0.5 x 0.3 x ?? 0.2 cm. Submitted in toto in (B). ??(L. Bañuelos)/lgk ? End of Report ? [facility] 03/15/2008 03/15/2008 18: 56 EDT Kelby Dumont MD PATHOLOGY ORDERABLE S Performing Organization Address City/State/[facility] Co de Phone Number [facility] [address] [place] [address] documented in this encounter Visit Diagnoses Not on filedocumented in this encounter
--- OUTSIDE RECORDS SUMMARY | 2024-02-19 11:26 | XMS_ITS | Encounter Summary ---
Author Organization [facility] Address [address] [place] [address] Care Team Providers Care Hardening Machine Operator Helper Name Role Phone Unavailable Primary Care Provider Unavailabl e Encounter Details Date Type Department Care Team (Late st Contact Info) Description 02/06/2001 Results Only [facility] - Maple conversion [address] [place] [address] Pj Taylor FNP [address] [place], [place] [id number] Social History Tobacco Use Types Packs/Day Years Used Date Smoking Tobacco: Never Assessed Sex and Gender Information Value Date Recorded Sex Assigned at Not on file Gender Identity Not on file Sexual Orientation Not on file documented as of this encounter Plan of Treatment Not on file documented as of this encounter Procedures Procedure Name Priority Date/Time Associated Diagnosis Comments CYTOPATHOLOGY Routine 02/06/2001 0:00 EDT documented in this encounter Results * CYTOPATHOLOGY (02/06/2001 0:00 EDT) Pathology Report: CYTOPATHOLOGY REPORT Reports generated via electronic interface contain original data; however they are lacking the format of the original report. Caution should be taken when reading/interpreti ng unformatted reports. Name: ? KAREN MORALES ? Accession #: ? [id number] : ? 1960 (Age: 40) ??F ?Collect Date: ? 02/06/2001 Location: ? [facility] ? Receive Date: ? 02/10/2001 Provider: ?PJ DUGGANP Copy to: ? Specimen/Source: ?ThinPrep Pap Test, Cervix/Endocervix Last Menstrual Period: ? 01/26/01 Other: ? Additional clinical information: Tubal surgery ? SPECIMEN ADEQUACY ? Satisfactory for evaluation. GENERAL CATEGORIZATION ? Within Normal Limits ? Document reviewed and electronically signed by: ? Karlee Contreras, ??SCT(ASCP) ? Report Date: ??02/12/2001 07:00 End of Report [facility] 02/06/2001 02/10/2001 Pj DUGGANP PATHOLOGY ORDERABLES [facility] [address] [place] [address] documented in this encounter Visit Diagnoses Not on filedocumented in this encounter
--- OUTSIDE RECORDS SUMMARY | 2024-02-19 11:26 | XMS_ITS | Encounter Summary ---
Author Organization [facility] Address [address] [place] [address] Care Team Providers Care Curtain Supervisor Name Role Phone Unavailable Primary Care Provider Unavailabl e Encounter Details Date Type Department Care Team (Late st Contact Info) Description 12/22/2010 Results Only [facility] Laboratory Services - [facility] ([facility]) [address] [place] [address] Ghazala Andersen, ORQUIDEA [address] [place] [phone] Social History Tobacco Use Types Packs/Day Years Used Date Smoking Tobacco: Never Assessed Sex and Gender Information Value Date Recorded Sex Assigned at Not on file Gender Identity Not on file Sexual Orientation Not on file documented as of this encounter Plan of Treatment Not on file documented as of this encounter Procedures Procedure Name Priority Date/Time Associated Diagnosis Comments PAP TEST- RESULT ONLY Routine 12/22/2010 0:00 EDT documented in this encounter Results * PAP TEST- RESULT ONLY (12/22/2010 0:00 EDT) Pathology Report: CYTOPATHOLOGY REPORT ? Reports generated via electronic interface contain original data; ? however they are lacking the format of the original report. ? Caution should be taken when reading/interpreti ng unformatted reports. ? Name: ? CORROW, KAREN S ? Accession #: ? [id number] ? : ? 1960 (Age: 50) ??F ?Collect Date: ? 12/22/2010 ? Location: ? [facility] ? Receive Date: ? 12/26/2010 ? Provider: ?GHAZALA BAHENA ? Copy to: ? Specimen/Source: ?Pap Test, Cervix/Endocervix, ThinPrep Imaging System ? with manual evaluation ? Last Menstrual Period: ? 5/1/11 ? SPECIMEN ADEQUACY ? Satisfactory for Evaluation ? - transformation zone component present ? GENERAL CATEGORIZATION ? Negative for Intraepithelial Lesion or Malignancy ? Document reviewed and electronically signed by: ? Gale Haynes, SCT(ASCP) ? Report Date: ??01/01/2011 11:41 ? End of Report ? [facility] 12/22/2010 12/26/2010 Ghazala Andersen PA-C PATHOLOGY VINNY GAGE Performing Organization Address City/State/[facility] Co de Phone Number DESI CUEVAS [address] [place] [address] documented in this encounter Visit Diagnoses Not on filedocumented in this encounter
--- OUTSIDE RECORDS SUMMARY | 2024-02-19 11:26 | XMS_ITS | Encounter Summary ---
Author Organization [facility] Address [address] [place] [address] Care Team Providers Care Pocket Setter Lockstitch Name Role Phone Hawk Miller MD Primary Care Provider [phone] Encounter Details Date Type Department Care Team (Late st Contact Info) Description 04/22/2020 Lab Requisition [facility] Pathology & Laboratory Medicine - [address] [id number] Outr Resulting Lab, Provider Social History Tobacco [...] Procedure Name Priority Date/Time Associated Diagnosis Comments ZZCOVID-19 TEST [facility] PCR Today 04/22/2020 15:35 EDT COVID-19 TESTING Routine 04/22/2020 15:3 5 EDT documented in this encounter Results * COVID-19 TEST [facility] PCR (04/22/2020 15:35 EDT) Swab ENTIRE NASOPHARYNX / Unknown 04/22/2020 15:35 EDT 04/22/2020 20:40 EDT Provider Outr Resulting Lab MICROBIOLOGY - GENERAL ORDERABLES Performing Organization Address [facility] Co de Phone Number [facility] [address] [place] [address] * COVID-19 TESTING (04/22/2020 15:35 EDT) COVID-19 rt-PCR Result Negative Negative 04/23/2020 2:06 EDT [facility] Comment: This test has not been FDA cleared or approved. This test has been authorized by FDA under an EUA for use by authorized laboratories. This test has been authorized only for detection of nucleic acid from 2019-nCoV, not for any other viruses or pathogens. This test is only authorized for the duration of the declaration that circumstances exist justifying the authorization of emergency use of in vitro diagnostic tests for detection and/or diagnosis of 2019-nCoV under section 564(b)(1) of Act, 21 U.S.C ?? 360bbb-3(b) (1), unless the authorization is terminated or revoked sooner. Negative results do not preclude 2019-nCoV infection and should not be used as the sole basis for treatment or other patient management decisions. Negative results must be combined with clinical observations, patient history, and epidemiological information. Performed on the [employer] Fusion instrument Performing Lab [facility] [facility] 04/23/2020 2:06 EDT [facility] Swab 04/22/2020 15:3 5 EDT 04/22/2020 20:40 EDT Provider Outr Resulting Lab MICROBIOLOGY - GENERAL ORDERABLES Performing Organization Address City/[facility]/ZIP Co de Phone Number [facility] [address] [place] [address] documented in this encounter Visit Diagnoses Not on filedocumented in this encounter Care Teams Pocket Setter Lockstitch Relationship Specialty Start Date End Date Hawk Miller MD [address] [place] [address] PCP - General 02/01/11 documented as of this encounter
--- OUTSIDE RECORDS SUMMARY | 2024-02-19 11:26 | XMS_ITS | Encounter Summary ---
Author Organization [facility] Address [address] [place] [address] Care Team Providers Care Refinisher Name Role Phone Unavailable Primary Care Provider Unavailabl e Encounter Details Date Type Department Care Team (Latest Contact Info) Description 05/25/2008 12:07 EDT Hospital Encounter [facility] conversion [address] [place] [address] Angelina Munoz MD PhD [address] [place] [address] [place] [phone] Discharge Disposition: Auto Discharge Social History Tobacco Use Types Packs/Day Years Used Date Smoking Tobacco: Never Assessed Sex and Gender Information Value Date Recorded Sex Assigned at Not on file Gender Identity Not on file Sexual Orientation Not on file documented as of this encounter Discharge Disposition Disposition Code Departure Means Destination Auto Discharge documented in this encounter Plan of Treatment Not on file documented as of this encounter Procedures Procedure Name Priority Date/Time Associated Diagnosis Comments T3, TOTAL Routine 05/25/2008 13:47 EDT TSH Routine 05/25/2008 13:47 EDT T4 FREE Routine 05/25/2008 13:47 EDT CYTOPATHOLOGY Routine 05/25/2008 0:00 EDT documented in this encounter Results * TSH (05/25/2008 13:47 EDT) TSH 2.63 0.35 - 5.00 uIU/mL [facility] 05/25/2008 13:4 7 EDT 05/25/2008 13:48 EDT Angelina Munoz MD PhD CHEMISTRY & BLOOD GAS ORDERABLES Performing Organization Address [facility] Phone Number [facility] [address] [place] [address] * T3, TOTAL (05/25/2008 13:47 EDT) T3, Total 132 60 - 181 ng/dL [facility] 05/25/2008 13:4 7 EDT 05/25/2008 13:48 EDT Angelina Munoz MD PhD CHEMISTRY & BLOOD GAS ORDERABLES Performing Organization Address [facility] Phone Number [facility] [address] [place] [address] * T4 FREE (05/25/2008 13:47 EDT) Free T4 1.1 0.8 - 1.8 ng/dL [facility] 05/25/2008 13:4 7 EDT 05/25/2008 13:48 EDT Angelina Munoz MD PhD CHEMISTRY & BLOOD GAS ORDERABLES Performing Organization Address [facility] Phone Number [facility] [address] [place] [address] * CYTOPATHOLOGY (05/25/2008 0:00 EDT) Pathology Report: CYTOPATHOLOGY REPORT ? Reports generated via electronic interface contain original data; ? however they are lacking the format of the original report. ? Caution should be taken when reading/interpreti ng unformatted reports. ? Name: ? CORROW, KAREN S ? Accession #: ? [id number] ? : ? 1960 (Age: 48) ??F ?Collect Date: ? 05/25/2008 ? Location: ? [facility] ? Receive Date: ? 05/26/2008 ? Provider: ? ANGELINA MUNOZ MD ? Copy to: ? Specimen Type: ? Thyroid, Fine Needle Aspiration ? Clinical History: ? 2.7cm thyroid nodule. ??Non-diag bx by others 03/05 ([id number]). ??Clinical ?? diagnosis code: 241.0 ? Gross Description: ? 4 fixed prepared slides, 4 air dried prepared slides, and 1 tube of Cytolyt were received and processed by selective cellular enhancement technique. ? CYTOLOGIC DIAGNOSIS: ? Thyroid, right, ultrasound-guided fine needle aspiration: ? - Benign thyroid nodule. ??See comment. ? COMMENT: ? The specimen consists of bland-appearing follicular cells present ? predominantly in macrofollicular sheets. ??There is abundant watery colloid ? present in the background. ??Several of the aspirate smears show numerous ? histiocytes and debris, suggesting a component of cystic degeneration. ??(Dr. ? Darrion)/lgk ? Document reviewed and electronically signed by: ? Wisam Maier, ? Report Date: ??05/27/2008 16:39 ? By the signature above, the attending physician certifies that he/she has ? personally conducted a gross and/or microscopic examination of the described ? specimens and rendered or confirmed the above diagnosis. ? End of Report ? [facility] 05/25/2008 05/26/2008 8:1 4 EDT Angelina Munoz MD PhD PATHOLOGY ORDERAB LES [facility] [address] [place] [address] documented in this encounter Visit Diagnoses Not on filedocumented in this encounter
--- OUTSIDE RECORDS SUMMARY | 2024-02-19 11:26 | XMS_ITS | Encounter Summary ---
Author Organization [facility] Address [address] [place] [address] Care Team Providers Care Radiochemical Technician Name Role Phone Unavailable Primary Care Provider Unavailabl e Encounter Details Date Type Department Care Team (Late st Contact Info) Description 02/27/2008 Before PRISM Converted Visit (Maple) [facility] conversion [address] [place] [address] Kelby Dumont MD [address] [place] [address] Social History Tobacco Use Types Packs/Day Years Used Date Smoking Tobacco: Never Assessed Sex and Gender Information Value Date Recorded Sex Assigned at Not on file Gender Identity Not on file Sexual Orientation Not on file documented as of this encounter Plan of Treatment Not on file documented as of this encounter Procedures Procedure Name Priority Date/Time Associated Diagnosis Comments CYTOPATHOLOGY Routine 02/27/2008 0:00 EDT documented in this encounter Results * CYTOPATHOLOGY (02/27/2008 0:00 EDT) Pathology Report: CYTOPATHOLOGY REPORT ? Reports generated via electronic interface contain original data; ? however they are lacking the format of the original report. ? Caution should be taken when reading/interpreti ng unformatted reports. ? Name: ? CORROW, KAREN S ? Accession #: ? [id number] ? : ? 1960 (Age: 47) ??F ?Collect Date: ? 02/27/2008 ? Location: ? [facility] ? Receive Date: ? 03/02/2008 ? Provider: ? KELBY DUMONT MD ? Copy to: ?PJ AB[facility]ALK CUT[facility] ? Specimen Type: ? Thyroid, Fine Needle Aspiration, Right ? Clinical History: ? Palpable mass right thyroid. ??Clinically euthyroid. ??Fax results to ? [phone] ? Gross Description: ? One vial of Cytolyt was received and processed by selective cellular ? enhancement technique. ? CYTOLOGIC DIAGNOSIS: ? Thyroid, right, fine needle aspiration: ? - Hemosiderin-laden macrophages and amorphous debris present. ??See comment. ? COMMENT: ? The specimen consists of hemosiderin-laden macrophages and amorphous ? debris. ??No follicular cells are identified. ??The specimen is considered ? non-diagnostic in a patient with a thyroid nodule. Clinical correlation and ? resampling is recommended, if indicated. ??(Dr. Medeiros)/mpl ? Document reviewed and electronically signed by: ? James Meza MD ? Report Date: ??03/02/2008 16:50 ? By the signature above, the attending physician certifies that he/she has ? personally conducted a gross and/or microscopic examination of the described ? specimens and rendered or confirmed the above diagnosis. ? End of Report ? [facility] 02/27/2008 03/02/2008 7:4 2 EDT Kelby Dumont MD PATHOLOGY ORDERABLE S [facility] [address] [place] [address] documented in this encounter Visit Diagnoses Not on filedocumented in this encounter
--- OUTSIDE RECORDS SUMMARY | 2024-02-19 11:26 | XMS_ITS | Encounter Summary ---
Author Organization [facility] Address [address] [place] [address] Care Team Providers Care Yard Specialist Name Role Phone Unavailable Primary Care Provider Unavailabl e Encounter Details Date Type Department Care Team (Late st Contact Info) Description 05/25/2008 Before PRISM Converted Visit (Maple) [facility] - [facility] conversion [address] [place] [address] Angeles Mccormick MD PhD [address] [place] [address] [place] [phone] Social History Tobacco Use Types Packs/Day Years Used Date Smoking Tobacco: Never Assessed Sex and Gender Information Value Date Recorded Sex Assigned at Not on file Gender Identity Not on file Sexual Orientation Not on file documented as of this encounter Consult Notes * Angeles Mccormick MD - 02/17/2009 2321 EDT DIVISION OF ENDOCRINOLOGY CONSULTATION - 05/25/2008 May 25, 2008 Kelby Eli M.D. [address] [place] [address] [place] [address] Eli: Problem: Right thyroid nodule. A. Abnormal thyroid functions. Ms. Ramos is a 48-year-old woman who was sent to the endocrine clinic by Dr. Eli for furtherevaluation and possible treatment of abnormal thyroid anatomy. Ms. Ramos states that overall her health has been good. She has had no history of head and neck irradiation, not aware of any thyroid problem in the past, but was found to have this thyroid nodule. The nodule was biopsied by Dr. Eli in February but just cystic contents were obtained. They did not see any follicular cells and therefore they could not give a specific diagnosis. She then had a thyroid scan. This was done with technetium and it showed diminished activity in the upper pole of the right side. The rest of the thyroid was unremarkable. She did have thyroid functions taken in March which showed a TSH of 0.07 with a free T4 in the normal range at 1.95. These were done [facility]. She has never been on thyroidmedicine. She denies difficulty with swallowing or hoarseness, no change in bowel habits. 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 There is a very strong family historyfor diabetes, hypertension and colon cancer. She does smoke cigarettes and has maybe 10 alcoholic drinks per week. She states that her doctor has screened her for diabetes and hypertension, and she has been fine to date. She is allergic to sulfa. She takes: Spiriva. 2. Tylenol as needed. exam today, she is 5 feet 5 inches, weighs 186 pounds, blood pressure 112/80 with a pulse of 80. BMI is 31. She does have a palpable nodule in the right upper pole. This is not fixed. It seems a little firm and seems to measure at least 2 cm. We then did an ultrasound to locate this for biopsy and the nodule is partially cystic, partially solid and seems to measure 27 x 27 x 29 mm. Impression: This could be a colloid nodule or degenerating follicular adenoma. In rare cases this can be a well differentiated follicular carcinoma. Because of this, she is sent here for re-biopsy. Thus after consent was obtained in writing with risks and benefits of the procedure outlined, passes were made with andwithout the syringe noonan into the cystic and then also into the solid areas of the lesion with different passes. Some of the passes into the cystic lesion did lead to drainage of brown colored fluid. She tolerated the procedure well without any complication. She was given postbiopsy instructions and if she had trouble speaking, swallow or breathing to go to the emergency room. She can take Advil or Tylenol for any pain, to avoid aspirin to decrease the risk of any bleeding. Plan: Will await results of cytological examination. 2. If suspicious cells are seen, we would recommend surgical evaluation and removal. 3. The point of doing the biopsy is this helps determine extent of surgery, whether a lobectomy would be enough if there is a benign nodule that she wants removed versus a total thyroidectomy if thyroid cancer is seen. Sincerely, 05-31-08: Thyroid, right, ultrasound-guided fine needle aspiration: - Benign thyroid nodule. See comment. COMMENT: The specimen consists of bland-appearing follicular cells present predominantly in macrofollicular sheets. There is abundant watery colloid present in the background. Several of the aspirate smears show numerous histiocytes and debris, suggesting a component of cystic degeneration. (Dr. Maier)/lgk 05/25/2008 13:47 T4, Free 1.1 ng/dL 0.8-1.8 Final * 05/25/2008 13:47 T3, Total 132 ng/dL 60-181 Final * 05/25/2008 13:47 TSH 2.63 uIU/m... 0.35-5.00 Final * No sign of hyper- or hypothyroidism. Could have debulking surgery if uncomfortable--but given benign features, could have lobectomy. Thyroid hormone is not that good at changing the size of partly cystic lesions, and would probably not change the nodule. Signed by Angeles Mccormick MD,PhD 06/04/2008 15:00 Angeles Mccormick MD,PhD - Angeles Mccormick MD,PhD - [facility] Job ID: [id number] Doc ID: [id number] cc: MD Miranda Mccoy MD Sharon D Fine, MD documented in this encounter Plan of Treatment Not on file documented as of this encounter Visit Diagnoses Not on filedocumented in this encounter
== END 2024-02-19 11:08 | disposition home or self-care (01) ==
LOC: ER 11:21
PROVIDERS: Emergency Provider Registered Nurse Emergency; PCP Internal Medicine
DX: J32.9 Chronic sinusitis, unspecified (principal); H61.21 Impacted cerumen, right ear; H57.11 Ocular pain, right eye; H10.31 Unspecified acute conjunctivitis, right eye; R68.84 Jaw pain
CPT/HCPCS: 99283

== ENCOUNTER 2024-03-23 12:34 | Outpatient (REF) | payer OTHER, MEDICARE, SELFPAY ==
--- OUTSIDE RECORDS SUMMARY | 2024-03-23 12:37 | XMS_ITS | Encounter Summary ---
Author Organization [facility] Address [address] [place] [address] Care Team Providers Care Cyber Defense Forensics Analyst Name Role Phone Hawk Miller MD Primary Care Provider [phone] Encounter Details Date Type Department Care Team (Late st Contact Info) Description 04/25/2020 Lab Requisition [facility] Pathology & Laboratory Medicine - [address] [id number] Outr Resulting Lab, Provider Social History Tobacco [...] Salmonella PCR Negative Negative 05/02/2020 13:10 EDT [facility] Shigella/Enteroin vasive E. coli Negative Negative 05/02/2020 13:10 EDT [facility] HN LAB CAMPYLOBACTER PCR Negative Negative 05/02/2020 13:10 EDT [facility] Shiga Toxin PCR Negative Negative 0 13:10 EDT [facility] Feces SPECIMEN FROM RECTUM / Unknown 04/25/2020 8:25 EDT 04/25/2020 17:19 EDT Narrative [facility] - 05/02/2020 13:10 EDT No Yersinia enterocolitica or Vibrio species recovered. ? Testing performed by [facility] via culture method. PCR test will be credited. Provider Outr Resulting Lab MICROBIOLOGY - GENERAL ORDERABLES [facility] [address] [place] [address] documented in this encounter Visit Diagnoses Not on filedocumented in this encounter Care Teams Cyber Defense Forensics Analyst Relationship Specialty Start Date End Date Hawk Miller MD [address] [place] [id number] PCP - General 02/01/11 documented as of this encounter
--- OUTSIDE RECORDS SUMMARY | 2024-03-23 12:37 | XMS_ITS | Encounter Summary ---
Author Organization [facility] Address [address] [place] [address] Care Team Providers Care Diet Aide Name Role Phone Hawk Miller MD Primary Care Provider [phone] Encounter Details Date Type Department Care Team (Late st Contact Info) Description 03/29/2018 Historical Results Only [facility] - [address] [place] [address] [place], [place] [address] Dee Monae NP [address] [facility] [address] [place], [place] [id number] Social History Tobacco Use Types Packs/Day Years [...] ANTI NUCLEAR ANTIBODY (03/29/2018 12:40 EDT) Pathologist [facility] Antinuclear Ab, S <1:80 <1:80 04/01/2018 13:17 EDT [facility] 03/29/2018 12:4 0 EDT 03/29/2018 19:23 EDT Dee Monae NP IMMUNOLOGY AND SEROLOGY ORDERABLES [facility] * (ABNORMAL) C REACTIVE PROTEIN (03/29/2018 12:40 EDT) Pathologist [facility] C-Reactive Protein 45.4(H) <10.0 mg/L 03/29/2018 19:59 EDT [facility] 03/29/2018 12:4 0 EDT 03/29/2018 19:24 EDT Dee Monae NP CHEMISTRY & BLOOD GAS ORDERABLES [facility] * (ABNORMAL) COMPLETE BLOOD COUNT WITH DIFFERENTIAL (AUTO) (03/29/2018 12:40 EDT) Pathologist [facility] ABSOLUTE NEUTROPHIL COUN - [facility] 7.22(H) 1.7 - 7.0 10e3/ul 03/29/2018 19:39 EDT [facility] BASO # - [facility] 0.05 0.0 - 0.3 10e3/uL 03/29/2018 19:39 EDT [facility] BASO % - [facility] 0 0 - 2 % 03/29/2018 19:39 EDT [facility] EOS # - [facility] 0.38 0.05 - 0.5 10e3/uL 03/29/2018 19:39 EDT [facility] EOS % - [facility] 3 0 - 5 % 03/29/2018 19:39 EDT [facility] GRAN % - [facility] 62 40 - 80 % 03/29/2018 19:39 EDT [facility] HEMATOCRIT - [facility] 46.6 34.0 - 47.0 % 03/29/2018 19:39 [facility] HEMOGLOBIN - [facility] 15.5 11.2 - 15.7 g/dl 03/29/2018 19:39 [facility] IG# - CV 0.05 0 - 0.07 10e3/uL 03/29/2018 19:39 [facility] IG% - [facility] 0.4 0 - 0.9 % 03/29/2018 19:39 [facility] LYMPH # - CV 2.81 0.9 - 2.9 10e3/uL 03/29/2018 19:39 [facility] LYMPH% - [facility] 24 20 - 40 % 03/29/2018 19:39 [facility] MEAN CORPUSCULAR HGB - [facility] 36.0(H) 26 - 34 pg 03/29/2018 19:39 [facility] MEAN CORPUSCULAR HGB CONC - [facility] 33.3 31 - 36 g/dL 03/29/2018 19:39 [facility] MEAN CELL VOLUME - [facility] 108.1(H) 77 - 100 fl 03/29/2018 19:39 [facility] MONO # - [facility] 1.11(H) 0.3 - 0.9 10e3/uL 03/29/2018 19:39 [facility] MONO% - [facility] 10 0 - 12 % 03/29/2018 19:39 [facility] PLATELET COUNT 274 150 - 400 10e3/ul 03/29/2018 19:39 [facility] RED BLOOD COUNT - [facility] 4.31 3.8 - 5.2 10e6/ul 03/29/2018 19:39 [facility] RED CELL DISTRI WIDTH - [facility] 13.9 11.8 - 15.6 % 03/29/2018 19:39 [facility] WHITE BLOOD COUNT - [facility] 11.6(H) 3.5 - 10.5 10e3/ul 03/29/2018 19:39 [facility] 03/29/2018 12:4 0 EDT 03/29/2018 19:24 EDT Dee Monae BUSINESS RELATIONSHIP MANAGER HEMATOLOGY & PF4 ORDERABLES [facility] * RHEUMATOID SCREEN/TITRE - [facility] (03/29/2018 12:40 EDT) RHEUMATOID FACTOR SCREEN - [facility] NEG NEG 03/29/2018 20:01 EDT [facility] 03/29/2018 12:4 0 EDT 03/29/2018 19:24 EDT Dee Monae BUSINESS RELATIONSHIP MANAGER CHEMISTRY & BLOOD GAS ORDERABLES Performing Organization Address City[facility] Co de Phone Number [facility] documented in this encounter Visit Diagnoses Not on filedocumented in this encounter Care Teams Diet Aide Relationship Specialty Start Date End Date Hawk Miller MD [address] [place] [phone] PCP - General 02/01/11 documented as of this encounter
--- OUTSIDE RECORDS SUMMARY | 2024-03-23 12:37 | XMS_ITS | Encounter Summary ---
Author Organization [facility] Address [address] [place] [address] Care Team Providers Care Research Hydraulic Engineer Name Role Phone Unavailable Primary Care Provider Unavailabl e Encounter Details Date Type Department Care Team (Late st Contact Info) Description 12/22/2010 Results Only [facility] Laboratory Services - [facility] [address] [place] [address] Ghazala Andersen, ORQUIDEA [address] [place] [phone] Social History Tobacco Use Types Packs/Day Years [...] CORROW, KAREN S ? Accession #: ? [id number] ? : ? 1960 (Age: 50) ??F [...] PA-C PATHOLOGY VINNY GAGE Performing Organization Address City/State/[facility] Co de Phone Number [facility] [address] [place] [address] documented in this encounter Visit Diagnoses Not on filedocumented in this encounter
--- OUTSIDE RECORDS SUMMARY | 2024-03-23 12:37 | XMS_ITS | Encounter Summary ---
Author Organization [facility] Address [address] [place] [address] Care Team Providers Care Screen And Cyclone Repairer Name Role Phone Hawk Miller MD Primary Care Provider [phone] Encounter Details Date Type Department Care Team (Late st Contact Info) Description 04/01/2020 Lab Requisition [facility] Pathology & Laboratory Medicine - [facility] [address] [place], [place] [address] Outr Resulting Lab, Provider Social History Tobacco [...] rt-PCR Result NEGATIVE Negative 04/03/2020 15:18 EDT [facility] Comment: 2019-novel Coronavirus (2019-nCoV) [...] in accordance with CLIA regulations, College of [employer] Of [place] Pathologists (CAP) guidelines (Oct 15, 2019), and FDA guidance (Sep 26, 2019). This test is only for use under the Food and Drug Administration's Emergency Use Authorization. Swab ENTIRE NASOPHARYNX / Unknown 04/01/2020 9:27 EDT 04/01/2020 15:39 EDT Provider Outr Resulting Lab MICROBIOLOGY - GENERAL ORDERABLES [facility] [place], [place] * COVID-19 TESTING (04/01/2020 9:27 EDT) COVID-19 rt-PCR Result NEGATIVE Negative 04/03/2020 17:53 EDT [facility] Comment: 2019-novel Coronavirus (2019-nCoV) not [...] in accordance with CLIA regulations, College of Citizen Of [place] Pathologists (CAP) guidelines (Oct 15, 2019), and FDA guidance (Sep 26, 2019). This test is only for use under the Food and Drug Administration's Emergency Use Authorization. Performing Lab [facility] [place] 04/03/2020 17:53 EDT [facility] Swab 04/01/2020 9:27 EDT 04/01/2020 15:39 EDT Provider Outr Resulting Lab MICROBIOLOGY - GENERAL ORDERABLES [facility] [address] [place] [address] [facility] [place], [place] documented in this encounter Visit Diagnoses Not on filedocumented in this encounter Care Teams Screen And Cyclone Repairer Relationship Specialty Start Date End Date Hawk Miller MD [address] [place] [address] PCP - General 02/01/11 documented as of this encounter
--- OUTSIDE RECORDS SUMMARY | 2024-03-23 12:37 | XMS_ITS | Referral Summary ---
Author Organization [facility] Address [address] [place] [address] Care Team Providers Care Principal Network Engineer Name Role Phone Hawk Miller MD Primary Care Provider [phone] Allergies Active Allergy Reactions Criticality Noted Date [...] of Treatment Not on file Care Teams Principal Network Engineer Relationship Specialty Start Date End Date Hawk Miller MD [address] [place] [address] PCP - General 02/01/11
--- OUTSIDE RECORDS SUMMARY | 2024-03-23 12:37 | XMS_ITS | Encounter Summary ---
Author Organization [facility] Address [address] [place] [address] Care Team Providers Care 911 Telecommunicator Name Role Phone Hawk Miller MD Primary Care Provider [phone] Encounter Details Date Type Department Care Team (Late st Contact Info) Description 04/22/2020 Lab Requisition [facility] Pathology & Laboratory Medicine - [address] [address] Outr Resulting Lab, Provider Social History Tobacco [...] MICROBIOLOGY - GENERAL ORDERABLES Performing Organization Address [facility] Co de Phone Number [facility] [address] [place] [address] * COVID-19 TESTING (04/22/2020 15:35 EDT) COVID-19 rt-PCR Result Negative Negative 04/23/2020 2:06 EDT [facility] Comment: This test has not [...] history, and epidemiological information. Performed on the Therma-Waveher Fusion instrument Performing Lab [facility] 04/23/2020 2:06 EDT [facility] Swab 04/22/2020 15:3 5 EDT 04/22/2020 20:40 EDT Provider Outr Resulting Lab MICROBIOLOGY - GENERAL ORDERABLES Performing Organization Address City/[facility]/ZIP Co de Phone Number [facility] [address] [place] [address] documented in this encounter Visit Diagnoses Not on filedocumented in this encounter Care Teams 911 Telecommunicator Relationship Specialty Start Date End Date Hawk Miller MD [address] [place] [address] PCP - General 02/01/11 documented as of this encounter
--- OUTSIDE RECORDS SUMMARY | 2024-03-23 12:37 | XMS_ITS | Encounter Summary ---
Author Organization [facility] Address [address] [place] [address] Care Team Providers Care Aviation Technician Name Role Phone Hawk Miller MD Primary Care Provider [phone] Encounter Details Date Type Department Care Team (Late st Contact Info) Description 05/17/2020 Lab Requisition [facility] Pathology & Laboratory Medicine - [facility] [address] [place], [place] [address] Outr Resulting Lab, Provider Social History Tobacco [...] 201 - 352 mg/dL 05/18/2020 10:35 EDT [facility] Blood VENOUS BLOOD / Unknown 05/16/2020 8:05 EDT 05/17/2020 16:58 EDT Provider Outr Resulting Lab CHEMISTRY & BLOOD GAS ORDERABLES [facility] [address] [place] [address] documented in this encounter Visit Diagnoses Not on filedocumented in this encounter Care Teams Aviation Technician Relationship Specialty Start Date End Date Hawk Miller MD [address] [place] [address] PCP - General 02/01/11 documented as of this encounter
--- OUTSIDE RECORDS SUMMARY | 2024-03-23 12:37 | XMS_ITS | Encounter Summary ---
Author Organization [facility] [place] [address] [place] [address] Care Team Providers Care Golf Starter And Ranger Name Role Phone Miranda Pulido MD Primary Care Provider [phone] Encounter Details Date Type Department Care Team (Late st Contact Info) Description 04/25/2020 Ancillary Procedure [place] [phone] Hawk Miller MD [address] [place], [place] [address] Social History Tobacco Use Types Packs/Day Years [...] MR Spine (04/25/2020 12:00 AM EDT) Narrative [facility] - 04/29/2020 12:01 PM EDT This exam is auto-finalizing. It's purpose is for storage only. Hawk Miller MD IMG FILM LIBRARY ORD ERABLES [place], [place] documented in this encounter Visit Diagnoses Not on filedocumented in this encounter Care Teams Golf Starter And Ranger Relationship Specialty Start Date End Date Miranda Pulido MD [address] [place], [place] [address] PCP - General 06/20/10 04/27/20 documented as of this encounter
--- OUTSIDE RECORDS SUMMARY | 2024-03-23 12:37 | XMS_ITS | Clinical Summary ---
[place] [address] Care Team Providers Care Front Line Leader Name Role Phone Hawk Miller MD Primary Care Provider [phone] Social History Tobacco Use Types Packs/Day Years [...] 2) 2011 Advance Directive 2016 Covid-19 Vaccine (2022- season) 2023 Influenza (Flu) vaccine (1 o f 1 - Influenza standard series) 03/29/2024 Care Teams Front Line Leader Relationship Specialty Start Date End Date Hawk Miller MD [address] [place] [address] PCP - General Internal Medicine 04/28/20
--- OUTSIDE RECORDS SUMMARY | 2024-03-23 12:37 | XMS_ITS | Clinical Summary ---
Author Organization [facility] Address [address] [place] [address] Care Team Providers Care Housekeeper [facility] Name Role Phone Hawk Miller MD Primary Care Provider [phone] Allergies Active Allergy Reactions Criticality Noted Date [...] ( - 2022-24 season) 2023 Care Teams [facility] Relationship Specialty Start Date End Date Hawk Miller MD [address] [place] [address] PCP - General 02/01/11
--- OUTSIDE RECORDS SUMMARY | 2024-03-23 12:37 | XMS_ITS | Encounter Summary ---
Author Organization [facility] Address [address] [place] [address] Care Team Providers Care Forestry Farm Laborer Name Role Phone Hawk Miller MD Primary Care Provider Reason for Visit * Reason Comments Goiter New Patient Encounter Details Date Type Department Care Team (Latest Contact Info) Description 02/02/2011 13:00 EDT Office Visit [facility] Endocrinology - [address] [address] Angelina Munoz MD PhD [address] [place] [address] [place] [phone] Galactorrhea female (Primary Dx); Thyroid nodule [...] > 4 cm) or obstructive symptoms arise (Clarissa's test was negative today), she does not [...] Notes * Angelina Munoz MD - 02/02/2011 4463 EDT This 50 year old woman is [...] > 4 cm) or obstructive symptoms arise (Clarissa's test was negative today), she does not [...] encounter Miscellaneous Notes * Scanned Note-Null - Aluminum Polisher, Scan - 02/02/2011 1517 EDTAssociated Order(s): RADIOLOGY [...] 02/02/2011 15:1 7 EDT Narrative Procedure Note Aluminum Polisher, Scan - 02/02/2011 15:17 EDT Scan Aluminum Polisher IMG OTHER IMAGING OR DERABLES * ENDOCRINE [...] 02/02/2011 added in this encounter Care Teams Forestry Farm Laborer Relationship Specialty Start Date End Date Hawk Miller MD [address] [place] [address] PCP - General 02/01/11 documented as of this encounter
--- OUTSIDE RECORDS SUMMARY | 2024-03-23 12:37 | XMS_ITS | Encounter Summary ---
Author Organization [facility] Address [address] [place] [address] Care Team Providers Care Paper Stacker Name Role Phone Unavailable Primary Care Provider Unavailabl e Encounter Details Date Type Department Care Team (Late st Contact Info) Description 02/08/2010 Abstract [facility] Endocrinology - [address] [id number] Angeles Mccormick MD PhD [address] [facility] [address] [place] [address] Social History Tobacco Use Types [...]
--- OUTSIDE RECORDS SUMMARY | 2024-03-23 12:37 | XMS_ITS | Encounter Summary ---
Author Organization [facility] Address [address] [place] [address] Care Team Providers Care Flash Welder Name Role Phone Hawk Miller MD Primary Care Provider [phone] Encounter Details Date Type Department Care Team (Late st Contact Info) Description 04/06/2020 Lab Requisition [facility] Pathology & Laboratory Medicine - [address] [address] Priti Salmeron MD [address] [place], [place] [phone] Encounter for other general examination Social History [...] POLYP, BIOPSY: - Tubular adenoma. 04/06/2020 17:19 [facility] Attestation By the signature below, the attending physician certifies that they have 1) personally conducted a gross and/or microscopic examination of the described specimen(s), and/or personally interpreted the results of laboratory testing of the described specimen(s), and 2) personally rendered or confirmed the above diagnosis. 04/06/2020 17:19 [facility] at 1719 Clinical History Dysphagia; Colon cancer screening 04/06/2020 17:19 [facility] Gross Description A. Received [...] B1. Christina Lopez 04/06/2020 8:37 04/06/2020 17:19 [facility] Performing Lab [facility] 04/06/2020 17:19 [facility] Scanned Images 04/06/2020 17:19 [facility] Tissue STOMACH STRUCTURE / Unknown 04/05/2020 13:28 EDT 04/06/2020 7:40 EDT Tissue specimen (specimen) POLYP OF COLON / Unknown 04/05/2020 13:28 EDT 04/06/2020 7:40 EDT Priti Salmeron MD PATHOLOGY ORDERABLES [facility] [address] [place] [address] documented in this encounter Visit Diagnoses Diagnosis Encounter for other general examination documented in this encounter Care Teams Flash Welder Relationship Specialty Start Date End Date Hawk Miller MD [address] [place] [address] PCP - General 02/01/11 documented as of this encounter
--- OUTSIDE RECORDS SUMMARY | 2024-03-23 12:37 | XMS_ITS | Encounter Summary ---
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.] 05/24/2020 Yue Sánchez MD [address] [place] [address] RE: Karen Ramos : [address] Sánchez: Thank you for referring your patient Karen Ramos to the Neurosurgery Clinic at [facility] for evaluation of lumbar disc herniation. As you know, Ms. Ramos is a pleasant 60 y.o. female who has a 45 year history of chronic back pain. She was recently admitted to [facility] for COPD exacerbation and complained of bowel [...] minutes. Sincerely, Simón Henning PA-C, [place] Physician Architect In Training [facility] Department of Neurosurgery [address] [place] [address] CC: Hawk Miller MD CC: Yue Sánchez MD [address] [place] [address] This message is confidential, intended only for [...] myelopathy documented in this encounter Care Teams Fire Protection Inspector Relationship Specialty Start Date End Date Hawk Miller MD [address] [place] [address] PCP - General Internal Medicine 04/28/20 documented as of this encounter
--- OUTSIDE RECORDS SUMMARY | 2024-03-23 12:38 | XMS_ITS | Encounter Summary ---
Author Organization [facility] Address [address] [place] [address] Care Team Providers Care Dumper Bulk System Name Role Phone Unavailable Primary Care Provider Unavailabl e Encounter Details Date Type Department Care Team (Late st Contact Info) Description 03/15/2008 Before PRISM Converted Visit (Maple) [facility] - Maple conversion [address] [place] [address] Kelby Dumont MD [address] [place] [address] Social History Tobacco Use Types Packs/Day Years [...] CORROW, KAREN S ? Accession #: ? [id number] ? : ? 1960 (Age: 47) ??F [...] diarrhea ? Gross Description: ? Received in Floxxe's solution labelled Corrow and sigmoid biopsy is a single 0.3 x 0.2 x 0.2 cm pink-hood irregular soft tissue. ??Submitted in toto in (A). ? Received in Floxxe's solution labelled Corrow and rectum 10 cm are six ? pink-hood irregular soft tissues ranging from 0.2 x 0.2 x 0.2 cm to 0.5 x 0.3 x ?? 0.2 cm. Submitted in toto in (B). ??(L. Bañuelos)/lgk ? End of Report ? [facility] 03/15/2008 03/15/2008 18: 56 EDT Kelby Dumont MD PATHOLOGY ORDERABLE S Performing Organization Address City/State/[facility] Co de Phone Number [facility] [address] [place] [address] documented in this encounter Visit Diagnoses Not on filedocumented in this encounter
--- OUTSIDE RECORDS SUMMARY | 2024-03-23 12:38 | XMS_ITS | Encounter Summary ---
Author Organization [facility] Address [address] [place] [address] Care Team Providers Care Fire Pilot Name Role Phone Unavailable Primary Care Provider Unavailabl e Encounter Details Date Type Department Care Team (Late st Contact Info) Description 02/27/2008 Before PRISM Converted Visit (Maple) [facility] - Maple conversion [address] [place] [address] Kelby Dumont MD [address] [place] [address] Social History Tobacco Use Types Packs/Day Years [...] CORROW, KAREN S ? Accession #: ? [id number] ? : ? 1960 (Age: 47) ??F ?Collect Date: ? 02/27/2008 ? Location: ? [facility] ? Receive Date: ? 03/02/2008 ? Provider: ? KELBY DUMONT MD ? Copy to: ?PJ ABAD DIRECTOR OF STRATEGIC INITIATIVES ? Specimen Type: ? Thyroid, Fine Needle Aspiration, Right ? Clinical History: ? Palpable mass right thyroid. ??Clinically euthyroid. ??Fax results to ? [phone] ? Gross Description: ? One vial of [...] ? resampling is recommended, if indicated. ??(Dr. Medeiors)/mpl ? Document reviewed and electronically signed by: [...] PATHOLOGY ORDERABLE S [facility] [address] [place] [address] documented in this encounter Visit Diagnoses Not on filedocumented in this encounter
--- OUTSIDE RECORDS SUMMARY | 2024-03-23 12:38 | XMS_ITS | Encounter Summary ---
Author Organization [facility] Address [address] [place] [address] Care Team Providers Care Clinical Engineering Director Name Role Phone Unavailable Primary Care Provider Unavailabl e Encounter Details Date Type Department Care Team (Latest Contact Info) Description 05/25/2008 12:07 EDT Hospital Encounter [facility] conversion [address] [place] [address] Angelina Munoz MD PhD [address] [place] [address] [place] [phone] Discharge Disposition: Auto Discharge Social History [...] & BLOOD GAS ORDERABLES Performing Organization Address [facility] Phone Number [facility] [address] [place] [address] * T3, TOTAL (05/25/2008 13:47 EDT) T3, Total 132 60 - 181 ng/dL [facility] 05/25/2008 13:4 7 EDT 05/25/2008 13:48 EDT Angelina Munoz MD PhD CHEMISTRY & BLOOD GAS ORDERABLES Performing Organization Address [facility] Phone Number [facility] [address] [place] [address] * T4 FREE (05/25/2008 13:47 EDT) Free T4 1.1 0.8 - 1.8 ng/dL [facility] 05/25/2008 13:4 7 EDT 05/25/2008 13:48 EDT Angelina Munoz MD PhD CHEMISTRY & BLOOD GAS ORDERABLES Performing Organization Address [facility] Phone Number [facility] [address] [place] [address] * CYTOPATHOLOGY (05/25/2008 0:00 EDT) Pathology Report: CYTOPATHOLOGY REPORT ? Reports generated via electronic interface contain original data; ? however they are lacking the format of the original report. ? Caution should be taken when reading/interpreti ng unformatted reports. ? Name: ? CORROW, KAREN S ? Accession #: ? [id number] ? : ? 1960 (Age: 48) ??F ?Collect Date: ? 05/25/2008 ? Location: ? [facility] ? Receive Date: ? 05/26/2008 ? Provider: ? ANGELINA MUNOZ MD ? Copy to: ? Specimen Type: ? Thyroid, Fine Needle Aspiration ? Clinical History: ? 2.7cm thyroid nodule. ??Non-diag bx by others 03/05 ([id number]). ??Clinical ?? diagnosis code: 241.0 ? Gross [...] PATHOLOGY ORDERAB LES [facility] [address] [place] [address] documented in this encounter Visit Diagnoses Not on filedocumented in this encounter
--- OUTSIDE RECORDS SUMMARY | 2024-03-23 12:38 | XMS_ITS | Encounter Summary ---
Author Organization [facility] Address [address] [place] [address] Care Team Providers Care Fur Dressing Supervisor Name Role Phone Unavailable Primary Care Provider Unavailabl e Encounter Details Date Type Department Care Team (Late st Contact Info) Description 02/06/2001 Results Only [facility] - Maple conversion [address] [place] [address] Pj Taylor FNP [address] [place], [place] [address] Social History Tobacco Use Types Packs/Day Years [...] ? KAREN MORALES ? Accession #: ? [id number] : ? 1960 (Age: 40) ??F ?Collect [...] Pj DUGGANP PATHOLOGY ORDERABLES [facility] [address] [place] [address] documented in this encounter Visit Diagnoses Not on filedocumented in this encounter
--- OUTSIDE RECORDS SUMMARY | 2024-03-23 12:38 | XMS_ITS | Encounter Summary ---
Author Organization [facility] Address [address] [place] [address] Care Team Providers Care Machine Adjuster Name Role Phone Unavailable Primary Care Provider Unavailabl e Encounter Details Date Type Department Care Team (Late st Contact Info) Description 12/31/2007 Results Only [facility] - Maple conversion [address] [place] [address] Pj Taylor FNP [address] [place], [place] [address] Social History Tobacco Use Types Packs/Day Years [...] ? KAREN MORALES ? Accession #: ? [id number] : ? 1960 (Age: 47) ??F ?Collect Date: ? 12/31/2007 Location: ? [facility] ? Receive Date: ? 01/01/2008 Provider: ?PJ TAYLOR CHILD PSYCHOLOGY TEACHER Copy to: ? Specimen/Source: ?ThinPrep Pap Test, Cervix/Endocervix, processed on [employer] ThinPrep Imaging System, with manual evaluation Last [...] Report [facility] 12/31/2007 01/01/2008 Pj Taylor CHILD PSYCHOLOGY TEACHER PATHOLOGY ORDERABLES [facility] [address] [place] [address] documented in this encounter Visit Diagnoses Not on filedocumented in this encounter
--- OUTSIDE RECORDS SUMMARY | 2024-03-23 12:38 | XMS_ITS | Encounter Summary ---
Author Organization [facility] Address [address] [place] [address] Care Team Providers Care House Wirer Name Role Phone Unavailable Primary Care Provider Unavailabl e Encounter Details Date Type Department Care Team (Late st Contact Info) Description 05/25/2008 Before PRISM Converted Visit (Maple) [facility] - Maple conversion [address] [place] [address] Angeles Mccormick MD PhD [address] [place] [address] [place] [phone] Social History Tobacco Use Types Packs/Day [...] 25, 2008 Kelby Eli M.D. [address] [place] [address] [place] [address] Eli: Problem: Right thyroid nodule. [...] normal range at 1.95. These were done [facility]. She has never been on thyroidmedicine. She [...] Angeles Mccormick MD,PhD - CARRIE Job ID: [id number] Doc ID: [id number] cc: MD Miranda Mccoy MD Sharon D Fine, MD documented in this encounter Plan of Treatment Not on file documented as of this encounter Visit Diagnoses Not on filedocumented in this encounter
--- OUTSIDE RECORDS SUMMARY | 2024-03-23 12:38 | XMS_ITS | Encounter Summary ---
Author Organization [facility] Address [address] [place] [address] Care Team Providers Care Bonding Supervisor Name Role Phone Unavailable Primary Care Provider Unavailabl e Encounter Details Date Type Department Care Team (Late st Contact Info) Description 01/28/2004 Results Only [facility] - Maple conversion [address] [place] [address] Edmundo Walker, UNEMPLOYMENT INSURANCE DIRECTOR [address] [place], [place] [address] Social History Tobacco Use Types Packs/Day Years [...] ? KAREN MORALES ? Accession #: ? [id number] : ? 1960 (Age: 43) ??F ?Collect Date: ? 01/28/2004 Location: ? [facility] ? Receive Date: ? 02/02/2004 Provider: ?EDMUNDO WALKER UNEMPLOYMENT INSURANCE DIRECTOR Copy to: ? Specimen/Source: ?ThinPrep Pap Test, [...] Walker NP PATHOLOGY ORDERABLES [facility] [address] [place] [address] documented in this encounter Visit Diagnoses Not on filedocumented in this encounter
[2024-03-23 14:31] LABS: Abs Immature Grans 0.03 10^3/uL (0.0-0.06); Absolute Basophil Count 0.09 10^3/uL (0.0-0.2); Absolute Eosinophil Count 0.44 10^3/uL (0.0-0.7); Absolute Lymphocyte Count 2.38 10^3/uL (1.2-3.4); Absolute Monocyte Count 1.06 10^3/uL (0.1-0.8); Absolute Neutrophil Count 6.72 10^3/uL (1.2-6.7); Basophils % 0.8 %; Eosinophils % 4.1 %; HCT 44.5 % (36.0-46.0); HGB 14.2 g/dL (11.2-15.7); Immature Grans % 0.3 %; Lymphocytes % 22.2 %; MCH 33.9 pg (27.0-33.0); MCHC 31.9 % (32.0-36.0); MCV 106 fL (80-95); MPV 11.1 fL (8.0-11.0); Monocytes % 9.9 %; Neutrophils % 62.7 %; Platelet Count 218 10^3/uL (130-400); RBC 4.19 10^6/uL (3.93-5.22); RDW 15.9 % (11.7-14.6); RDW-SD 62.4 fL; WBC 10.72 10^3/uL (4.4-10.8)
[2024-03-23 14:43] LABS: Diff Comment RBC Morph Reviewed
[2024-03-23 14:44] LABS: Macrocytosis 1+
[2024-03-23 14:50] LABS: Hemoglobin A1C 7.1 % (<5.7)
[2024-03-23 14:59] LABS: ALT 35 U/L (14-59); AST 28 U/L (15-37); Alkaline Phosphatase 147 U/L (46-116); BUN 8 mg/dL (7-18); Bilirubin, Total 1.11 mg/dL (0.2-1.0); CREATININE 0.7 mg/dL (0.55-1.02); Calcium 9.4 mg/dL (8.5-10.1); Chloride 101 mmol/L (98-107); Estimated GFR 97.12 (mL/min/1.73m2); Glucose 170 mg/dL (74-106); Potassium 4.3 mmol/L (3.5-5.1); Sodium 139 mmol/L (136-145); Total Protein 7.8 g/dL (6.4-8.2)
== END 2024-03-23 12:35 | disposition home or self-care (01) ==
LOC: NCHCN 12:34
PROVIDERS: PCP Internal Medicine; Visit Provider Family Medicine
DX: R73.03 Prediabetes (principal); D75.1 Secondary polycythemia; R60.0 Localized edema
CPT/HCPCS: 80053; 83036; 85025

== ENCOUNTER 2024-04-02 17:20 | Emergency (ER) | payer OTHER, MEDICARE, SELFPAY ==
[2024-04-02 17:23] VITALS: BP 113/67; PULSE 102; RESP 15; TEMP 37.3; O2SAT 82
--- OUTSIDE RECORDS SUMMARY | 2024-04-02 17:59 | XMS_ITS | Encounter Summary ---
Author Organization [facility] Address [address] [place] [address] Care Team Providers Care Rug Measurer Name Role Phone Hawk Miller MD Primary Care Provider [phone] Encounter Details Date Type Department Care Team (Late st Contact Info) Description 05/17/2020 Lab Requisition [facility] Pathology & Laboratory Medicine - [facility] [address] [place], [place] [address] Outr Resulting Lab, Provider Social History Tobacco [...] 201 - 352 mg/dL 05/18/2020 10:35 EDT [facility] Blood VENOUS BLOOD / Unknown 05/16/2020 8:05 EDT 05/17/2020 16:58 EDT Provider Outr Resulting Lab CHEMISTRY & BLOOD GAS ORDERABLES [facility] [address] [place] [address] documented in this encounter Visit Diagnoses Not on filedocumented in this encounter Care Teams Rug Measurer Relationship Specialty Start Date End Date Hawk Miller MD [address] [place] [address] PCP - General 02/01/11 documented as of this encounter
--- OUTSIDE RECORDS SUMMARY | 2024-04-02 17:59 | XMS_ITS | Encounter Summary ---
Author Organization [facility] Address [address] [place] [address] Care Team Providers Care Hatchery Helper Name Role Phone Unavailable Primary Care Provider Unavailabl e Encounter Details Date Type Department Care Team (Late st Contact Info) Description 05/25/2008 Before PRISM Converted Visit (Maple) [facility] - Maple conversion [address] [place] [address] Angeles Mccormick MD PhD [address] [place] [address] [place] [phone] Social History Tobacco Use Types Packs/Day [...] 25, 2008 Kelby Eli M.D. [address] [place] [address] [place] [address] Eli: Problem: Right thyroid nodule. [...] normal range at 1.95. These were done [facility]. She has never been on [...] Angeles Mccormick MD,PhD - CARRIE Job ID: [id number] Doc ID: [id number] cc: MD Miranda Mccoy MD Sharon D Fine, MD documented in this encounter Plan of Treatment Not on file documented as of this encounter Visit Diagnoses Not on filedocumented in this encounter
--- OUTSIDE RECORDS SUMMARY | 2024-04-02 17:59 | XMS_ITS | Encounter Summary ---
Author Organization [facility] Address [address] [place] [address] Care Team Providers Care Evaluation Advisor Name Role Phone Unavailable Primary Care Provider Unavailabl e Encounter Details Date Type Department Care Team (Late st Contact Info) Description 01/28/2004 Results Only [facility] - Maple conversion [address] [place] [address] Edmundo Walker, PASSPORT APPLICATION EXAMINER [address] [place], [place] [address] Social History Tobacco Use Types Packs/Day Years [...] ? KAREN MORALES ? Accession #: ? [id number] : ? 1960 (Age: 43) ??F ?Collect Date: ? 01/28/2004 Location: ? [facility] ? Receive Date: ? 02/02/2004 Provider: ?EDMUNDO WALKER PASSPORT APPLICATION EXAMINER Copy to: ? Specimen/Source: ?ThinPrep Pap Test, [...] Walker NP PATHOLOGY ORDERABLES [facility] [address] [place] [address] documented in this encounter Visit Diagnoses Not on filedocumented in this encounter
--- OUTSIDE RECORDS SUMMARY | 2024-04-02 17:59 | XMS_ITS | Encounter Summary ---
Author Organization [facility] Address [address] [place] [address] Care Team Providers Care Fastener Technologist Name Role Phone Unavailable Primary Care Provider Unavailabl e Encounter Details Date Type Department Care Team (Late st Contact Info) Description 12/31/2007 Results Only [facility] - Maple conversion [address] [place] [address] Pj Taylor FNP [address] [place], [place] [phone] Social History Tobacco Use Types Packs/Day Years [...] ? KAREN MORALES ? Accession #: ? [id number] : ? 1960 (Age: 47) ??F ?Collect Date: ? 12/31/2007 Location: ? [facility] ? Receive Date: ? 01/01/2008 Provider: ?PJ TAYLOR IP ATTORNEY Copy to: ? Specimen/Source: ?ThinPrep Pap Test, Cervix/Endocervix, processed on Media Matchmaker ThinPrep Imaging System, with manual evaluation Last [...] Report [facility] 12/31/2007 01/01/2008 Pj Taylor IP ATTORNEY PATHOLOGY ORDERABLES [facility] [address] [place] [address] documented in this encounter Visit Diagnoses Not on filedocumented in this encounter
--- OUTSIDE RECORDS SUMMARY | 2024-04-02 17:59 | XMS_ITS | Encounter Summary ---
Author Organization [facility] Address [address] [place] [address] Care Team Providers Care Telecommunication Engineer Name Role Phone Unavailable Primary Care Provider Unavailabl e Encounter Details Date Type Department Care Team (Late st Contact Info) Description 12/22/2010 Results Only [facility] Laboratory Services - [facility] ([facility] [address] [place] [address] Ghazala Andersen, ORQUIDEA [address] [place] [id number] Social History Tobacco Use Types Packs/Day Years [...] CORROW, KAREN S ? Accession #: ? [id number] ? : ? 1960 (Age: 50) ??F [...] PA-C PATHOLOGY VINNY GAGE Performing Organization Address City/State/[facility] Co de Phone Number [facility] [address] [place] [address] documented in this encounter Visit Diagnoses Not on filedocumented in this encounter
--- OUTSIDE RECORDS SUMMARY | 2024-04-02 17:59 | XMS_ITS | Encounter Summary ---
Author Organization [facility] Address [address] [place] [address] Care Team Providers Care Web Content & Social Media Manager Name Role Phone Unavailable Primary Care Provider Unavailabl e Encounter Details Date Type Department Care Team (Late st Contact Info) Description 02/27/2008 Before PRISM Converted Visit (Maple) [facility] - Maple conversion [address] [place] [address] Kelby Dumont MD [address] [place] [address] Social History Tobacco Use Types Packs/Day Years [...] CORROW, KAREN S ? Accession #: ? [id number] ? : ? 1960 (Age: 47) ??F ?Collect Date: ? 02/27/2008 ? Location: ? [facility] ? Receive Date: ? 03/02/2008 ? Provider: ? KELBY DUMONT MD ? Copy to: ?PJ ABAD OYSTERMAN ? Specimen Type: ? Thyroid, Fine Needle Aspiration, Right ? Clinical History: ? Palpable mass right thyroid. ??Clinically euthyroid. ??Fax results to ? [phone] ? Gross Description: ? One vial of [...] PATHOLOGY ORDERABLE S [facility] [address] [place] [address] documented in this encounter Visit Diagnoses Not on filedocumented in this encounter
--- OUTSIDE RECORDS SUMMARY | 2024-04-02 17:59 | XMS_ITS | Encounter Summary ---
Author Organization [facility] Address [address] [place] [address] Care Team Providers Care Pulpwood Buyer Name Role Phone Hawk Miller MD Primary Care Provider [phone] Encounter Details Date Type Department Care Team (Late st Contact Info) Description 03/29/2018 Historical Results Only [facility] - [facility] Lab - [place] [address] [place], [place] [address] Dee Monae NP [address] [facility] [address] [place], [place] [phone] Social History Tobacco Use Types Packs/Day Years [...] Ab, S <1:80 <1:80 04/01/2018 13:17 EDT [facility] 03/29/2018 12:4 0 EDT 03/29/2018 19:23 EDT Dee Monae NP IMMUNOLOGY AND SEROLOGY ORDERABLES [facility] * (ABNORMAL) C REACTIVE PROTEIN (03/29/2018 12:40 EDT) Pathologist [facility] C-Reactive Protein 45.4(H) <10.0 mg/L 03/29/2018 19:59 EDT [facility] 03/29/2018 12:4 0 EDT 03/29/2018 19:24 EDT Dee Monae NP CHEMISTRY & BLOOD GAS ORDERABLES [facility] * (ABNORMAL) COMPLETE BLOOD COUNT WITH DIFFERENTIAL (AUTO) (03/29/2018 12:40 EDT) Pathologist [facility] ABSOLUTE NEUTROPHIL COUN - [facility] 7.22(H) 1.7 - 7.0 10e3/ul 03/29/2018 19:39 EDT [facility] BASO # - [facility] 0.05 0.0 - 0.3 10e3/uL 03/29/2018 19:39 EDT [facility] BASO % - [facility] 0 0 - 2 % 03/29/2018 19:39 EDT [facility] EOS # - [facility] 0.38 0.05 - 0.5 10e3/uL 03/29/2018 19:39 EDT [facility] EOS % - [facility] 3 0 - 5 % 03/29/2018 19:39 EDT [facility] GRAN % - [facility] 62 40 - 80 % 03/29/2018 19:39 EDT [facility] HEMATOCRIT - [facility] 46.6 34.0 - 47.0 % 03/29/2018 19:39 [facility] HEMOGLOBIN - [facility] 15.5 11.2 - 15.7 g/dl 03/29/2018 19:39 [facility] IG# - CV 0.05 0 - 0.07 10e3/uL 03/29/2018 19:39 [facility] IG% - [facility] 0.4 0 - 0.9 % 03/29/2018 19:39 [facility] LYMPH # - CV 2.81 0.9 - 2.9 10e3/uL 03/29/2018 19:39 [facility] LYMPH% - [facility] 24 20 - 40 % 03/29/2018 19:39 [facility] MEAN CORPUSCULAR HGB - [facility] 36.0(H) 26 - 34 pg 03/29/2018 19:39 [facility] MEAN CORPUSCULAR HGB CONC - [facility] 33.3 31 - 36 g/dL 03/29/2018 19:39 [facility] MEAN CELL VOLUME - [facility] 108.1(H) 77 - 100 fl 03/29/2018 19:39 [facility] MONO # - [facility] 1.11(H) 0.3 - 0.9 10e3/uL 03/29/2018 19:39 [facility] MONO% - [facility] 10 0 - 12 % 03/29/2018 19:39 [facility] PLATELET COUNT 274 150 - 400 10e3/ul 03/29/2018 19:39 [facility] RED BLOOD COUNT - [facility] 4.31 3.8 - 5.2 10e6/ul 03/29/2018 19:39 [facility] RED CELL DISTRI WIDTH - [facility] 13.9 11.8 - 15.6 % 03/29/2018 19:39 [facility] WHITE BLOOD COUNT - [facility] 11.6(H) 3.5 - 10.5 10e3/ul 03/29/2018 19:39 [facility] 03/29/2018 12:4 0 EDT 03/29/2018 19:24 EDT Dee Monae INSTRUMENT AND CONTROL TECHNICIAN HEMATOLOGY & PF4 ORDERABLES [facility] * RHEUMATOID SCREEN/TITRE - [facility] (03/29/2018 12:40 EDT) RHEUMATOID FACTOR SCREEN - [facility] NEG NEG 03/29/2018 20:01 EDT [facility] 03/29/2018 12:4 0 EDT 03/29/2018 19:24 EDT Dee Monae INSTRUMENT AND CONTROL TECHNICIAN CHEMISTRY & BLOOD GAS ORDERABLES Performing Organization Address City/[facility] Co de Phone Number [facility] documented in this encounter Visit Diagnoses Not on filedocumented in this encounter Care Teams Pulpwood Buyer Relationship Specialty Start Date End Date Hawk Miller MD [address] [place] [address] PCP - General 02/01/11 documented as of this encounter
--- OUTSIDE RECORDS SUMMARY | 2024-04-02 17:59 | XMS_ITS | Encounter Summary ---
Author Organization [facility] Address [address] [place] [address] Care Team Providers Care Bicycle Repairman Name Role Phone Unavailable Primary Care Provider Unavailabl e Encounter Details Date Type Department Care Team (Late st Contact Info) Description 02/06/2001 Results Only [facility] - Maple conversion [address] [place] [address] Pj Taylor FNP [address] [place], [place] [id number] Social History Tobacco Use Types Packs/Day Years [...] ? KAREN MORALES ? Accession #: ? [id number] : ? 1960 (Age: 40) ??F ?Collect [...] Pj DUGGANP PATHOLOGY ORDERABLES [facility] [address] [place] [address] documented in this encounter Visit Diagnoses Not on filedocumented in this encounter
--- OUTSIDE RECORDS SUMMARY | 2024-04-02 17:59 | XMS_ITS | Encounter Summary ---
Author Organization [facility] Address [address] [place] [address] Care Team Providers Care Ring Maker Name Role Phone Unavailable Primary Care Provider Unavailabl e Encounter Details Date Type Department Care Team (Latest Contact Info) Description 05/25/2008 12:07 EDT Hospital Encounter [facility] conversion [address] [place] [address] Angelina Munoz MD PhD [address] [place] [address] [place] [phone] Discharge Disposition: Auto Discharge Social History [...] & BLOOD GAS ORDERABLES Performing Organization Address [facility] Phone Number [facility] [address] [place] [address] * T3, TOTAL (05/25/2008 13:47 EDT) T3, Total 132 60 - 181 ng/dL [facility] 05/25/2008 13:4 7 EDT 05/25/2008 13:48 EDT Angelina Munoz MD PhD CHEMISTRY & BLOOD GAS ORDERABLES Performing Organization Address [facility] Phone Number [facility] [address] [place] [address] * T4 FREE (05/25/2008 13:47 EDT) Free T4 1.1 0.8 - 1.8 ng/dL [facility] 05/25/2008 13:4 7 EDT 05/25/2008 13:48 EDT Angelina Munoz MD PhD CHEMISTRY & BLOOD GAS ORDERABLES Performing Organization Address [facility] Phone Number [facility] [address] [place] [address] * CYTOPATHOLOGY (05/25/2008 0:00 EDT) Pathology Report: CYTOPATHOLOGY REPORT ? Reports generated via electronic interface contain original data; ? however they are lacking the format of the original report. ? Caution should be taken when reading/interpreti ng unformatted reports. ? Name: ? CORROW, KAREN S ? Accession #: ? [id number] ? : ? 1960 (Age: 48) ??F ?Collect Date: ? 05/25/2008 ? Location: ? [facility] ? Receive Date: ? 05/26/2008 ? Provider: ? ANGELINA MUNOZ MD ? Copy to: ? Specimen Type: ? Thyroid, Fine Needle Aspiration ? Clinical History: ? 2.7cm thyroid nodule. ??Non-diag bx by others 03/05 ([id number]). ??Clinical ?? diagnosis code: 241.0 ? Gross [...] PATHOLOGY ORDERAB LES [facility] [address] [place] [address] documented in this encounter Visit Diagnoses Not on filedocumented in this encounter
--- OUTSIDE RECORDS SUMMARY | 2024-04-02 17:59 | XMS_ITS | Encounter Summary ---
Author Organization [facility] Address [address] [place] [address] Care Team Providers Care Advertising Display Rotator Name Role Phone Hawk Miller MD Primary Care Provider [phone] Encounter Details Date Type Department Care Team (Late st Contact Info) Description 04/01/2020 Lab Requisition [facility] Pathology & Laboratory Medicine - [facility] [address] [place], [place] [address] Outr Resulting Lab, Provider Social History Tobacco [...] rt-PCR Result NEGATIVE Negative 04/03/2020 15:18 EDT [facility] Comment: 2019-novel Coronavirus (2019-nCoV) [...] in accordance with CLIA regulations, College of [employer] (CAP) guidelines (Oct 15, 2019), and FDA guidance (Sep 26, 2019). This test is only for use under the Food and Drug Administration's Emergency Use Authorization. Swab ENTIRE NASOPHARYNX / Unknown 04/01/2020 9:27 EDT 04/01/2020 15:39 EDT Provider Outr Resulting Lab MICROBIOLOGY - GENERAL ORDERABLES [facility] [place], [place] * COVID-19 TESTING (04/01/2020 9:27 EDT) COVID-19 rt-PCR Result NEGATIVE Negative 04/03/2020 17:53 EDT [facility] Comment: 2019-novel Coronavirus (2019-nCoV) not [...] in accordance with CLIA regulations, College of [employer] Pathologists (CAP) guidelines (Oct 15, 2019), and FDA guidance (Sep 26, 2019). This test is only for use under the Food and Drug Administration's Emergency Use Authorization. Performing Lab [facility] 04/03/2020 17:53 EDT [facility] Swab 04/01/2020 9:27 EDT 04/01/2020 15:39 EDT Provider Outr Resulting Lab MICROBIOLOGY - GENERAL ORDERABLES [facility] [address] [place] [address] [facility] [place], [place] documented in this encounter Visit Diagnoses Not on filedocumented in this encounter Care Teams Advertising Display Rotator Relationship Specialty Start Date End Date Hawk Miller MD [address] [place] [address] PCP - General 02/01/11 documented as of this encounter
--- OUTSIDE RECORDS SUMMARY | 2024-04-02 17:59 | XMS_ITS | Encounter Summary ---
Author Organization [facility] [place] [address] Care Team Providers Care Client Services Vice President Name Role Phone Miranda Pulido MD Primary Care Provider [phone] Encounter Details Date Type Department Care Team (Late st Contact Info) Description 04/25/2020 Ancillary Procedure [place] [phone] Hawk Miller MD [address] [place], [place] [address] Social History Tobacco Use Types Packs/Day Years [...] MR Spine (04/25/2020 12:00 AM EDT) Narrative [facility] - 04/29/2020 12:01 PM EDT This exam is auto-finalizing. It's purpose is for storage only. Hawk Miller MD IMG FILM LIBRARY ORD ERABLES [place], [place] documented in this encounter Visit Diagnoses Not on filedocumented in this encounter Care Teams Client Services Vice President Relationship Specialty Start Date End Date Miranda Pulido MD [address] [place], [place] [address] PCP - General 06/20/10 04/27/20 documented as of this encounter
--- OUTSIDE RECORDS SUMMARY | 2024-04-02 17:59 | XMS_ITS | Clinical Summary ---
Author Organization [facility] Address [address] [place] [address] Care Team Providers Care Manager Chemical Name Role Phone Hawk Miller MD Primary Care Provider [phone] Allergies Active Allergy Reactions Criticality Noted Date [...] ( - 2022-24 season) 2023 Care Teams Manager Chemical Relationship Specialty Start Date End Date Hawk Miller MD [address] [place] [address] PCP - General 02/01/11
--- OUTSIDE RECORDS SUMMARY | 2024-04-02 17:59 | XMS_ITS | Encounter Summary ---
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 Neurosurgery [address] [place] [address] Referral ID Status Reason Start Date Expiration Date V isits Requested Visits Authorized [id number] Closed Consult, Test & Treat Connection [facility] PCP Updated and/or Approved 04/26/2020 04/26/2021 6 6 Encounter Details Date Type Department Care Team (Latest Contact Info) Description 05/24/2020 2:15 PM EDT TH Visit (TeleHealth) [place] [address] Simón Henning PA [facility] [place] [address] Lumbar disc herniation Social History [...] 05/24/2020 Yue Sánchez MD [address] [place] [address] RE: Karen Ramos : [address] Sánchez: Thank you for referring your patient Karen Ramos to the Neurosurgery Clinic at [facility] for evaluation of lumbar disc herniation. As you know, Ms. Ramos is a pleasant 60 y.o. female who has a 45 year history of chronic back pain. She was recently admitted to [facility] for COPD exacerbation and complained of bowel [...] minutes. Sincerely, Simón Henning PA-C, [place] Physician Electric Range Assembler [facility] Department of Neurosurgery [address] [place] [address] CC: Hawk Miller MD CC: Yue Sánchez MD [address] [place] [address] This message is confidential, intended only for [...] myelopathy documented in this encounter Care Teams Traffic Clerk Relationship Specialty Start Date End Date Hawk Miller MD [address] [place] [address] PCP - General Internal Medicine 04/28/20 documented as of this encounter
--- OUTSIDE RECORDS SUMMARY | 2024-04-02 17:59 | XMS_ITS | Encounter Summary ---
Author Organization [facility] Address [address] [place] [address] Care Team Providers Care Asp Web Developer Name Role Phone Unavailable Primary Care Provider Unavailabl e Encounter Details Date Type Department Care Team (Late st Contact Info) Description 02/08/2010 Abstract [facility] Endocrinology - [address] [phone] Angeles Mccormick MD PhD [address] [facility] [address] [place] [address] Social History Tobacco Use Types [...]
--- OUTSIDE RECORDS SUMMARY | 2024-04-02 17:59 | XMS_ITS | Encounter Summary ---
Author Organization [facility] Address [address] [place] [address] Care Team Providers Care Well Head Pumper Name Role Phone Hawk Miller MD Primary Care Provider [phone] Reason for Visit * Reason Comments Goiter New Patient Encounter Details Date Type Department Care Team (Latest Contact Info) Description 02/02/2011 13:00 EDT Office Visit [facility] Endocrinology - [address] [address] Angelina Munoz MD PhD [address] [place] [address] [place] [phone] Galactorrhea female (Primary Dx); Thyroid nodule [...] > 4 cm) or obstructive symptoms arise ([place]'s test was negative today), she does not [...] Notes * Angelina Munoz MD - 02/02/2011 4303 EDT This 50 year old woman is [...] encounter Miscellaneous Notes * Scanned Note-Null - Fertilizer Supervisor, Scan - 02/02/2011 1517 EDTAssociated Order(s): RADIOLOGY [...] 02/02/2011 15:1 7 EDT Narrative Procedure Note Fertilizer Supervisor, Scan - 02/02/2011 15:17 EDT Scan Fertilizer Supervisor IMG OTHER IMAGING OR DERABLES * ENDOCRINE [...] 02/02/2011 added in this encounter Care Teams Well Head Pumper Relationship Specialty Start Date End Date Hawk Miller MD [address] [place] [address] PCP - General 02/01/11 documented as of this encounter
--- OUTSIDE RECORDS SUMMARY | 2024-04-02 17:59 | XMS_ITS | Encounter Summary ---
Author Organization [facility] Address [address] [place] [address] Care Team Providers Care Well Service Floorperson Name Role Phone Unavailable Primary Care Provider Unavailabl e Encounter Details Date Type Department Care Team (Late st Contact Info) Description 03/15/2008 Before PRISM Converted Visit (Maple) [facility] - [facility] conversion [address] [place] [address] Kelby Dumont MD [address] [place] [address] Social History Tobacco Use Types Packs/Day Years [...] CORROW, KAREN S ? Accession #: ? [id number] ? : ? 1960 (Age: 47) ??F [...] diarrhea ? Gross Description: ? Received in [employer] K.K.e's solution labelled Corrow and sigmoid biopsy is a single 0.3 x 0.2 x 0.2 cm pink-hood irregular soft tissue. ??Submitted in toto in (A). ? Received in [employer] K.K.e's solution labelled Corrow and rectum 10 cm are six ? pink-hood irregular soft tissues ranging from 0.2 x 0.2 x 0.2 cm to 0.5 x 0.3 x ?? 0.2 cm. Submitted in toto in (B). ??(L. Bañuelos)/lgk ? End of Report ? [facility] 03/15/2008 03/15/2008 18: 56 EDT Kelby Dumont MD PATHOLOGY ORDERABLE S Performing Organization Address City/State/[facility] Co de Phone Number [facility] [address] [place] [address] documented in this encounter Visit Diagnoses Not on filedocumented in this encounter
--- OUTSIDE RECORDS SUMMARY | 2024-04-02 17:59 | XMS_ITS | Encounter Summary ---
Author Organization [facility] Address [address] [place] [address] Care Team Providers Care Juvenile Correctional Officer Name Role Phone Hawk Miller MD Primary Care Provider [phone] Encounter Details Date Type Department Care Team (Late st Contact Info) Description 04/25/2020 Lab Requisition [facility] Pathology & Laboratory Medicine - [address] [id number] Outr Resulting Lab, Provider Social History Tobacco [...] Salmonella PCR Negative Negative 05/02/2020 13:10 EDT [facility] Shigella/Enteroin vasive E. coli Negative Negative 05/02/2020 13:10 EDT [facility] HN LAB CAMPYLOBACTER PCR Negative Negative 05/02/2020 13:10 EDT [facility] Shiga Toxin PCR Negative Negative 0 13:10 EDT [facility] Feces SPECIMEN FROM RECTUM / Unknown 04/25/2020 8:25 EDT 04/25/2020 17:19 EDT Narrative [facility] - 05/02/2020 13:10 EDT No Yersinia enterocolitica or Vibrio species recovered. ? Testing performed by [facility] via culture method. PCR test will be credited. Provider Outr Resulting Lab MICROBIOLOGY - GENERAL ORDERABLES [facility] [address] [place] [address] documented in this encounter Visit Diagnoses Not on filedocumented in this encounter Care Teams Juvenile Correctional Officer Relationship Specialty Start Date End Date Hawk Miller MD [address] [place] [id number] PCP - General 02/01/11 documented as of this encounter
--- OUTSIDE RECORDS SUMMARY | 2024-04-02 17:59 | XMS_ITS | Encounter Summary ---
Author Organization [facility] Address [address] [place] [address] Care Team Providers Care Personal Injury Paralegal Name Role Phone Hawk Miller MD Primary Care Provider [phone] Encounter Details Date Type Department Care Team (Late st Contact Info) Description 04/22/2020 Lab Requisition [facility] Pathology & Laboratory Medicine - [address] [id number] Outr Resulting Lab, Provider Social History Tobacco [...] MICROBIOLOGY - GENERAL ORDERABLES Performing Organization Address [facility] Co de Phone Number [facility] [address] [place] [address] * COVID-19 TESTING (04/22/2020 15:35 EDT) COVID-19 rt-PCR Result Negative Negative 04/23/2020 2:06 EDT [facility] Comment: This test has not [...] history, and epidemiological information. Performed on the [employer] Fusion instrument Performing Lab [facility] Lab 04/23/2020 2:06 EDT [facility] Swab 04/22/2020 15:3 5 EDT 04/22/2020 20:40 EDT Provider Outr Resulting Lab MICROBIOLOGY - GENERAL ORDERABLES Performing Organization Address City/[facility]/ZIP Co de Phone Number [facility] [address] [place] [address] documented in this encounter Visit Diagnoses Not on filedocumented in this encounter Care Teams Personal Injury Paralegal Relationship Specialty Start Date End Date Hawk Miller MD [address] [place] [address] PCP - General 02/01/11 documented as of this encounter
--- OUTSIDE RECORDS SUMMARY | 2024-04-02 17:59 | XMS_ITS | Clinical Summary ---
[place] [address] Care Team Providers Care Director Of Materials Management Name Role Phone Hawk Miller MD Primary [...] - Influenza standard series) 03/29/2024 Care Teams Director Of Materials Management Relationship Specialty Start Date End Date Hawk Miller MD [address] [place] [address] PCP - General Internal Medicine 04/28/20
--- OUTSIDE RECORDS SUMMARY | 2024-04-02 17:59 | XMS_ITS | Referral Summary ---
Author Organization [facility] Address [address] [place] [address] Care Team Providers Care Die Repairer Trimmer Dies Name Role Phone Hawk Miller MD Primary Care Provider [phone] Allergies Active Allergy Reactions Criticality Noted Date [...] of Treatment Not on file Care Teams Die Repairer Trimmer Dies Relationship Specialty Start Date End Date Hawk Miller MD [address] [place] [address] PCP - General 02/01/11
--- OUTSIDE RECORDS SUMMARY | 2024-04-02 17:59 | XMS_ITS | Encounter Summary ---
Author Organization [facility] Address [address] [place] [address] Care Team Providers Care Methodologist Name Role Phone Hawk Miller MD Primary Care Provider [phone] Encounter Details Date Type Department Care Team (Late st Contact Info) Description 04/06/2020 Lab Requisition [facility] Pathology & Laboratory Medicine - [address] [address] Priti Salmeron MD [address] [place], [place] [id number] Encounter for other general examination Social History [...] POLYP, BIOPSY: - Tubular adenoma. 04/06/2020 17:19 [facility] Attestation By the signature below, the attending physician certifies that they have 1) personally conducted a gross and/or microscopic examination of the described specimen(s), and/or personally interpreted the results of laboratory testing of the described specimen(s), and 2) personally rendered or confirmed the above diagnosis. 04/06/2020 17:19 [facility] at 1719 Clinical History Dysphagia; Colon cancer screening 04/06/2020 17:19 [facility] Gross Description A. Received in [...] B1. Christina Lopez 04/06/2020 8:37 04/06/2020 17:19 [facility] Performing Lab [facility] 04/06/2020 17:19 [facility] Scanned Images 04/06/2020 17:19 [facility] Tissue STOMACH STRUCTURE / Unknown 04/05/2020 13:28 EDT 04/06/2020 7:40 EDT Tissue specimen (specimen) POLYP OF COLON / Unknown 04/05/2020 13:28 EDT 04/06/2020 7:40 EDT Priti Salmeron MD PATHOLOGY ORDERABLES [facility] [address] [place] [address] documented in this encounter Visit Diagnoses Diagnosis Encounter for other general examination documented in this encounter Care Teams Methodologist Relationship Specialty Start Date End Date Hawk Miller MD [address] [place] [address] PCP - General 02/01/11 documented as of this encounter
--- NOTE | 2024-04-02 18:21 | ED.GENADUL_ITS ---
Discharge Plan Disposition Patient Disposition: Home Condition: Stable Discharge Details Clinical Impression: Skin ulcer, COPD (chronic obstructive pulmonary disease), Varicose veins of both lower extremities, Pulmonary hypertension, Exertional dyspnea, Pedal edema Primary Care Provider: Gerald Bowens ED Provider: Maria Fernanda Richards Home Meds and New Rx's Prescriptions: New cephalexin 500 mg capsule 500 mg PO QID 7 Days Qty: 28 0RF No Action venlafaxine 75 mg capsule,extended release 24hr 75 mg PO DAILY Incruse Ellipta 62.5 mcg/actuation blister with device 1 inh IH DAILY oxybutynin chloride [Ditropan XL] 5 mg tablet extended release 24hr 5 mg PO DAILY Qty: 30 3RF albuterol sulfate [ProAir HFA] 8.5 GM HFA aerosol inhaler 2 puff Inhalation Q6H PRN guaifenesin [Mucinex] 1,200 MG tablet extended release 12hr 1,200 mg PO DAILY fluticasone propion-salmeterol [Advair HFA] 60 PUFF/INH HFA aerosol inhaler 1 puff PO DAILY acetaminophen [Tylenol] 325 mg Tablet 650 mg PO Q4H PRN PRNQty: 0 0RF ipratropium-albuterol 0.5 mg-3 mg(2.5 mg base)/3 mL Solution For Nebulization 3 ml UPD Q4H PRN PRN (Reason: shortness of breath or wheezing) Qty: 180 0RF multivitamin [Multiple Vitamins] Tablet 1 tab PO DAILY Qty: 30 0RF prednisone 20 mg Tablet 40 mg PO DAILY Qty: 4 0RF thiamine mononitrate (vit B1) [Vitamin B-1 (mononitrate)] 100 mg Tablet 100 mg PO DAILY Qty: 30 0RF pantoprazole [Protonix] 40 mg tablet,delayed release (DR/EC) 40 mg PO DAILY Qty: 30 0RF Lactobacillus acidophilus Capsule 1,000 mmu cells PO DAILY Qty: 30 0RF Rx Instructions: administer with a meal nystatin 100,000 unit/gram powder 1 applic topical TID Qty: 30 0RF Rx Instructions: apply to reddened area in the groin/skin folds furosemide 20 mg tablet 20 mg PO DAILY Qty: 2 0RF Discharge Instructions Instructions: Cellulitis (skin infection) in adults - Discharge instructions Additional Instructions: You were seen in the ED for weeping skin ulcers. We have given you antibiotics for infection, please take all of them until gone, even if you start to feel better. Please continue all other medications and follow up with your PCP. Thank you for allowing us to be part of your care. Discharge Data Discharge Date/Time-TO BE ENTERED AT DEPARTURE: 04/02/24 18:36 HPI General Mode of arrival: ambulatory . Date/Time Provider Initiated Documentation: 04/02/24 17:55 . Limitations to Documentation: no limitations . Information obtained by: patient, family and old records reviewed . HPI Narrative: MDM: This is a 64-year-old female patient with a past medical history significant for CHF, pulmonary hypertension, peripheral edema, who is presenting for evaluation of weeping ulcers to her lower extremities. My differential includes but is not limited to skin breakdown due to edema, certainly considered cellulitis, no fluctuance to suggest abscess. The patient has no unilaterality to her symptoms to suggest DVT, has strong DP pulses that are symmetrical bilaterally and a preserved neurovascular examination that is reassuring against arterial occlusion, phlegmasia, and other vascular emergencies. The patient's heart failure medications have not been changed recently, and she states that her level of edema is actually significantly improved from her baseline, though I certainly considered heart failure exacerbation. The patient is reassuringly hemodynamically appropriate with no systemic symptoms to suggest sepsis or bacteremia. ED Course: I had a shared decision-making conversation with the patient regarding laboratory workup which at this time she would prefer to avoid as she just had labs done a few days ago. Given the redness surrounding one of her ulcers, I did start her on a course of Keflex for early cellulitis, and recommended that she follow-up with her primary care provider in the next few days to discuss this visit and any symptoms that change, worsen, or persist. At this time, the patient has had a full medical evaluation and is safe for discharge to home. They are hemodynamically stable, ambulatory, and tolerating PO. They are understanding of the follow-up plan and return precautions. They left our facility without incident. Maria Fernanda Richards MD HPI: This is a 64-year-old female patient with a history of CHF, pulmonary hypertension, on chronic O2, presenting for evaluation of leg ulcers. The patient reports that she has a long history of peripheral edema but today noted a new ulcer that was weeping clear fluid. She states that she noted that one of her pre-existing ulcers had some redness surrounding it. She has not noted any pus draining from the area, has actually noted improvement in the amount of peripheral edema since increasing her Lasix to 40 mg, and states that she is not experiencing pain. She denies numbness or weakness of her lower extremities. She states that she is otherwise in her normal state of health with no fever, chills, shortness of breath, chest pain, or other acute concerns. She has not sustained trauma to her legs. Exam: Gen: Awake and alert, in no apparent distress HEENT: Non-icteric sclera Neck: Supple Lungs: No apparent respiratory distress, normal respiratory effort. At her baseline oxygen level CV: Appears well perfused, strong and symmetrical distal pulses Abdomen: Non-distended MSK: Moves 4 extremities without apparent limitation in ROM. The patient has 2+ peripheral edema, symmetrical bilaterally with no unilateral calf swelling or tenderness. Her left leg has 4-5 small, shallow ulcers, 1 of which is weeping clear serous fluid. A well-healing ulcer does have some mild redness without induration or warmth surrounding it. No fluctuance palpable. DP pulses present and symmetrical Skin: Visualized skin without rashes, cyanosis. Neuro: Normal Gait, no obvious focal deficits or facial asymmetry. Full sensation, circulation, and range of motion/strength of the bilateral lower extremities. Speaks in full, clear sentences. Psych: Appropriate for situation. Related Data Home Medications ?Medication ?Instructions ?Recorded ?Confirmed albuterol sulfate 90 mcg/actuation 2 puff inhalation Q6H PRN 01/21/18 02/19/24 aerosol inhaler (ProAir HFA) guaifenesin 1,200 mg tablet, 1,200 mg PO DAILY 01/21/18 02/19/24 extended release 12 hr (Mucinex) fluticasone propionate 230 1 puff PO DAILY 03/10/18 02/19/24 mcg-salmeterol 21 mcg/actuation HFA inhaler (Advair HFA) umeclidinium 62.5 mcg/actuation 1 inh inhalation DAILY 04/10/19 02/19/24 blister powder for inhalation (Incruse Ellipta) venlafaxine 75 mg capsule,extended 75 mg PO DAILY 03/29/20 02/19/24 release 24 hr Lactobacillus acidophilus 1,000 mmu cells PO DAILY #30 caps 04/25/20 02/19/24 acetaminophen 325 mg tablet 650 mg (2 x 325 mg) PO Q4H PRN PRN 04/25/20 02/19/24 (Tylenol) #0 tabs furosemide 20 mg tablet 20 mg PO DAILY #2 tabs 04/25/20 02/19/24 ipratropium 0.5 mg-albuterol 3 mg 3 ml UPD Q4H PRN PRN shortness of 04/25/20 02/19/24 (2.5 mg base)/3 mL nebulization breath or wheezing #180 mL soln multivitamin (Multiple Vitamins 1 tab PO DAILY #30 tabs 04/25/20 02/19/24 tablet) nystatin 100,000 unit/gram topical 1 applic topical TID #30 grams 04/25/20 02/19/24 powder pantoprazole 40 mg tablet,delayed 40 mg PO DAILY #30 tabs 04/25/20 02/19/24 release (Protonix) prednisone 20 mg tablet 40 mg (2 x 20 mg) PO DAILY #4 tabs 04/25/20 02/19/24 thiamine mononitrate (vit B1) 100 100 mg PO DAILY #30 tabs 04/25/20 02/19/24 mg tablet (Vitamin B-1 (mononitrate)) oxybutynin chloride 5 mg 5 mg PO DAILY #30 tabs 05/24/20 02/19/24 tablet,extended release 24 hr (Ditropan XL) cephalexin 500 mg capsule 500 mg PO QID 7 days #28 caps 04/02/24 Previous Rx's ?Medication ?Instructions ?Recorded Lactobacillus acidophilus 1,000 mmu cells PO DAILY #30 caps 04/25/20 acetaminophen 325 mg tablet 650 mg (2 x 325 mg) PO Q4H PRN PRN 04/25/20 (Tylenol) #0 tabs furosemide 20 mg tablet 20 mg PO DAILY #2 tabs 04/25/20 ipratropium 0.5 mg-albuterol 3 mg 3 ml UPD Q4H PRN PRN shortness of 04/25/20 (2.5 mg base)/3 mL nebulization breath or wheezing #180 mL soln multivitamin (Multiple Vitamins 1 tab PO DAILY #30 tabs 04/25/20 tablet) nystatin 100,000 unit/gram topical 1 applic topical TID #30 grams 04/25/20 powder pantoprazole 40 mg tablet,delayed 40 mg PO DAILY #30 tabs 04/25/20 release (Protonix) prednisone 20 mg tablet 40 mg (2 x 20 mg) PO DAILY #4 tabs 04/25/20 thiamine mononitrate (vit B1) 100 100 mg PO DAILY #30 tabs 04/25/20 mg tablet (Vitamin B-1 (mononitrate)) oxybutynin chloride 5 mg 5 mg PO DAILY #30 tabs 05/24/20 tablet,extended release 24 hr (Ditropan XL) cephalexin 500 mg capsule 500 mg PO QID 7 days #28 caps 04/02/24 Allergies Allergy/AdvReac Type Severity Reaction Status Date / Time Sulfa (Sulfonamide AdvReac Severe LOWERS BP Unverified 04/22/20 14:59 Antibiotics) General Stated Complaint: GenMedical RADHA: 3 Course Vital Signs Vital signs: Vital Signs Temperature 37.3 C 04/02/24 17:23 Pulse 102 H 04/02/24 17:23 Respiratory Rate 15 04/02/24 17:23 Blood Pressure 113/67 04/02/24 17:23 Pulse Oximetry 82 L 04/02/24 17:23 Temperature 37.3 C 04/02/24 17:23 Temperature Source Tympanic 04/02/24 17:23 Pulse 102 H 04/02/24 17:23 Respiratory Rate 15 04/02/24 17:23 Blood Pressure 113/67 04/02/24 17:23 Pulse Oximetry 82 L 04/02/24 17:23 Pain Level 1 04/02/24 17:23 Comment PT reports resp Hx. States that 82% is normal for her. 04/02/24 17:23 Medical Decision Making Quality:SDOH Health Related Social Needs: No Data to Display PFSH All Active Problems Pedal edema (Acute) Skin ulcer (Acute) COPD (chronic obstructive pulmonary disease) (Acute) Mixed stress and urge urinary incontinence (Acute) Screening for malignant neoplasm of cervix (Acute) Urinary, incontinence, stress female (Acute) Acute bacterial bronchitis (Acute) Chemical gastritis (Chronic) Tobacco abuse (Chronic) Pulmonary hypertension (Acute) Snoring (Chronic) Lumbar nerve root impingement (Acute) Discharge planning issues (Acute) DVT prophylaxis (Acute) Chronic back pain (Chronic) Fungal dermatitis (Acute) Folliculitis (Acute) Acute exacerbation of chronic obstructive pulmonary disease (COPD) (Acute) Asthma exacerbation in COPD (Acute) Hypoxia (Chronic) Colon polyp (Acute) Diverticulosis (Acute) Gastritis (Acute) Esophagitis (Acute) Hearing loss in left ear (Acute) Cataract, left eye (Acute) Multiple lung nodules (Acute) Macrocytosis (Acute) Exertional dyspnea (Acute) Intermittent palpitations (Acute) Lump of right breast (Acute) Cough (Acute) Dysphagia (Acute) Colon cancer screening (Acute) Nausea & vomiting (Acute) Diarrhea (Acute) Varicose veins of both lower extremities (Acute) Depression (Chronic) Alcohol abuse (Chronic) Medical History Smoker Adenomatous colon polyp H/O recurrent urinary tract infection Lower back pain Surgical History Tubal ligation status Hx of tonsillectomy History of shoulder surgery Hx of cataract surgery bilat. Family History Other Cancer Diabetes Heart disease Social History Smoking/Tobacco Use Status: Current every day Tobacco Type: cigarettes Smoking risk assessment performed?: Yes Alcohol Intake: current Alcohol Intake frequency: 0-2 drinks per day Alcohol type: hard liquor Drug use: Never Substance use type: does not use Do you feel safe at home: Yes Do you feel safe in your relationship?: Yes
[2024-04-02] MEDS: Cephalexin 500 MG CAP PO (18:27)
[2024-04-02] MEDS: Cephalexin 500 MG CAP, 4 CAPS/BTL PO (18:27)
[2024-04-02 18:32] VITALS: RESP 16
== END 2024-04-02 18:36 | disposition home or self-care (01) ==
PROVIDERS: Emergency Provider Emergency Medicine; PCP Family Medicine
DX: L97.921 Non-pressure chronic ulcer of unspecified part of left lower leg limited to breakdown of skin (principal); I83.93 Asymptomatic varicose veins of bilateral lower extremities
CPT/HCPCS: 99283

== ENCOUNTER 2024-04-09 16:18 | Outpatient (REF) | payer OTHER, MEDICARE, SELFPAY ==
[2024-04-09 14:37] LABS: Anion Gap 5.5 mmol/L (3-11); BUN 8 mg/dL (7-18); CO2 33.5 mmol/L (21.0-32.0); CREATININE 0.7 mg/dL (0.55-1.02); Calcium 9.4 mg/dL (8.5-10.1); Chloride 96 mmol/L (98-107); Estimated GFR 97.12 (mL/min/1.73m2); Glucose 130 mg/dL (74-106); Sodium 135 mmol/L (136-145)
== END 2024-04-09 16:19 | disposition home or self-care (01) ==
LOC: NCHCN 16:18
PROVIDERS: PCP Family Medicine; Visit Provider Family Medicine
DX: R60.0 Localized edema (principal)
CPT/HCPCS: 80048

== ENCOUNTER 2024-09-21 12:58 | Outpatient (REF) | payer OTHER, MEDICARE, SELFPAY ==
[2024-09-21 15:41] LABS: Abs Immature Grans 0.05 10^3/uL (0.0-0.06); Absolute Basophil Count 0.11 10^3/uL (0.0-0.2); Absolute Eosinophil Count 0.33 10^3/uL (0.0-0.7); Absolute Lymphocyte Count 2.66 10^3/uL (1.2-3.4); Absolute Monocyte Count 0.98 10^3/uL (0.1-0.8); Absolute Neutrophil Count 6.89 10^3/uL (1.2-6.7); HCT 44.8 % (36.0-46.0); HGB 13.8 g/dL (11.2-15.7); Immature Grans % 0.5 %; Lymphocytes % 24.1 %; MCH 30.7 pg (27.0-33.0); MCHC 30.8 % (32.0-36.0); MCV 100 fL (80-95); MPV 10.9 fL (8.0-11.0); Monocytes % 8.9 %; Neutrophils % 62.5 %; Platelet Count 250 10^3/uL (130-400); RDW-SD 58.3 fL; WBC 11.02 10^3/uL (4.4-10.8)
[2024-09-21 16:09] LABS: ALT 20 U/L (14-59); AST 21 U/L (15-37); Albumin 3.8 g/dL (3.4-5.0); Alkaline Phosphatase 146 U/L (46-116); BUN 6 mg/dL (7-18); Bilirubin, Total 0.83 mg/dL (0.2-1.0); CREATININE 0.6 mg/dL (0.55-1.02); Calcium 9.1 mg/dL (8.5-10.1); Chloride 104 mmol/L (98-107); Glucose 141 mg/dL (74-106); Potassium 4.7 mmol/L (3.5-5.1); Sodium 141 mmol/L (136-145)
== END 2024-09-21 12:59 | disposition home or self-care (01) ==
LOC: NCHCN 12:58
PROVIDERS: PCP Family Medicine; Visit Provider Family Medicine
DX: R60.0 Localized edema (principal); J44.9 Chronic obstructive pulmonary disease, unspecified
CPT/HCPCS: 80053; 85025

== ENCOUNTER 2025-07-14 16:21 | Outpatient (REF) | payer MEDICARE, OTHER, SELFPAY ==
[2025-07-14 21:22] LABS: HCT 41.7 % (36.0-46.0); HGB 12.3 g/dL (11.2-15.7); MCH 27.6 pg (27.0-33.0); MCHC 29.5 % (32.0-36.0); MCV 94 fL (80-95); MPV 10.9 fL (8.0-11.0); Platelet Count 237 10^3/uL (130-400); RBC 4.45 10^6/uL (3.93-5.22); RDW 18.0 % (11.7-14.6); RDW-SD 60.4 fL; WBC 11.88 10^3/uL (4.4-10.8)
[2025-07-14 21:37] LABS: ALT 13 U/L (10-49); AST 15 U/L (<34); Albumin 4.3 g/dL (3.2-5.0); Alkaline Phosphatase 132 U/L (46-116); Anion Gap 4.5 mmol/L (3-11); BUN 7 mg/dL (9-23); Bilirubin, Total 0.7 mg/dL (0.2-1.2); CO2 29.5 mmol/L (20.0-31.0); Calcium 9.1 mg/dL (8.3-10.6); Chloride 107 mmol/L (98-107); Glucose 153 mg/dL (74-106); Potassium 4.2 mmol/L (3.5-5.1); Sodium 141 mmol/L (136-145); Total Protein 7.9 g/dL (5.7-8.2)
[2025-07-14 21:40] LABS: Hemoglobin A1C 6.5 % (<5.7)
== END 2025-07-14 16:22 | disposition home or self-care (01) ==
LOC: NCHCN 16:21
PROVIDERS: PCP Family Medicine; Visit Provider Family Medicine
DX: R73.03 Prediabetes (principal); F10.20 Alcohol dependence, uncomplicated
CPT/HCPCS: 80053; 85027; 83036